=== PATIENT | male | born 1955 | race Caucasian/White ===

== ENCOUNTER → 2017-04-26 11:48 | Outpatient (CLI) | payer OTHER, SELFPAY ==
--- NOTE | 2017-04-26 11:56 | RAD_ITS ---
STUDY: X-RAY - PELVIS AND RIGHT HIP REASON FOR EXAM: Male, 61 years old. Pain, recent injury TECHNIQUE: Three views of the pelvis and hip were obtained. COMPARISON: None. FINDINGS: The bowel gas pattern is unremarkable. There are numerous phleboliths in the pelvis. There are scattered vascular calcifications. There are mild degenerative changes in the lower lumbar spine. There are surgical changes in the lower lumbar spine. The visualized iliac wings, sacroiliac joints and sacrum are unremarkable. No abnormalities are seen in the visualized superior and inferior pubic rami. Normal appearing pubic symphysis. The visualized ischial tuberosities are unremarkable. The proximal femur shows no significant abnormalities. The acetabulum shows no significant abnormalities. There is mild articular joint space narrowing of the hip. RAD/Hip 2-3 Views with Pelvis IMPRESSION: No acute abnormalities are seen in the pelvis or right hip. There are mild degenerative changes in the right hip joint. Electronically Signed: Lillian Ozuna MD at 17:33 EST Tel Direct: [phone], Service support ,
== END ==
PROVIDERS: Family Provider Internal Medicine; PCP Internal Medicine; Visit Provider Internal Medicine
DX: M25.551 Pain in right hip (principal)
CPT/HCPCS: 73502

== ENCOUNTER → 2018-01-31 13:22 | Outpatient (CLI) | payer OTHER, SELFPAY ==
--- NOTE | 2018-01-31 13:26 | RAD_ITS ---
STUDY: X-RAY - RIGHT HAND REASON FOR EXAM: Male, 62 years old. Chronic pain TECHNIQUE: 2 view(s) of the hand. COMPARISON: None. FINDINGS: There are degenerative changes involving the interphalangeal joints of the little finger. There are no acute fractures or dislocations. The soft tissues noted are normal.. . Electronically Signed: Tan Miller MD at 4:42 EST Tel , Service support , RAD/Hand 2 Views
--- NOTE | 2018-01-31 13:26 | RAD_ITS ---
STUDY: X-RAY - LEFT HAND REASON FOR EXAM: Male, 62 years old. Chronic pain TECHNIQUE: 2 view(s) of the hand. COMPARISON: None. FINDINGS: Osteoarthritis is present involving the scaphotrapezial joint, the first carpometacarpal joint, the first interphalangeal joint, and the second distal interphalangeal joint. No fractures or erosive lesions are seen. Soft tissues are intact. RAD/Hand 2 Views IMPRESSION: Multifocal osteoarthritis as described. Electronically Signed: Leon Starks MD at 9:39 EST Tel , Service support ,
== END ==
PROVIDERS: Family Provider Internal Medicine; PCP Internal Medicine; Referring Provider Internal Medicine; Visit Provider Internal Medicine
DX: M79.641 Pain in right hand (principal); M79.642 Pain in left hand
CPT/HCPCS: 73120

== ENCOUNTER 2018-08-07 11:21 | Emergency (ER) | payer OTHER, SELFPAY ==
[2018-08-07 11:23] VITALS: BP 125/83; PULSE 66; RESP 16; TEMP 36.6; O2SAT 99; BMI 29.0
--- NOTE | 2018-08-07 11:49 | ED.VIS.GEN ---
History of Present Illness Chief Complaint: Foreign Body Informant: Patient Onset: Today Context: Sudden Onset Timing: Continuous Quality: Barbed fishhook right thenar eminence Location: Right thenar eminence Current Severity: Mild Maximum Severity: Moderate Worsened by: attempt to remove fishhook Relieved by: Nothing Associated Symptoms: No paresthesia or anesthesia Narrative: Patient is a 62-year-old male who presents with fishhook right thenar eminence. Immunization is not up-to-date. He is on no immunosuppressive agents. No history rheumatic fever, murmur, SBE or IV drug use. Stanberry has never been used. Prior similar symptoms: No Recent Illness/Hospitalization: No - Past Medical History (1) Prostate CA Status: Acute (2) Anxiety disorder Status: Chronic (3) Bicuspid aortic valve Status: Chronic (4) COPD (chronic obstructive pulmonary disease) Status: Chronic Past Medical History - Allergies and Home Meds Allergies/Adverse Reactions: Allergies acetaminophen [From Vicodin] Adverse Reaction (Verified 08/07/18 11:23) Itching hydrocodone bitartrate [From Vicodin] Adverse Reaction (Verified 08/07/18 11:23) Itching Primary Care Physician: Lyudmila Brewer DO [Primary Care Provider] - Prior records reviewed: Yes - History of chronic pain Surgical History: - - 3 back surgeries Prostate surgery 2 knee surgeries 2 shoulder surgeries Lives: Spouse/ Significant Other Smoking Status: Former smoker Drugs: None - Family History Maternal Family History: Reports: No pertinent history Additional Family History: father had lung cancer Review of Systems General: Denies: Chills, Fever, Malaise, Sweats Musculoskeletal: Reports: Extremity Pain. Denies: Myalgias, Arthralgias, Neck pain, Back pain, Swelling Skin: Reports: Wounds. Denies: Rash Neurological: Denies: Weakness, Parasthesia, Numbness Physical Exam Vital Signs/Narrative: Vital Signs Temp Pulse Resp BP Pulse Ox 08/07/18 11:23 97.8 F 66 16 125/83 H 99 Inital Vital Signs reviewed: Yes General: Well nourished, Well developed, No Acute Distress Head: Normocephalic, Atraumatic Eyes: Perrl, EOMI ENT: Moist mucous membranes, No rhinorrhea Cardiovascular: Regular rate, Regular rhythm Respiratory: No distress Extremities: No edema, Tenderness - Secondary to retained foreign body Skin: Normal color, No rash, Trauma. Negative for: Cyanosis, Diaphoresis, Jaundice Neurological: Alert, Oriented x3, Cranial nerves II-XII grossly intact, Normal Strength, Normal Sensation Diagnostic/Tx/Re-eval - Medical Decision Making She has a barbed 3 took more. 1 of the hooks went into the right thenar eminence. There is no evidence of infection. The area was anesthetized. The fishhook was cut with wire cutters. The part of the 3 pronged hook was pushed through and removed without difficulty. Immunization was updated and patient discharged with appropriate home-going instructions. Procedures Procedure(s): Oval fishhook right thenar eminence as described under medical decision making. ED Disposition - Plan for ED Patient: Disposition: Home or Assisted Living Diagnosis: Stanberry injury to finger Instructions: ED Foreign Body Soft Tissue Removed Referrals: Lyudmila Brewer, [Primary Care Provider] - As Needed
[2018-08-07] MEDS: Diphth,Pertuss(Acell),Tet Vac 0.5 ML Vial IM (11:59)
== END 2018-08-07 12:08 | disposition home or self-care (01) ==
LOC: ED 12:04
PROVIDERS: Emergency Provider Emergency Medicine; Family Provider Internal Medicine; PCP Internal Medicine
DX: S69.91XA Unspecified injury of right wrist, hand and finger(s), initial encounter (principal); W45.8XXA Other foreign body or object entering through skin, initial encounter; Z87.891 Personal history of nicotine dependence; Z88.5 Allergy status to narcotic agent; J44.9 Chronic obstructive pulmonary disease, unspecified; Q23.1 Congenital insufficiency of aortic valve; F41.9 Anxiety disorder, unspecified; Z85.46 Personal history of malignant neoplasm of prostate
CPT/HCPCS: 90471; 90715; 99284

== ENCOUNTER → 2018-10-18 07:11 | Outpatient (CLI) | payer OTHER, SELFPAY ==
--- NOTE | 2018-10-18 07:28 | MRI_ITS ---
STUDY: MRI LUMBAR SPINE WITHOUT CONTRAST REASON FOR EXAM: Male, 62 years old. Back pain and radiculopathy TECHNIQUE: Standardized fat and water weighted pulse sequences were obtained in the sagittal and axial planes. COMPARISON: MR lumbar spine 12/19/2005 FINDINGS: There is posterior fusion of L4 and L5 with transpedicular screws and rods. T12-L1: Normal endplates. Mild disc space narrowing and annular disc bulge. Normal bilateral facet joints. Normal central canal and bilateral lateral recesses. Normal bilateral intervertebral neural foramina. Normal lumbar lordosis. There is no substantial scoliosis. Normal conus medullaris that terminates at the T12-L1 level L1-2: Normal endplates. Mild disc space narrowing and annular disc bulge. Normal bilateral facet joints. Normal central canal and bilateral lateral recesses. Normal bilateral intervertebral neural foramina. L2-3: Normal endplates. Mild disc space narrowing and annular disc bulge. Normal bilateral facet joints. Normal central canal and bilateral lateral recesses. Normal bilateral intervertebral neural foramina. L3-4: Normal endplates. There is mild disc space narrowing and mild annular disc bulge. There is a new central, right paracentral disc protrusion with inferior migration this measures approximately 1.3 x 1.6 x 2 cm. Bilateral facet arthropathy. There is ligamentum flavum hypertrophy. There is moderate to marked right-sided central canal narrowing and impingement on the right descending nerve root. There is mild right neural foraminal narrowing. L4-5: Normal endplates. Normal disc height, hydration and morphology. Normal bilateral facet joints. Normal central canal and bilateral lateral recesses. Evaluation of the neural foramina somewhat limited by metallic artifact. L5-S1: Normal endplates. Normal disc height, hydration and morphology. Normal bilateral facet joints. Normal central canal and bilateral lateral recesses. Normal bilateral intervertebral neural foramina. Normal visualized sacral ala. Normal visualized paraspinous soft tissue structures. MRI/Spine Lumbar (Routine) IMPRESSION: There is a new, large central and right paracentral disc protrusion at L3-L4 with inferior migration as described in detail above. Mild to moderate multilevel degenerative disc disease as described above. Electronically Signed: Mercedes Macario, at 10:26 EDT Tel , Service support ,
== END ==
PROVIDERS: Family Provider Internal Medicine; PCP Internal Medicine; Referring Provider Anesthesiology Pain Medicine; Visit Provider Anesthesiology Pain Medicine
DX: M51.26 Other intervertebral disc displacement, lumbar region (principal); S32.009A Unspecified fracture of unspecified lumbar vertebra, initial encounter for closed fracture
CPT/HCPCS: 72148

== ENCOUNTER → 2019-07-07 07:52 | Outpatient (CLI) | payer MEDICARE, OTHER, SELFPAY ==
--- NOTE | 2019-07-07 07:59 | CT_ITS ---
STUDY: CT SCAN LOWER EXTREMITY LEFT REASON FOR EXAM: Male, 63 years old. LEFT KNEE OSTEOARTHRITIS, SWAPNIL PROTOCOL RADIATION DOSAGE (If Supplied By Facility): CTDIvol = ( 30.70 ) mGy, DLP = ( 2142.08 ) mGycm. Individualized dose optimization techniques were used for this CT.? TECHNIQUE: Multiple axial tomographic images of the left hip joint, left knee joint and left ankle joint were obtained. Axial and coronal reconstruction was obtained as well. COMPARISON: None. FINDINGS: Focal calcification is seen overlying the greater trochanter of the proximal left femur suggestive of a calcific bursitis. There is minimal degree of joint space narrowing. There is evidence of a chondrocalcinosis of the medial and lateral menisci. The joint space is well maintained. Mild degree of degenerative changes at the patellofemoral joint with a spur formation at the insertion of the quadriceps tendon. Vascular calcification. There is evidence of a talar beak involving the anterior aspect of the talus. There is evidence of a plantar spur as well as a spur at insertion of the Achilles tendon. There is also evidence of an os trigonum of the ankle. CT/Extremity Lower without Contra IMPRESSION: Chondrocalcinosis of the medial and lateral menisci with the mild patellofemoral osteoarthritis. Findings suggestive of calcific tendinitis of the greater trochanter. Talar beak. Plantar spurs. Electronically Signed: Vasquez Smith, at 10:08 EDT , Service support ,
== END ==
PROVIDERS: PCP Internal Medicine; Referring Provider Orthopaedic Surgery; Visit Provider Orthopaedic Surgery
DX: M17.12 Unilateral primary osteoarthritis, left knee (principal)
CPT/HCPCS: 73700

== ENCOUNTER 2019-07-28 11:47 | Observation (INO) | payer MEDICARE, OTHER, SELFPAY ==
--- NOTE | 2019-07-24 08:48 | EKG12_ITS ---
Test Reason : PRE-OP Blood Pressure : / mmHG Vent. Rate : 052 BPM Atrial Rate : 052 BPM P-R Int : 184 ms QRS Dur : 104 ms QT Int : 426 ms P-R-T Axes : 063 019 086 degrees QTc Int : 396 ms Sinus bradycardia Nonspecific T wave abnormality Abnormal ECG Confirmed by SILVANO MALLORY, MAGALYS ([id number]), fashion editor ANTONIETTA FOSTER ([id number]) on 07/28/2019 11:33:41 AM Referred By: Chance Steve Confirmed By:JEFFRY SCHAEFER MD
[2019-07-24 09:00] LABS: Absolute Lymphocyte Count 1.06 X10^3/uL (0.83-4.51); Absolute Neutrophil Count 2.5 X10^3/uL (2.0-7.7); Basophil# 0.04 X10^3/uL; Basophil% 0.9 % (0-1); Eosinophil# 0.16 X10^3/uL; Eosinophils% 3.7 % (0-5); Hematocrit 41.9 % (40-54); Hemoglobin 14.1 g/dL (13.0-16.5); Lymphocyte # 1.06 X10^3/ul (4.0); Lymphocyte % 24.3 % (19-41); Mean Corp Hgb Conc 33.7 g/dL (32-36); Mean Corpuscular Hgb 30.9 pg (27.0-32.0); Mean Corpuscular Volume 91.7 fL (80-94); Mean Platelet Vol. 8.8 fl (6.2-12.0); Monocyte# 0.56 X10^3/uL; Monocyte% 12.8 % (0-10); NRBC Flagged by Analyzer 0 % (0-5); Neutrophil # 2.53 X10^3/uL (2.7-7.7); Neutrophil % 58.1 % (47-70); Platelet Count 291 K/mm3 (150-450); RBC Distribution Width CV 12.1 % (11.6-14.6); RBC Distribution Width SD 40.5 fl (35.1-43.9); Red Blood Count 4.57 M/mm3 (4.6-6.2); White Blood Count 4.4 K/mm3 (4.4-11.0)
[2019-07-24 09:21] LABS: Anion Gap 6 (5-15); BUN 15 mg/dL (7-18); BUN/Creat Ratio 14.2 RATIO (10-20); Calcium,Total 9.1 mg/dL (8.5-10.1); Chloride 105 mmol/L (98-107); Creatinine, Serum 1.06 mg/dL (0.70-1.30); EST Glomerular Filtration Rate 74 mL/min (>60); Est Glom Filt Rate - Afr Amer 90 mL/min (>60); Glucose 114 mg/dL (74-106); Potassium 4.5 mmol/L (3.5-5.1); Sodium Level 137 mmol/L (136-145)
[2019-07-24 09:21] LABS: AST(SGOT) 44 U/L (15-37); Alanine Aminotransfer ALT/SGPT 64 U/L (16-61); Albumin, Serum 3.6 g/dL (3.2-5.0); Alkaline Phosphatase 87 U/L (45-117); Bilirubin, Direct 0.18 mg/dL (0.00-0.30); Globulin 3.7 g/dL (2.2-4.2); Protein, Total 7.3 g/dL (6.4-8.2)
[2019-07-24 09:44] LABS: International Normalized Ratio 0.9; Prothrombin Time (Protime)PT. 11.7 SECONDS (11.7-14.9)
[2019-07-24 09:45] LABS: Partial Thromboplast Time 29.8 Seconds (24.1-36.2)
[2019-07-25 13:07] LABS: Probe Check PASS; SARS-COV-2 DNA by PCR Negative (Negative); Specimen Processing Control PASS
[2019-07-28] VITALS (13 sets, daily range): BP systolic 100–135; BP diastolic 48–77; PULSE 57–98; RESP 16–18; TEMP 36.3–37.1; O2SAT 94–100; BMI 30.3
[2019-07-28] MEDS: Acetaminophen 500 MG Tablet 1000 MG PO ×3 (08:14→22:05)
[2019-07-28] MEDS: Gabapentin 600 MG Tablet PO (08:15)
[2019-07-28] MEDS: Lactated Ringers 1,000 ML 100 ML IV (08:20)
[2019-07-28 08:56] LABS: Bedside Glucose 105 mg/dL (70-110)
--- NOTE | 2019-07-28 09:30 | KNEE_PTH ---
PATIENT: KIERSTEN ANDREA LOC: MS3 U#:[id number] AGE/SX: 63/M ROOM: PR313 RE07/28/[address]: Dr. Chance Steve DO : 1955 BED: 1 DIS: 07/29/2019 SPEC #: [id number] RECD: 07/28/19 13:18 STATUS: BRUCE REQ #: [id number] RYAN: 07/28/19 09:[address]: Chance Steve DEPT: SURGICAL PATHOLOGY RECD BY: Christopher Layton ENTERED: 07/29/19 09:34 SP TYPE: TOTAL KNEE OTHR DR: Dr. Lyudmila Brewer DO Tissues: Knee, NOS Procedures: Decalcification bone/plaque Surgery Specimen Level IV HEADER OPERATION: ERAS, total knee arthroplasty, robotic assisted PRE-OP DIAGNOSIS: Unilateral primary osteoarthritis left knee TISSUE SUBMITTED: Soft tissue and bone left knee MICROSCOPIC DIAGNOSIS Bone and soft tissue of left knee, total knee resection: Consistent with degenerative joint disease. AM:lawson 08/01/19 MICROSCOPIC DESCRIPTION Slides are reviewed. GROSS DESCRIPTION Received is one container designated bone and soft tissue left knee. The specimen consists of multiple fragments of hawkins-yellow bone measuring in aggregate 15 x 10 x 1.5 cm. Also in the specimen container are multiple fragments of yellow-white soft tissue measuring in aggregate 2 x 1 x 0.5 cm. A number of bony fragments contain articular surfaces consistent with tibial plateau and femoral condyle and displaying prominent osteophyte formation, eburnation, and bone erosion. [employer] Consultant sections are submitted in two cassettes as follows: 1 - soft tissue, 2 - bone after decalcification. / AM:lawson 07/29/19 TC:5 CPT: 41667, 18668
[2019-07-28] MEDS: Cefazolin 2 GM in 0.9% Normal Saline 100 ML IV (09:32)
--- NOTE | 2019-07-28 12:10 | RAD_ITS ---
STUDY: X-RAY - LEFT KNEE REASON FOR EXAM: Male, 63 years old. Post op left knee TECHNIQUE: AP and lateral view(s) of the knee. COMPARISON: None. FINDINGS: Normal visualized distal femur. Normal visualized proximal tibia and fibula. Normal proximal tibiofibular articulation. The patient is status post total knee replacement. There is good alignment. Postoperative soft tissue changes. RAD/Knee 1 or 2 Views IMPRESSION: The patient is status post total knee replacement. There is good alignment. Postoperative soft tissue changes. Electronically Signed: Vasquez Smith, at 13:00 EDT , Service support ,
[2019-07-28 12:50] LABS: Hemoglobin 13.8 g/dL (13.0-16.5); Mean Corp Hgb Conc 32.9 g/dL (32-36); Mean Corpuscular Hgb 30.9 pg (27.0-32.0); Mean Corpuscular Volume 94.2 fL (80-94); Mean Platelet Vol. 8.5 fl (6.2-12.0); Platelet Count 260 K/mm3 (150-450); RBC Distribution Width CV 12.4 % (11.6-14.6); RBC Distribution Width SD 42.5 fl (35.1-43.9); Red Blood Count 4.46 M/mm3 (4.6-6.2); White Blood Count 6.6 K/mm3 (4.4-11.0)
[2019-07-28 12:58] LABS: Anion Gap 8 (5-15); BUN 16 mg/dL (7-18); Calcium,Total 8.3 mg/dL (8.5-10.1); Chloride 106 mmol/L (98-107); Creatinine, Serum 1.23 mg/dL (0.70-1.30); EST Glomerular Filtration Rate 63 mL/min (>60); Est Glom Filt Rate - Afr Amer 76 mL/min (>60); Estimated Creatinine Clearance 67.67 ml/min; Glucose 139 mg/dL (74-106); Potassium 4.2 mmol/L (3.5-5.1); Sodium Level 139 mmol/L (136-145)
[2019-07-28] MEDS: Lactated Ringers 1,000 ML 125 ML IV ×2 (13:21→21:38)
[2019-07-28] MEDS: morphine SR 15 MG Tablet PO ×2 (14:55→22:00)
[2019-07-28] MEDS: Cefazolin 1 GM/50 ML BAG IV (17:45)
[2019-07-28] MEDS: Senna/Docusate Sodium 1 Tablet 2 TABLET PO (22:05)
[2019-07-28] MEDS: Atorvastatin Calcium 10 MG Tablet PO (22:05)
[2019-07-28] MEDS: Aspirin 325 MG Tablet PO (22:05)
[2019-07-29] MEDS: Cefazolin 1 GM/50 ML BAG IV (01:58)
[2019-07-29 02:00] VITALS: BP 110/76; PULSE 74; RESP 16; TEMP 36.9; O2SAT 97
[2019-07-29] MEDS: morphine SR 15 MG Tablet PO ×2 (05:49→13:19)
[2019-07-29] MEDS: Acetaminophen 500 MG Tablet 1000 MG PO ×2 (05:50→13:19)
[2019-07-29 06:06] LABS: Hematocrit 37.1 % (40-54); Mean Corp Hgb Conc 32.3 g/dL (32-36); Mean Corpuscular Hgb 31.3 pg (27.0-32.0); Mean Corpuscular Volume 96.6 fL (80-94); Mean Platelet Vol. 8.7 fl (6.2-12.0); Platelet Count 249 K/mm3 (150-450); RBC Distribution Width CV 12.9 % (11.6-14.6); RBC Distribution Width SD 45.6 fl (35.1-43.9); Red Blood Count 3.84 M/mm3 (4.6-6.2)
[2019-07-29 06:29] LABS: Anion Gap 6 (5-15); BUN 12 mg/dL (7-18); BUN/Creat Ratio 11.9 RATIO (10-20); Calcium,Total 7.8 mg/dL (8.5-10.1); Chloride 109 mmol/L (98-107); Creatinine, Serum 1.01 mg/dL (0.70-1.30); EST Glomerular Filtration Rate 79 mL/min (>60); Est Glom Filt Rate - Afr Amer 95 mL/min (>60); Estimated Creatinine Clearance 82.41 ml/min; Glucose 152 mg/dL (74-106); Potassium 4.4 mmol/L (3.5-5.1); Sodium Level 141 mmol/L (136-145)
--- NOTE | 2019-07-29 07:07 | PCM.PN.ORT ---
Subjective: The patient was sitting in chair upon examination. Patient denies chest pain, shortness of breath, dizziness, lightheadedness, nausea, vomiting or calf pain. Pain is controlled on medications. No adverse events overnight. The patient states he is doing well overall. Denies any questions or concerns. Objective: Vital signs stable. Patient is afebrile. Patient is able to plantar flex and dorsiflex actively. Sensation is intact to light touch to saphenous, sural, superficial and deep peroneal and tibial nerve distributions. Dressing is clean, dry and intact. Negative Homans bilaterally. Negative signs and symptoms of DVT. - Physical Exam Vitals/I&O's: Vital Signs Temp Pulse Resp BP Pulse Ox 98.5 F 74 16 110/76 97 07/29/19 02:00 07/29/19 02:00 07/29/19 02:00 07/29/19 02:00 07/29/19 02:00 Oxygen Flow Rate (L/min) 4 Oxygen Delivery Method Nasal Cannula Weight: 104.2 kg Body Mass Index (BMI) 30.3 Intake and Output for Last 24 Hours 07/27/19 07/28/19 07/29/19 23:59 23:59 23:59 Intake Total 3173.75 / 3773.75 2100. / 2099.00 Output Total 250 / 1500 2099 / 2099 Balance 2923.75 / 2273.75 0 / 0 General: Alert, Oriented x3, Cooperative HEENT: Atraumatic, PERRLA Extremities: Capillary Refill Less than 3 Seconds, No Calf Tenderness, Edema - Postoperative swelling appreciated. Skin: No rashes, No breakdown Neurological: Cranial nerves II-XII grossly intact Psych/Mental Status: Normal Affect, Appropriate Laboratory Results 07/28/19 08:10: POC Glucose 105 07/28/19 12:35: WBC 6.6, RBC 4.46 L, Hgb 13.8, Hct 42.0, MCV 94.2 H, MCH 30.9, MCHC 32.9, RDW Std Deviation 42.5, RDW Coeff of Doug 12.4, Plt Count 260, MPV 8.5 07/28/19 12:35: Sodium 139, Potassium 4.2, Chloride 106, Carbon Dioxide 25.0, Anion Gap 8, BUN 16, Creatinine 1.23, Estim Creat Clear Calc 67.67, Est GFR (MDRD) Af Amer 76, Est GFR (MDRD) Non-Af 63, BUN/Creatinine Ratio 13.0, Glucose 139 H, Calcium 8.3 L 07/29/19 05:42: WBC 7.0, RBC 3.84 L, Hgb 12.0 L, Hct 37.1 L, MCV 96.6 H, MCH 31.3, MCHC 32.3, RDW Std Deviation 45.6 H, RDW Coeff of Doug 12.9, Plt Count 249, MPV 8.7 07/29/19 05:42: Sodium 141, Potassium 4.4, Chloride 109 H, Carbon Dioxide 26.0, Anion Gap 6, BUN 12, Creatinine 1.01, Estim Creat Clear Calc 82.41, Est GFR (MDRD) Af Amer 95, Est GFR (MDRD) Non-Af 79, BUN/Creatinine Ratio 11.9, Glucose 152 H, Calcium 7.8 L Current Medications Acetaminophen (Tylenol) 1,000 mg PO Q8 [facility] Last Admin: 07/29/19 05:50 Dose: 1,000 mg Documented by: [facility]) [facility] Admin: 07/28/19 22:05 Dose: 325 mg Documented by: Atorvastatin Calcium (Lipitor) 10 mg PO QHS [facility] Last Admin: 07/28/19 22:05 Dose: 10 mg Documented by: Cholecalciferol (Vitamin D (25mcg)) [facility] Last Admin: 07/28/19 17:45 Dose: 1,000 unit Documented by: Citalopram Hydrobromide (Celexa) 20 mg PO DAILY [facility] Cyclobenzaprine HCl (Flexeril) 10 mg PO TID PRN PRN PRN Reason: Muscle spasm Diphenhydramine HCl (Benadryl) 25 mg PO TID PRN PRN PRN Reason: ITCHING Docusate Sodium (Colace) 100 mg PO DAILY PRN PRN Reason: Constipation Sodium Chloride () 250 mls @ 15 mls/hr IV .[id number] PRN PRN Reason: Saline Flush Sodium Chloride () 250 mls @ 15 mls/hr IV .[id number] PRN PRN Reason: Additional IVPB Infusion Loratadine (Claritin) 10 mg PO DAILY [facility] Losartan Potassium (Cozaar) 50 mg PO DAILY [facility] Morphine Sulfate (Ms Contin) 15 mg PO TID [facility] Last Admin: 07/29/19 05:49 Dose: 15 mg Documented by: Ondansetron HCl (Zofran) 4 mg IV Q8H PRN PRN PRN Reason: NAUSEA Oxycodone HCl (Oxyir) 5 - 10 mg PO Q4H PRN PRN PRN Reason: Pain Score 4-10/10 Pantoprazole Sodium (Protonix) 40 mg PO DAILY [facility] Promethazine HCl (Phenergan) 12.5 mg IM Q6H PRN PRN; Protocol PRN Reason: NAUSEA/VOMITING Senna/Docusate Sodium (Senokot-S, Ashley-Colace) 2 tablet PO BID [facility] Last Admin: 07/28/19 22:05 Dose: 2 tablet Documented by: Sodium Chloride () 10 - 40 ml IV UD PRN PRN Reason: SALINE FLUSH Medical Necessity - Tobacco Use Smoking Status: Former smoker Assessment/Plan All Active Problems Prostate CA (Acute) 1. Status post left total knee arthroplasty post operative day #1. 2. Continue pain medications: Extra strength Tylenol and MS Contin 3. DVT prophylaxis: Aspirin 325 mg twice daily and thigh-high ALLI hose 4. PT/OT: Weightbearing as tolerated 5. H & H: 12.0/37.1, asymptomatic 6. WBCs: 7.0, afebrile 7. Encouraged incentive spirometry. 8. Continue postoperative medical management per medicine. 9: Postoperative drainage: Dressing is clean dry and intact. The dressing will remain on for 5 days. He may remove the dressing in 5 days. Patient may shower 24 hours postoperatively as long as dressing is clean, dry and intact to the skin. 9. Disposition: Plan will be for discharge home today after physical therapy. Prescriptions will be sent to the retail pharmacy at [facility]. Patient will follow-up per postop instruction sheet. The patient will be participating in outpatient physical therapy at [facility].
--- NOTE | 2019-07-29 07:13 | PCM.DC.TKR ---
Discharge Diet: No Restrictions Discharge Activity: May Not Drive May shower in (days): 1 Ice area for (Minutes): 20 - every hour while awake. Weight Bearing Status: Weight bearing as tolerated Elevate: Operative Extremity Additional Activity Instructions:: Wear elastic stockings for 2 weeks after your surgery. Call your doctor if your incision/area has: Continuous Slow Oozing, Sudden Increased Bleeding, Increased Pain/ Swelling, Increased Redness, Foul Smelling Discharge Call your doctor if you observe: Fever of 101 or Higher, Coldness, Increased Pain, Numbness or Tingling, Change in Color, Calf discomfort, Uncontrolled pain Remove Dressing in (days):: 5 Cleanse incision/area with: Soap & Water Allergies/Adverse Reactions: Allergies hydrocodone bitartrate [From Vicodin] Adverse Reaction (Verified 07/28/19 08:02) Itching Medications to take at Discharge Aspirin [Aspirin, Baby] 81 mg PO QHS 05/27/15 Cholecalciferol (VIT D3) [Vitamin D3] 1,000 unit PO BID 05/27/15 Citalopram [Celexa] 20 mg PO DAILY 05/27/15 Docusate Sodium [Colace] 100 mg PO DAILY PRN 05/27/15 Simvastatin [Zocor] 20 mg PO QHS 05/27/15 Celecoxib [Celebrex] 200 mg PO QHS 07/22/19 Cetirizine HCl [Zyrtec] 10 mg PO DAILY 07/22/19 DiphenhydrAMINE [Benadryl] 25 mg PO DAILY PRN 07/22/19 Losartan Potassium 50 mg PO DAILY 07/22/19 Omeprazole 40 mg PO DAILY 07/22/19 Morphine Sulfate [Morphine Sulfate ER] 15 mg PO TID 07/28/19 Primary Care Physician: Lyudmila Brewer DO [Primary Care Provider] - Test Results: Test results from this visit will be discussed in further detail at your follow-up appointment, if applicable. Please Follow Up With: Angela When: August 07 at 8:15 am for staple removal/tech visit Please Follow Up With: Main Ken PA-C When: August 26, 2019 for follow up appt. Please Follow Up With: Physical Therapy at [facility] When: August 01, 2019 at 08:00 am
[2019-07-29 08:35] VITALS: BP 120/50; PULSE 67; RESP 16; TEMP 37; O2SAT 95
[2019-07-29] MEDS: Aspirin 325 MG Tablet PO (08:50)
[2019-07-29] MEDS: oxyCODONE 5 MG Tablet PO (10:02)
[2019-07-29] MEDS: Citalopram 20 MG Tablet PO (10:03)
[2019-07-29] MEDS: Loratadine 10 MG Tablet PO (10:03)
[2019-07-29] MEDS: Pantoprazole Sodium 40 MG Tablet PO (10:03)
[2019-07-29] MEDS: Losartan Potassium 50 MG Tablet PO (10:03)
[2019-07-29] MEDS: Senna/Docusate Sodium 1 Tablet 2 TABLET PO (10:04)
[2019-07-29 11:00] VITALS: O2SAT 95
--- NOTE | 2019-07-29 11:00 | CASEMGMT ---
RN CM Face to Face with patient for initial transition planning/care coordination assessment. RN CM introduced self and role at [facility]. Patient lying in bed, alert and oriented. Patient willing to participate in assessment and is able to answer all questions appropriately. Care providers, pharmacy, and demographics verified. Patient wishes to discharge home and is setup with [facility] for outpatient therapy. Patient states he has no further needs or concerns at this time. CM to follow for discharge planning needs that may arise. PCP: Daniella Specialists: eileen Steve; jannet Rodas [facility] Benef[facility]: yes Living Will/HPOA: yes Hanh Sahu LNOK: Living Arrangements: patient lives with in single story home with 2 steps and railing to enter the home. Transportation: DME/HHC: Patient states he has shower bench, raised toilet, lift chair, and walker. Patient is scheduled for outpatient therapy at [facility]. Disposition Plan: Patient to discharge home with outpatient therapy, family support, and follow-up plans in place. Roxann CARDONA, RN, CM
[2019-07-29] MEDS: Ketorolac 15 MG/ML Vial IV (13:13)
[2019-07-29] MEDS: 0.9% Saline Lock 10 ML Syringe IV (13:13)
[2019-07-29 14:05] VITALS: BP 120/64; PULSE 74; RESP 16; TEMP 37.2; O2SAT 93
== END 2019-07-29 14:34 | disposition home or self-care (01) ==
LOC: SDC 11:59 → MS3 11:59
PROVIDERS: Anesthesiology; Admitting Provider Orthopaedic Surgery; PCP Internal Medicine; Referring Provider Orthopaedic Surgery; Visit Provider Orthopaedic Surgery
PROC: 0SRD0JZ Replacement of Left Knee Joint with Synthetic Substitute, Open Approach (ICD-10-PCS; CPT 27447; principal; 2019-07-28 09:00)
DX: M17.12 Unilateral primary osteoarthritis, left knee (principal); K21.9 Gastro-esophageal reflux disease without esophagitis; E78.00 Pure hypercholesterolemia, unspecified; F41.9 Anxiety disorder, unspecified; Z79.899 Other long term (current) drug therapy; Z79.82 Long term (current) use of aspirin; Z87.891 Personal history of nicotine dependence; Z85.46 Personal history of malignant neoplasm of prostate; Z86.718 Personal history of other venous thrombosis and embolism; I10 Essential (primary) hypertension; G62.9 Polyneuropathy, unspecified; J44.9 Chronic obstructive pulmonary disease, unspecified; M21.162 Varus deformity, not elsewhere classified, left knee
CPT/HCPCS: 01400; 27447; 64447; S2900; 36415; 73560; 80048; 80076; 82962; 85025; 85027; 85610; 85730; 87081; 87635; 88305; 88311; 93005; 96361; 96365; 96366; 96375; 97110; 97116; 97162; 97166; 97530; 99218; 99251; C1776; G2023; J7120; A4216; G0378; G0379; G0463; J2405; U0004

== ENCOUNTER 2019-08-01 09:10 | Inpatient (IN) | payer MEDICARE, OTHER, SELFPAY ==
[2019-07-28 13:57] VITALS: BMI 30.3
[2019-08-01] VITALS (14 sets, daily range): BP systolic 92–135; BP diastolic 38–91; PULSE 59–80; RESP 12–18; TEMP 36.6–37.2; O2SAT 94–100; BMI 29.5; BMI 30.7
--- NOTE | 2019-08-01 09:27 | EKG12_ITS ---
Test Reason : Blood Pressure : / mmHG Vent. Rate : 058 BPM Atrial Rate : 058 BPM P-R Int : 138 ms QRS Dur : 100 ms QT Int : 450 ms P-R-T Axes : 025 021 080 degrees QTc Int : 441 ms Sinus bradycardia with sinus arrhythmia Otherwise normal ECG Confirmed by MANDIE MALLORY, KODAK ([id number]), television news video editor JARET ELISE ([id number]) on 08/04/2019 1:37:41 PM Referred By: DARIAN Confirmed By:KODAK LOCKWOOD MD
--- NOTE | 2019-08-01 09:27 | CT_ITS ---
STUDY: CTA CHEST REASON FOR EXAM: Male, 63 years old. PT STATED KNEE REPLACEMENT X 5 DAYS AGO WITH INCREASED SOB, HX OF PE, HTN, SOB, COPD, PROSTATE CA RADIATION DOSAGE (If Supplied By Facility): CTDIvol = ( 16.89 ) mGy, DLP = ( 606.75 ) mGycm TECHNIQUE: The examination was performed with the intravenous administration of 100ML ISOVUE 370. Post-processing of the angiographic images was performed, with multiplanar reformation and 3D reconstruction. Individualized dose optimization techniques were used for this CT. COMPARISON: Comparison is made with prior examination dated January 11, 2016. FINDINGS: There is evidence of intraluminal filling defects in the right interlobar artery as well as multiple branches in the right lower lobe pulmonary artery. This is in keeping with pulmonary emboli. There is also evidence of intraluminal filling defects in the left lower lobe pulmonary arterial branches. Normal thoracic aorta and visualized great vessels. There is no demonstrated aortic dissection. Normal heart and pericardium. There are visualized mediastinal lymph nodes, which are within normal size limits, and with normal morphology. Normal hilar regions. Normal visualized trachea and bronchi. The lungs are well expanded. Normal pulmonary parenchyma. Normal pleura. Normal chest wall structures. There are degenerative changes of thoracic spine. There is a 3 cm x 2.1 cm cyst in the medial upper pole of the left kidney. Small hiatal hernia. CT/CTA Chest W/WO Contrast IMPRESSION: Pulmonary emboli in the right interlobar artery extending into the right lower lobe pulmonary arterial branches as well as multiple pulmonary emboli in left lower lobe pulmonary arterial branches. Electronically Signed: Vasquez Smith, at 10:45 EDT , Service support ,
--- NOTE | 2019-08-01 09:29 | VDLE_ITS ---
Reason For Study: Leftleg swelling RIGHT LEFT CFV is compressible, spontaneous, phasic, GSV is normal. competent and demonstrates normal CFV is compressible, spontaneous, phasic, augmentation. competent, and demonstrates normal Procedure augmentation. Exam performed portable in ED. FV is compressible, spontaneous, phasic, A preliminary report was called and/or faxed competent and demonstrates normal to Pelini. augmentation. POP V is compressible, spontaneous, phasic, competent and demonstrates normal augmentation. T/P Trunk is compressible. PTV is compressible. LT PerV is compressible. Interpretation Summary The left great saphenous vein appears patent and compressible segmentally. Left great saphenous vein appears patent and compressible segmentally. Normal flow patterns right common femoral vein Ordering Physician: Eloy Hunter Referring Physician: Lyudmila Brewer M.D. Performed By: Roxann Bolton RVT
--- NOTE | 2019-08-01 09:31 | ED.VIS.DYS ---
History of Present Illness Informant: Patient Onset: Yesterday Activity at onset: Exertion, Light Activity, Rest Timing: Continuous Quality: Dyspnea on exertion Current Severity: Severe Maximum Severity: Severe Worsened by: Exertion, Lying flat Relieved by: Nothing Associated Symptoms: Negative for: Bloody Sputum, Chills, Clear sputum, Cough, Ear pain, Fever, Green sputum, Post-nasal drainage, Rhinorrhea, Sore throat, Sweats, White sputum, Yellow sputum Chest Pain: Pleuritic Narrative: 63-year-old male presents to the emergency department from physical therapy for shortness of breath and left leg pain and swelling. Status post left knee replacement he is developed worsening swelling and pain in his left leg and he is complaining of dyspnea specifically that worsened throughout the course of the night and feeling like he cannot take a deep breath. No chest pain. No cough or fever. Coronavirus test was negative prior to surgery. No vomiting or diarrhea. No myalgias. He denies numbness or tingling but does have leg swelling and bruising. He is not on antibiotics. He does have a history of a pulmonary embolism. He was on anticoagulation for 1 year but has not been on any in some time. Rest of review of systems negative PE Risk Factors: Cancer, Prior DVT or PE, Recent immobilization, Recent surgery. Negative for: OCP + Smoking + > 35, Recent travel Prior similar symptoms: Yes Recent Illness/Hospitalization: No <Eloy Hunter - Last Filed: 08/01/19 11:06> <Antonella Bonds - Last Filed: 08/13/19 00:05> Chief Complaint: Lower Extremity Injury Past Medical History Prior records reviewed: Yes Past Medical History: - - Hypertension chronic pain GERD prostate cancer COPD Surgical History: - - 3 back surgeries Prostate surgery 2 knee surgeries 2 shoulder surgeries Lives: With Family Smoking Status: Former smoker Alcohol: Occasional Drugs: None - Family History Maternal Family History: Reports: No pertinent history Additional Family History: father had lung cancer <Eloy Hunter - Last Filed: 08/01/19 11:06> <Antonella Bonds - Last Filed: 08/13/19 00:05> - Allergies and Home Meds Allergies/Adverse Reactions: Allergies hydrocodone bitartrate [From Vicodin] Adverse Reaction (Verified 08/01/19 09:11) Itching Review of Systems All systems negative except as indicated General: Denies: Chills, Fever, Malaise Eyes: Denies: Visual changes - bilaterally, Diplopia ENT: Denies: Rhinorrhea, Sore throat Cardiovascular: Reports: Chest pain. Denies: Palpitations, Heart racing Respiratory: Reports: Dyspnea, Dyspnea on exertion. Denies: Cough, Sputum, Orthopnea, Paroxysmal nocturnal dyspnea Gastrointestinal: Denies: Abdominal pain, Nausea, Vomiting, Diarrhea, Melena, Hematochezia Genitourinary: Denies: Dysuria, Hematuria, Frequency Musculoskeletal: Denies: Back pain, Extremity Pain Skin: Denies: Rash, Wounds Neurological: Denies: Headache, Weakness, Numbness Psych: Denies: Depression, Anxiety <Eloy Hunter - Last Filed: 08/01/19 11:06> Physical Exam Vital Signs/Narrative: Vital Signs Temp Pulse Resp BP Pulse Ox 08/01/19 09:16 96 08/01/19 09:11 97.9 F 68 18 129/91 H Inital Vital Signs reviewed: Yes General: Well nourished, Well developed, No Acute Distress Head: Normocephalic, Atraumatic Eyes: Perrl, EOMI ENT: Moist mucous membranes, No rhinorrhea Neck: Supple, Nontender Cardiovascular: Regular rate, Regular rhythm, No murmurs Respiratory: No distress, CTA bilaterally, Chest nontender Abdomen: Soft, Nontender, Nondistended, Normal bowel sounds Back: Nontender, Normal Inspection Extremities: - - Patient has left leg swelling asymmetrical to the right leg but his surgical incision has a dressing over it there is some mild bruising but no redness or warmth he has normal DP and PT pulse and sensation throughout his left lower extremity no lymphatic streaking or palpable cords normal inspection of right lower extremity Skin: Normal color, No rash Neurological: Alert, Oriented x3, Cranial nerves II-XII grossly intact, Normal Strength, Normal Sensation Psychological: Normal affect, Normal Mood <Eloy Hunter Filed: 08/01/19 11:06> Diagnostic/Tx/Re-eval Laboratory Tests 08/01/19 08/01/19 Range/Units 09:35 09:35 WBC 7.2 (4.4-11.0) K/mm3 RBC 3.77 L (4.6-6.2) M/mm3 Hgb 11.6 L (13.0-16.5) g/dL Hct 36.1 L (40-54) % MCV 95.8 H (80-94) fL MCH 30.8 (27.0-32.0) pg MCHC 32.1 (32-36) g/dL RDW Std Deviation 44.1 H (35.1-43.9) fl RDW Coeff of Doug 12.6 (11.6-14.6) % Plt Count 318 (150-450) K/mm3 MPV 8.9 (6.2-12.0) fl Immature Gran % (Auto) 0.700 (0.0-0.9) % Neut % (Auto) 74.7 H (47-70) % Lymph % (Auto) 12.4 L (19-41) % Fisher % (Auto) 10.8 H (0-10) % Eos % (Auto) 1.0 (0-5) % Baso % (Auto) 0.4 (0-1) % Absolute Neuts (auto) 5.4 (2.0-7.7) X10^3/uL Absolute Lymphs (auto) 0.90 (0.83-4.51) X10^3/uL Nucleated RBC % 0 (0-5) % Sodium 137 (136-145) mmol/L Potassium 4.4 (3.5-5.1) mmol/L Chloride 105 (98-107) mmol/L Carbon Dioxide 26.0 (21.0-32.0) mmol/L Anion Gap 6 (5-15) BUN 17 (7-18) mg/dL Creatinine 0.98 (0.70-1.30) mg/dL Estim Creat Clear Calc 84.93 ml/min Est GFR (MDRD) Af Amer 99 (>60) mL/min Est GFR (MDRD) Non-Af 82 (>60) mL/min BUN/Creatinine Ratio 17.4 (10-20) RATIO Glucose 104 (74-106) mg/dL Calcium 9.3 (8.5-10.1) mg/dL Troponin I < 0.015 (<0.045) ng/mL - Rhythm Strip Rhythm Strip: Sinus Rhythm Rate: 60 Ectopy: None - EKG Initial EKG Interpretation: Sinus Rhythm, No Acute Injury Pattern Prior: Unchanged Repeat Evaluation: No change With Ambulation: Desaturation - Medical Decision Making Patient presents with shortness of breath status post recent knee replacement. He is not anticoagulated but does have a history of a pulmonary embolism. EKG showed no signs of ischemia. He was essentially asymptomatic with normal vitals at rest. Ultrasound left lower extremity showed no DVT. Laboratory work-up was unremarkable. His CTA chest showed bilateral pulmonary embolism. Initially we had considered trying to discharge the patient home on oral anticoagulant however we ambulated him with a walker and he desaturated to 75% pulse ox. We will admit secondary to this. Vital signs are stable. Hospitalist Dr Pascual states will order Lovenox and the patient was agreeable with plan <Eloy Hunter - Last Filed: 08/01/19 11:06> - Medical Decision Making Patient evaluated independently and in conjunction with physician trade sales assistant. Agree with note above unless documented otherwise. Patient is evaluated for shortness of breath status post knee replacement. Patient has had an uneventful postoperative course so far. He does have a history of DVT/PE. Duplex does not show any DVT however CTA is performed given patient's shortness of breath and history and he is found to have bilateral PEs. His troponin is normal. Patient is ambulated in the emergency room and is hypoxic. He will require admission for his hypoxia. He started on Lovenox. He is hemodynamically stable and does not have findings concerning for heart strain. I do not think TPA or more extreme intervention is indicated at this time. I did discuss the case with his surgeon who is aware of patient's complication and need for anticoagulation despite his postop status. <Antonella Bonds - Last Filed: 08/13/19 00:05> ED Disposition <Eloy Hunter - Last Filed: 08/01/19 11:06> <Antonella Bonds - Last Filed: 08/13/19 00:05> - Plan for ED Patient: Disposition: Acute Care Hospital [facility] Diagnosis: Bilateral pulmonary embolism, Status post left knee replacement, Hypoxia, Prostate CA, Anxiety disorder, COPD (chronic obstructive pulmonary disease), Bicuspid aortic valve
[2019-08-01 09:51] LABS: Absolute Neutrophil Count 5.4 X10^3/uL (2.0-7.7); Basophil# 0.03 X10^3/uL; Basophil% 0.4 % (0-1); Eosinophil# 0.07 X10^3/uL; Hematocrit 36.1 % (40-54); Hemoglobin 11.6 g/dL (13.0-16.5); Lymphocyte % 12.4 % (19-41); Mean Corp Hgb Conc 32.1 g/dL (32-36); Mean Corpuscular Hgb 30.8 pg (27.0-32.0); Mean Corpuscular Volume 95.8 fL (80-94); Mean Platelet Vol. 8.9 fl (6.2-12.0); Monocyte# 0.78 X10^3/uL; Monocyte% 10.8 % (0-10); NRBC Flagged by Analyzer 0 % (0-5); Neutrophil # 5.41 X10^3/uL (2.7-7.7); Neutrophil % 74.7 % (47-70); Platelet Count 318 K/mm3 (150-450); RBC Distribution Width CV 12.6 % (11.6-14.6); RBC Distribution Width SD 44.1 fl (35.1-43.9); Red Blood Count 3.77 M/mm3 (4.6-6.2); White Blood Count 7.2 K/mm3 (4.4-11.0)
--- NOTE | 2019-08-01 09:55 | ED.RN ---
PT REQUESTING SOMETHING TO HELP HIM BEFORE CT SCAN COMPLETE
[2019-08-01] MEDS: LORazepam 2 MG/ML Syringe 1 MG IV (10:03)
[2019-08-01 10:04] LABS: Anion Gap 6 (5-15); BUN 17 mg/dL (7-18); BUN/Creat Ratio 17.4 RATIO (10-20); Calcium,Total 9.3 mg/dL (8.5-10.1); Chloride 105 mmol/L (98-107); Creatinine, Serum 0.98 mg/dL (0.70-1.30); EST Glomerular Filtration Rate 82 mL/min (>60); Est Glom Filt Rate - Afr Amer 99 mL/min (>60); Estimated Creatinine Clearance 84.93 ml/min; Glucose 104 mg/dL (74-106); Potassium 4.4 mmol/L (3.5-5.1); Sodium Level 137 mmol/L (136-145)
--- NOTE | 2019-08-01 11:02 | NURSING ---
DR JYOTI FARMER
--- NOTE | 2019-08-01 11:07 | NURSING ---
MED SURG KITTOE BILATERAL PE, AMBULATORY HYPOXIA
--- NOTE | 2019-08-01 11:09 | HP.PCM_ITS ---
Problem List (1) Bilateral pulmonary embolism Status: Acute (2) Hypoxia Status: Acute (3) Prostate CA Status: Chronic (4) Status post left knee replacement Status: Chronic (5) Anxiety disorder Status: Chronic (6) Bicuspid aortic valve Status: Chronic (7) COPD (chronic obstructive pulmonary disease) Status: Chronic History of Present Illness Date of Admission: 08/01/19 Chief Complaint: Shortness of breath The patient is a 63 year old M with past medical history significant for previous history of unprovoked surgery, left total knee arthroplasty performed on 07/28/2019 discharged on aspirin 325 mg p.o. twice daily who developed sudden shortness of breath on the night prior to his admission. Patient also did notice increasing swelling in his left lower extremity. In view of the persistent nature of his symptoms he presented to the emergency department. On further questioning patient denied any fever denied any chills. Imaging studies obtained in the ED demonstrated Pulmonary emboli in the right interlobar artery extending into the right lower lobe pulmonary arterial branches as well as multiple pulmonary emboli in left lower lobe pulmonary arterial branches. Patient was started on systemic anticoagulation admitted to regular nursing floor for further management Past Medical History Past Medical History (Chronic Problems): Chronic Problems Status post left knee replacement (Chronic) Prostate CA (Chronic) Bicuspid aortic valve (Chronic) Anxiety disorder (Chronic) COPD (chronic obstructive pulmonary disease) (Chronic) Allergies hydrocodone bitartrate [From Vicodin] Adverse Reaction (Verified 08/01/19 09:11) Itching Home Medications: Ambulatory Orders Medication Instructions Recorded Cholecalciferol (VIT D3) [Vitamin 1,000 unit PO BID 05/27/15 D3] Citalopram [Celexa] 20 mg PO DAILY 05/27/15 Docusate Sodium [Colace] 100 mg PO DAILY PRN 05/27/15 Simvastatin [Zocor] 20 mg PO QHS 05/27/15 Celecoxib [Celebrex] 200 mg PO QHS 07/22/19 Cetirizine HCl [Zyrtec] 10 mg PO DAILY 07/22/19 DiphenhydrAMINE [Benadryl] 25 mg PO DAILY PRN 07/22/19 Losartan Potassium 50 mg PO DAILY 07/22/19 Omeprazole 40 mg PO DAILY 07/22/19 Acetaminophen [Tylenol] 1,000 mg PO Q8 30 Days #100 tab 07/29/19 Aspirin 325 mg PO BIDCM 30 Days #60 tab 07/29/19 Oxycodone [Oxyir] 5 - 10 mg PO Q6H PRN PRN 7 Days 07/29/19 #56 tab Senna/Docusate Sodium [Senokot-S] 2 tab PO BID #10 tab 07/29/19 Surgical History: - - 3 back surgeries Prostate surgery 2 knee surgeries 2 shoulder surgeries Lives: With Family Smoking Status: Former smoker Alcohol: Occasional Drugs: None Review of Systems Constitutional: Denies: Anorexia, Chills, Fever, Night Sweats, Weight Change HEENT: Denies: Head Aches, Sinus Congestion, Sinus Drainage Cardiovascular: Denies: Orthopnea, Palpitations, Paroxysmal Noc. Dyspnea Respiratory: Reports: Shortness of Breath Gastrointestinal: Denies: Abdominal Pain, Hematemesis, Hematochezia, Nausea, Melena, Vomiting Genitourinary: Denies: Dysuria, Frequency, Hematuria, Urgency Musculoskeletal: Denies: Joint Pain, Joint Tenderness Skin: Denies: Rash Neurological: Denies: Focal weakness, Numbness, Tingling Psychiatric: Denies: Homicidal Ideations, Suicidal Ideations Hematologic/ Lymphatic: Denies: Easy Bruising, Easy Bleeding VTE Information - Inpt Only VTE Present on Admission: Yes Patient Problems: Active and Suspected Problems Bilateral pulmonary embolism (Acute) Hypoxia (Acute) Objective: GENERAL: cooperative HEENT: Atraumatic; EYES; Anicteric, Normal Conjunctiva NECK; supple, normal thyroid, RESPIRATORY: Diminished to auscultation CARDIOVASCULAR: Regular S1 S2, GI: soft, normoactive bowel sounds, : No Renal angle tenderness; EXTREMITIES: No edema, no clubbing, MUSCULOSKELETAL: Left knee incision clean dry and intact but thigh and cough swollen NEURO: Awake; no lateralizing signs. SKIN: No Rash PSYCH; Flat affect - Physical Exam Vitals/I&O's: Vital Signs Temp Pulse Resp BP Pulse Ox 97.9 F 63 12 132/77 H 99 08/01/19 09:11 08/01/19 10:04 08/01/19 10:04 08/01/19 10:04 08/01/19 10:04 Oxygen Delivery Method Room Air Weight: 101.605 kg Body Mass Index (BMI) 29.5 Intake and Output for Last 24 Hours 07/30/19 07/31/19 08/01/19 23:59 23:59 23:59 Intake Total 500 / 500 Balance 500 / 500 Laboratory Results 08/01/19 09:35: WBC 7.2, RBC 3.77 L, Hgb 11.6 L, Hct 36.1 L, MCV 95.8 H, MCH 30.8, MCHC 32.1, RDW Std Deviation 44.1 H, RDW Coeff of Doug 12.6, Plt Count 318, MPV 8.9, Immature Gran % (Auto) 0.700, Neut % (Auto) 74.7 H, Lymph % (Auto) 12.4 L, Russell % (Auto) 10.8 H, Eos % (Auto) 1.0, Baso % (Auto) 0.4, Absolute Neuts (auto) 5.4, Absolute Lymphs (auto) 0.90, Nucleated RBC % 0 08/01/19 09:35: Sodium 137, Potassium 4.4, Chloride 105, Carbon Dioxide 26.0, Anion Gap 6, BUN 17, Creatinine 0.98, Estim Creat Clear Calc 84.93, Est GFR (MDRD) Af Amer 99, Est GFR (MDRD) Non-Af 82, BUN/Creatinine Ratio 17.4, Glucose 104, Calcium 9.3, Troponin I < 0.015 Assessment/Plan All Active Problems Bilateral pulmonary embolism (Acute) Hypoxia (Acute) Patient is a 63-year-old gentleman presenting 4 days after left total knee replacement with left knee swelling and shortness of breath PE demonstrated 1. Pulmonary embolism ?CTA demonstrated Pulmonary emboli in the right interlobar artery extending into the right lower lobe pulmonary arterial branches as well as multiple pulmonary emboli in left lower lobe pulmonary arterial branches do suspect patient with underlying predisposition to forming blood clot given his history of previous unprovoked blood clots. Admitted to monitored bed. Started on systemic anticoagulation. Patient was also placed on supplemental oxygen as well as aerosol treatment as needed. Ordered a 2D echo to assess for right ventricular and pulmonary pressures 2. Status post left total knee arthroplasty ?On 07/28/[address] mims 3. Hypertension - Blood pressure controlled, home medications continued with dose adjustment as needed 4. Depression ?Patient on SSRI Active Medications Acetaminophen (Tylenol) 1,000 mg PO Q8 DAMIEN Al Hydroxide/Mg Hydroxide (Mylanta Ii) 30 ml PO Q6H PRN PRN PRN Reason: Gastric Burning Albuterol Sulfate (Ventolin Aerosols) 2.5 mg INHALATION Q2H PRN PRN PRN Reason: SOB/Wheezing Celecoxib (Celebrex) 200 mg PO QHS [facility] Cholecalciferol (Vitamin D (25mcg)) 1,000 unit PO BID [facility] Citalopram Hydrobromide (Celexa) 20 mg PO DAILY [facility] Dextrose (D50w Syringe) 0 gm IV X1 PRN; Protocol PRN Reason: Hypoglycemia Diphenhydramine HCl (Benadryl) 25 mg PO DAILY PRN PRN Reason: ITCHING Docusate Sodium (Colace) 100 mg PO DAILY PRN PRN Reason: Constipation Enoxaparin Sodium (Lovenox) 100 mg 1 mg/kg (100 mg) SC Q12 [facility] Last Admin: 08/01/19 11:32 Dose: 100 mg Documented by: Glucagon () 1 mg IM .X1 PRN PRN Reason: Hypoglycemia Guaifenesin (Robitussin) 20 ml PO Q4H PRN PRN PRN Reason: COUGH Losartan Potassium (Cozaar) 50 mg PO DAILY [facility] Melatonin (Melatonin) 3 mg PO QHS PRN PRN PRN Reason: INSOMNIA Non-Formulary Medication (Cetirizine Hcl) 10 mg PO DAILY [facility] Non-Formulary Medication (Simvastatin) 20 mg PO QHS [facility] Non-Formulary Medication (Omeprazole) 40 mg PO DAILY [facility] Ondansetron HCl (Zofran) 4 mg IV Q8H PRN PRN PRN Reason: NAUSEA/VOMITING Oxycodone HCl (Oxyir) 5 - 10 mg PO Q6H PRN PRN PRN Reason: Pain Score 4-10/10 Senna/Docusate Sodium (Senokot-S, Ashley-Colace) tablet PO BID [facility] Clinical Impression(s) from Imaging Studies Chest CTA 08/01/19 09:27 IMPRESSION: Pulmonary emboli in the right interlobar artery extending into the right lower lobe pulmonary arterial branches as well as multiple pulmonary emboli in left lower lobe pulmonary arterial branches. Electronically Signed: Vasquez Smith, at 10:45 EDT , Service support , Inpatient E&M: [id number] Init Hosp L3
--- NOTE | 2019-08-01 11:21 | ECHOD_ITS ---
Reason For Study: Emboli Procedure This was a 2D Doppler, Color Flow transthoracic echocardiogram. Exam performed portable in patient room. Left Ventricle Normal LV size. Left ventricular systolic function is normal. The estimated ejection fraction is 55 %. Stage 1 diastolic dysfunction. No regional wall motion abnormalities noted. Right Ventricle Normal RV size. Normal systolic function. Atria The left atrium is mildly enlarged. Normal right atrium. Mitral Valve Bileaflet diffuse mitral valve thickening. Mild (1+) eccentric mitral valve insufficiency. Tricuspid Valve Normal tricuspid valve. Mild (1+) tricuspid valve insufficiency. Pulmonary artery systolic pressure is 35 mmHg. Aortic Valve Mild focal aortic valve calcification. Functionally bicuspid AV. Mild (1+) aortic valve insufficiency. Pulmonic Valve Normal pulmonic valve. Great Vessels Normal aortic root. The pulmonary artery is normal size. Normal inferior vena cava. Pericardium/Pleural No pericardial effusion. MMode/2D Measurements & Calculations LVIDd: 4.7 cm IVSd: 1.0 cm LA dimension: 4.7 cm LVIDs: 3.0 cm LVPWd: 1.1 cm RVDd: 3.7 cm FS: 35.1 % LAV(MOD-bp): 70.8 ml LA A4 area: 21.7 cm2 RA A4 area: 15.7 cm2 LAV(MOD-bp) Indexed: 31.3 ml/m2 LAV(MOD-sp2): 69.4 ml LAV(MOD-sp4): 63.7 ml Time Measurements MV dec time: 0.27 sec Doppler Measurements & Calculations MV E max skyler: 88.3 cm/sec Lat Peak E' Skyler: 10.6 cm/sec Med Peak E' Skyler: 8.3 cm/sec MV A max skyler: 95.5 cm/sec E/E' lat: 8.3 E/E' med: 10.6 MV E/A: 0.92 MV V2 max: 116.5 cm/sec MV P1/2t max skyler: 116.5 cm/sec Ao V2 max: 139.3 cm/sec MV max P.4 mmHg MV P1/2t: 86.0 msec Ao max P.8 mmHg MV V2 mean: 59.8 cm/sec MV dec slope: 396.7 cm/sec2 MV mean P.7 mmHg MVA(P1/2t): 2.6 cm2 MV V2 VTI: 38.4 cm AI max skyler: 377.5 cm/sec LV V1 max: 89.0 cm/sec MR max skyler: 517.3 cm/sec AI max P.0 mmHg LV V1 max P.2 mmHg MR max P.0 mmHg MR mean skyler: 388.9 cm/sec AI dec slope: 173.1 cm/sec2 MR mean P.7 mmHg AI P1/2t: 638.8 msec MR VTI: 177.0 cm PA V2 max: 92.5 cm/sec TR max skyler: 280.6 cm/sec PI dec slope: 137.7 cm/sec2 TR max P.5 mmHg Interpretation Summary Normal LV size. Left ventricular systolic function is normal. The estimated ejection fraction is 55 %. Stage 1 diastolic dysfunction. Mild (1+) eccentric mitral valve insufficiency. Pulmonary artery systolic pressure is 35 mmHg. Mild (1+) aortic valve insufficiency. Functionally bicuspid AV Ordering Physician: Syd Pascual Referring Physician: Lyudmila Brewer M.D. Performed By: Nguyễn Carter RCS
[2019-08-01] MEDS: Enoxaparin 100 MG/ML Syringe SC ×2 (11:32→21:35)
[2019-08-01] MEDS: oxyCODONE 5 MG Tablet PO ×2 (12:18→18:24)
[2019-08-01] MEDS: Docusate Sodium 100 MG Capsule PO (12:18)
[2019-08-01] MEDS: Acetaminophen 500 MG Tablet 1000 MG PO ×2 (13:49→21:39)
[2019-08-01] MEDS: Polyethylene Glycol 3350 17 GM PACKET PO ×2 (13:50→21:37)
--- NOTE | 2019-08-01 13:50 | CPS ---
Pt declined I.S. since he has one from last week.
--- NOTE | 2019-08-01 18:15 | NURSING ---
This RN called and updated the pt's .
--- NOTE | 2019-08-01 18:37 | NURSING ---
Pt became very agitated this evening due to garfield hose not being put on until later and delay in finding ice pack. Garfield hose were brought in room and offered to pt as soon as this RN obtained order from MD and pt did not want put on that time. Ice pack brought in by MANAGER BANQUET, pt unhappy that it was only one ice pack and that there was a delay in obtaining another ice pack due to them not being on floor. This RN and charge master analyst apologized for delay in Garfield hose. Pain meds offered to pt as soon as available to given per APR. Pt agitated that walker was not brought in room until this time but denies needing to go to the rest room or use it at this time.
[2019-08-01] MEDS: Celecoxib 200 MG Capsule PO (21:35)
[2019-08-01] MEDS: Atorvastatin Calcium 10 MG Tablet PO (21:36)
[2019-08-01] MEDS: Senna/Docusate Sodium 1 Tablet 2 TABLET PO (21:37)
[2019-08-01] MEDS: morphine SR 15 MG Tablet PO (21:38)
[2019-08-02 01:51] VITALS: O2SAT 97
[2019-08-02 02:59] VITALS: PULSE 78
[2019-08-02 04:10] VITALS: BP 142/71; PULSE 61; RESP 18; TEMP 36.7; O2SAT 97
[2019-08-02] MEDS: Acetaminophen 500 MG Tablet 1000 MG PO (05:37)
[2019-08-02] MEDS: morphine SR 15 MG Tablet PO (05:37)
[2019-08-02 06:38] LABS: Absolute Lymphocyte Count 0.99 X10^3/uL (0.83-4.51); Absolute Neutrophil Count 3.6 X10^3/uL (2.0-7.7); Basophil# 0.04 X10^3/uL; Basophil% 0.7 % (0-1); Eosinophil# 0.14 X10^3/uL; Eosinophils% 2.6 % (0-5); Hematocrit 34.4 % (40-54); Hemoglobin 11.4 g/dL (13.0-16.5); Lymphocyte # 0.99 X10^3/ul (4.0); Lymphocyte % 18.2 % (19-41); Mean Corp Hgb Conc 33.1 g/dL (32-36); Mean Corpuscular Hgb 30.9 pg (27.0-32.0); Mean Corpuscular Volume 93.2 fL (80-94); Mean Platelet Vol. 9.3 fl (6.2-12.0); Monocyte# 0.66 X10^3/uL; Monocyte% 12.1 % (0-10); NRBC Flagged by Analyzer 0 % (0-5); Platelet Count 326 K/mm3 (150-450); RBC Distribution Width CV 12.3 % (11.6-14.6); RBC Distribution Width SD 42.3 fl (35.1-43.9); Red Blood Count 3.69 M/mm3 (4.6-6.2); White Blood Count 5.5 K/mm3 (4.4-11.0)
[2019-08-02 06:59] LABS: Anion Gap 8 (5-15); BUN 17 mg/dL (7-18); BUN/Creat Ratio 18.1 RATIO (10-20); Calcium,Total 9.1 mg/dL (8.5-10.1); Chloride 103 mmol/L (98-107); Creatinine, Serum 0.94 mg/dL (0.70-1.30); EST Glomerular Filtration Rate 86 mL/min (>60); Est Glom Filt Rate - Afr Amer 104 mL/min (>60); Estimated Creatinine Clearance 88.54 ml/min; Glucose 98 mg/dL (74-106); Magnesium 2.3 mg/dL (1.6-2.6); Sodium Level 136 mmol/L (136-145)
[2019-08-02 08:15] VITALS: PULSE 70
--- NOTE | 2019-08-02 09:17 | PCM.DC ---
- Discharge Diagnoses Current Active Problems: Current Active and Chronic Problems Bilateral pulmonary embolism (Acute) Status post left knee replacement (Chronic) Hypoxia (Acute) Prostate CA (Chronic) Bicuspid aortic valve (Chronic) Anxiety disorder (Chronic) COPD (chronic obstructive pulmonary disease) (Chronic) You will use the following diet at home:: No restrictions Discharge Activity: Return to Normal Activity Allergies/Adverse Reactions: Allergies hydrocodone bitartrate [From Vicodin] Adverse Reaction (Verified 08/01/19 09:11) Itching Medications to take at Discharge Cholecalciferol (VIT D3) [Vitamin D3] 1,000 unit PO BID 05/27/15 Citalopram [Celexa] 20 mg PO DAILY 05/27/15 Docusate Sodium [Colace] 100 mg PO DAILY PRN 05/27/15 Simvastatin [Zocor] 20 mg PO QHS 05/27/15 Celecoxib [Celebrex] 200 mg PO QHS 07/22/19 Cetirizine HCl [Zyrtec] 10 mg PO DAILY 07/22/19 DiphenhydrAMINE [Benadryl] 25 mg PO DAILY PRN 07/22/19 Losartan Potassium 50 mg PO DAILY 07/22/19 Omeprazole 40 mg PO DAILY 07/22/19 Acetaminophen [Tylenol] 1,000 mg PO Q8 30 Days #100 tab 07/29/19 Oxycodone [Oxyir] 5 - 10 mg PO Q6H PRN PRN 7 Days #56 tab 07/29/19 Senna/Docusate Sodium [Senokot-S] 2 tab PO BID #10 tab 07/29/19 Morphine Sulfate [Morphine Sulfate ER] 15 mg PO Q8H 08/01/19 Apixaban [Eliquis] 5 mg PO BID #120 tab 08/02/19 The following prescriptions were given: Apixaban [Eliquis] 5 mg PO BID #120 tab Transmission Status: Pending to [facility] Primary Care Physician: Lyudmila Brewer DO [Primary Care Provider] - Please follow up with your Primary Care Physician in: 5 to 7 days for subsequent care Test Results: Test results from this visit will be discussed in further detail at your follow-up appointment, if applicable. Please Follow Up With: Chance Steve DO When: As previously scheduled Proposed Discharge Date: 08/02/19
--- NOTE | 2019-08-02 09:21 | PCM.DC.SUM ---
Discharge Date and Diagnosis - Problem List Patient Problems: Active and Suspected Problems Bilateral pulmonary embolism (Acute) Hypoxia (Acute) Date of Admission: 08/01/19 Date of Discharge: 08/02/19 - Primary Discharge Diagnosis Acute Problems: Active Problems Bilateral pulmonary embolism (Acute) Hypoxia (Acute) - Secondary Discharge Diagnosis Chronic Problems: Chronic Problems Status post left knee replacement (Chronic) Prostate CA (Chronic) Bicuspid aortic valve (Chronic) Anxiety disorder (Chronic) COPD (chronic obstructive pulmonary disease) (Chronic) Hospital Course and Treatment Imaging Results: Clinical Impression(s) from Imaging Studies Chest CTA 08/01/19 09:27 IMPRESSION: Pulmonary emboli in the right interlobar artery extending into the right lower lobe pulmonary arterial branches as well as multiple pulmonary emboli in left lower lobe pulmonary arterial branches. Electronically Signed: Vasquez Luis, at 10:45 EDT , Service support , 2D echo Normal LV size. Left ventricular systolic function is normal. The estimated ejection fraction is 55 %. Stage 1 diastolic dysfunction. Mild (1+) eccentric mitral valve insufficiency. Pulmonary artery systolic pressure is 35 mmHg. Mild (1+) aortic valve insufficiency. Functionally bicuspid AV Operations: None Summary of Care Provided: Patient is a 63-year-old gentleman presenting 4 days after left total knee replacement with left knee swelling and shortness of breath PE demonstrated 1. Pulmonary embolism ?CTA demonstrated Pulmonary emboli in the right interlobar artery extending into the right lower lobe pulmonary arterial branches as well as multiple pulmonary emboli in left lower lobe pulmonary arterial branches do suspect patient with underlying predisposition to forming blood clot given his history of previous unprovoked blood clots. Admitted to monitored bed. Started on systemic anticoagulation. Patient was also placed on supplemental oxygen as well as aerosol treatment as needed. Ordered a 2D echo to assess for right ventricular and pulmonary pressures Results as below Normal LV size. Left ventricular systolic function is normal. The estimated ejection fraction is 55 %. Stage 1 diastolic dysfunction. Mild (1+) eccentric mitral valve insufficiency. Pulmonary artery systolic pressure is 35 mmHg. Mild (1+) aortic valve insufficiency. Functionally bicuspid AV Plan was for patient to have stay for at least 2 midnight, however he requested to be discharged home at day after his admission. It was felt patient was stable enough to be discharged home. Prescription was written for Eliquis 10 mg p.o. twice daily for 7 days and 5 mg p.o. twice daily subsequently. Patient was instructed to follow-up with primary care physician for subsequent monitoring of his anticoagulation therapy. He was also instructed to follow-up with his orthopedic surgeon as previously scheduled 2. Status post left total knee arthroplasty ?On 07/28/[address] Steve 3. Hypertension - Blood pressure controlled, home medications continued with dose adjustment as needed 4. Depression ?Patient on SSRI Patient Problems: Active and Suspected Problems Bilateral pulmonary embolism (Acute) Hypoxia (Acute) - Physical Exam Vitals/I&O's: Vital Signs Temp Pulse Resp BP Pulse Ox 98.1 F 70 18 142/71 H 97 08/02/19 04:10 08/02/19 08:15 08/02/19 04:10 08/02/19 04:10 08/02/19 04:10 Oxygen Flow Rate (L/min) 2 Oxygen Delivery Method Room Air Weight: 105.6 kg Body Mass Index (BMI) 30.7 Intake and Output for Last 24 Hours 07/31/19 08/01/19 08/02/19 23:59 23:59 23:59 Intake Total 800 / 1320 920 / 920 Output Total 400 / 850 1200 / 1200 Balance 400 / 470 -280 / -280 General: Alert HEENT: Atraumatic Neck: Supple Lungs: Diminished Cardiovascular: Regular rate, Regular Rhythm Psych/Mental Status: Normal Affect Laboratory Results 08/01/19 09:35: WBC 7.2, RBC 3.77 L, Hgb 11.6 L, Hct 36.1 L, MCV 95.8 H, MCH 30.8, MCHC 32.1, RDW Std Deviation 44.1 H, RDW Coeff of Doug 12.6, Plt Count 318, MPV 8.9, Immature Gran % (Auto) 0.700, Neut % (Auto) 74.7 H, Lymph % (Auto) 12.4 L, Mcminn % (Auto) 10.8 H, Eos % (Auto) 1.0, Baso % (Auto) 0.4, Absolute Neuts (auto) 5.4, Absolute Lymphs (auto) 0.90, Nucleated RBC % 0 08/01/19 09:35: Sodium 137, Potassium 4.4, Chloride 105, Carbon Dioxide 26.0, Anion Gap 6, BUN 17, Creatinine 0.98, Estim Creat Clear Calc 84.93, Est GFR (MDRD) Af Amer 99, Est GFR (MDRD) Non-Af 82, BUN/Creatinine Ratio 17.4, Glucose 104, Calcium 9.3, Troponin I < 0.015 08/02/19 05:45: Sodium 136, Potassium 4.0, Chloride 103, Carbon Dioxide 25.0, Anion Gap 8, BUN 17, Creatinine 0.94, Estim Creat Clear Calc 88.54, Est GFR (MDRD) Af Amer 104, Est GFR (MDRD) Non-Af 86, BUN/Creatinine Ratio 18.1, Glucose 98, Calcium 9.1, Magnesium 2.3 08/02/19 05:45: WBC 5.5, RBC 3.69 L, Hgb 11.4 L, Hct 34.4 L, MCV 93.2, MCH 30.9, MCHC 33.1, RDW Std Deviation 42.3, RDW Coeff of Doug 12.3, Plt Count 326, MPV 9.3, Immature Gran % (Auto) 0.400, Neut % (Auto) 66.0, Lymph % (Auto) 18.2 L, Mcminn % (Auto) 12.1 H, Eos % (Auto) 2.6, Baso % (Auto) 0.7, Absolute Neuts (auto) 3.6, Absolute Lymphs (auto) 0.99, Nucleated RBC % 0 Current Medications Acetaminophen (Tylenol) 1,000 mg PO Q8 [facility] Last Admin: 08/02/19 05:37 Dose: 1,000 mg Documented by: Al Hydroxide/Mg Hydroxide (Mylanta Ii) 30 ml PO Q6H PRN PRN PRN Reason: Gastric Burning Albuterol Sulfate (Ventolin Aerosols) 2.5 mg INHALATION Q2H PRN PRN PRN Reason: SOB/Wheezing Atorvastatin Calcium (Lipitor) 10 mg PO QHS [facility] Last Admin: 08/01/19 21:36 Dose: 10 mg Documented by: Celecoxib (Celebrex) 200 mg PO QHS [facility] Last Admin: 08/01/19 21:35 Dose: 200 mg Documented by: Cholecalciferol (Vitamin D (25mcg)) 1,000 unit PO BID [facility] Last Admin: 08/01/19 21:39 Dose: 1,000 unit Documented by: Citalopram Hydrobromide (Celexa) 20 mg PO DAILY [facility] Dextrose (D50w Syringe) 0 gm IV X1 PRN; Protocol PRN Reason: Hypoglycemia Diphenhydramine HCl (Benadryl) 25 mg PO DAILY PRN PRN Reason: ITCHING Docusate Sodium (Colace) 100 mg PO DAILY PRN PRN Reason: Constipation Last Admin: 08/01/19 12:18 Dose: 100 mg Documented by: Enoxaparin Sodium (Lovenox) 100 mg 1 mg/kg (100 mg) SC Q12 [facility] Last Admin: 08/01/19 21:35 Dose: 100 mg Documented by: Glucagon () 1 mg IM .X1 PRN PRN Reason: Hypoglycemia Guaifenesin (Robitussin) 20 ml PO Q4H PRN PRN PRN Reason: COUGH Sodium Chloride () 500 mls @ 15 mls/hr IV PRN PRN PRN Reason: Blood Transfusion Sodium Chloride () 250 mls @ 15 mls/hr IV .[id number] PRN PRN Reason: Saline Flush Sodium Chloride () 250 mls @ 15 mls/hr IV .[id number] PRN PRN Reason: Additional IVPB Infusion Loratadine (Claritin) 10 mg PO DAILY [facility] Losartan Potassium (Cozaar) 50 mg PO DAILY [facility] Melatonin (Melatonin) 3 mg PO QHS PRN PRN PRN Reason: INSOMNIA Morphine Sulfate (Ms Contin) 15 mg PO Q8 [facility] Last Admin: 08/02/19 05:37 Dose: 15 mg Documented by: Ondansetron HCl (Zofran) 4 mg IV Q8H PRN PRN PRN Reason: NAUSEA/VOMITING Oxycodone HCl (Oxyir) 5 - 10 mg PO Q6H PRN PRN PRN Reason: Pain Score 4-10/10 Last Admin: 08/01/19 18:24 Dose: 10 mg Documented by: Pantoprazole Sodium (Protonix) 40 mg PO DAILY [facility] Polyethylene Glycol (Miralax) 17 gm PO BID [facility] Last Admin: 08/01/19 21:37 Dose: 17 gm Documented by: Senna/Docusate Sodium (Senokot-S, Ashley-Colace) 2 tablet PO BID [facility] Last Admin: 08/01/19 21:37 Dose: 2 tablet Documented by: Sodium Chloride () 10 - 40 ml IV UD PRN PRN Reason: SALINE FLUSH Discharge Diet: No Restrictions Discharge Activity: Return to Normal Activity Home Medications: Medications to take at Discharge Cholecalciferol (VIT D3) [Vitamin D3] 1,000 unit PO BID 05/27/15 Citalopram [Celexa] 20 mg PO DAILY 05/27/15 Docusate Sodium [Colace] 100 mg PO DAILY PRN 05/27/15 Simvastatin [Zocor] 20 mg PO QHS 05/27/15 Celecoxib [Celebrex] 200 mg PO QHS 07/22/19 Cetirizine HCl [Zyrtec] 10 mg PO DAILY 07/22/19 DiphenhydrAMINE [Benadryl] 25 mg PO DAILY PRN 07/22/19 Losartan Potassium 50 mg PO DAILY 07/22/19 Omeprazole 40 mg PO DAILY 07/22/19 Acetaminophen [Tylenol] 1,000 mg PO Q8 30 Days #100 tab 07/29/19 Oxycodone [Oxyir] 5 - 10 mg PO Q6H PRN PRN 7 Days #56 tab 07/29/19 Senna/Docusate Sodium [Senokot-S] 2 tab PO BID #10 tab 07/29/19 Morphine Sulfate [Morphine Sulfate ER] 15 mg PO Q8H 08/01/19 Apixaban [Eliquis] 5 mg PO BID #120 tab 08/02/19 Following Prescrptions Were Given to Patient: Apixaban [Eliquis] 5 mg PO BID #120 tab Transmission Status: Received by [facility] Primary Care Physician: Lyudmila Brewer DO [Primary Care Provider] - Please follow up with your Primary Care Physician in: 5 to 7 days for subsequent care Please Follow Up With: Chance Steve DO When: As previously scheduled Disposition: Home Minutes spent on discharge:: 35 Medical Necessity - Tobacco Use Smoking Status: Former smoker Meaningful Use Info Meaningful Use Diagnoses (Choose all that apply): VTE - VTE Anticoag overlap given w/in hospital stay or rx'd at nd?: No Pt receive overlap for 5 days?: No Reason overlap not ordered, prescribed, or given for 5 days: Treatment Not Indicated Inpatient E&M: [id number] [facility]
[2019-08-02 09:55] VITALS: PULSE 63
--- NOTE | 2019-08-02 10:00 | CASEMGMT ---
CARMEN NAJERA Assessment: To room to meet w/pt. Introduced self and role at [facility]. Patient lying in bed, alert and oriented. Patient willing to participate in assessment but gave very short/abrupt answers. Pt states he just wants to go home. Pt was just discharged home w/OP therapy @ [facility] from [facility] 07/28 after Lt knee arthroplasty. See assessment completed 07/28 by CARMEN Mcclain CM. Pt re-admitted 07/31 w/Bilateral PE's. Discussed the following information with pt at this time. Preferred Pharmacy: [facility]. Prescription Benefit: yes. Pt will be going home on Eliquis for PE. Call placed to [facility] retail pharmacy and 30-day savings card has been applied. 1st 30 days will be free. Per pharmacist, pt's insurance is not contracted w/[facility] and therefore they are not able to determine pt's cost of refills after the 30-days. Pt made aware another pharmacy who is contracted with his insurance may be cheaper for him for refills. Advised to contact his insurance company to inquire about cost of refills. Pt was made aware of this and made aware that refills may have a high [id number] cost. Pt states, I'm not concerned with that. That won't be a problem. Pt denies having any concerns w/going home @ discharge and denies having any needs at this time. Olga CARDONA RN, CM
[2019-08-02 10:08] VITALS: BP 113/74; PULSE 68; RESP 16; TEMP 37; O2SAT 98
[2019-08-02] MEDS: Senna/Docusate Sodium 1 Tablet 2 TABLET PO (10:14)
[2019-08-02] MEDS: Enoxaparin 100 MG/ML Syringe SC (10:14)
[2019-08-02] MEDS: Loratadine 10 MG Tablet PO (10:15)
[2019-08-02] MEDS: Citalopram 20 MG Tablet PO (10:16)
[2019-08-02] MEDS: Pantoprazole Sodium 40 MG Tablet PO (10:16)
[2019-08-02] MEDS: Losartan Potassium 50 MG Tablet PO (10:17)
[2019-08-02] MEDS: oxyCODONE 5 MG Tablet PO (10:21)
== END 2019-08-02 10:35 | disposition home or self-care (01) | DRG 176 ==
LOC: ED 11:09 → PCU 11:16
PROVIDERS: Admitting Provider Internal Medicine; Emergency Provider Physician Assistant Medical; PCP Internal Medicine; Visit Provider Internal Medicine
DX: I26.99 Other pulmonary embolism without acute cor pulmonale (principal); Q23.1 Congenital insufficiency of aortic valve; F41.9 Anxiety disorder, unspecified; J44.9 Chronic obstructive pulmonary disease, unspecified; Z96.652 Presence of left artificial knee joint; I34.0 Nonrheumatic mitral (valve) insufficiency; I10 Essential (primary) hypertension; F32.9 Major depressive disorder, single episode, unspecified; R09.02 Hypoxemia; Z80.1 Family history of malignant neoplasm of trachea, bronchus and lung; Z87.891 Personal history of nicotine dependence; Z85.46 Personal history of malignant neoplasm of prostate; Z79.899 Other long term (current) drug therapy; Z86.711 Personal history of pulmonary embolism; Z86.718 Personal history of other venous thrombosis and embolism; Z96.659 Presence of unspecified artificial knee joint
CPT/HCPCS: 36415; 71275; 73560; 80048; 80076; 82962; 83735; 84484; 85025; 85027; 85610; 85730; 87081; 87635; 88305; 88311; 93005; 93306; 93971; 96361; 96365; 96366; 96375; 97110; 97116; 97162; 97166; 97530; 99218; 99251; 99285; C1776; G2023; J7040; J7120; Q9967; A4216; G0378; G0379; G0463; J2405; U0004

== ENCOUNTER 2019-09-15 05:50 | Day surgery (SDC) | payer MEDICARE, OTHER, SELFPAY ==
[2019-08-01 11:49] VITALS: BMI 30.7
[2019-09-15 06:14] VITALS: BP 148/86; PULSE 62; RESP 16; TEMP 36.9; O2SAT 97; BMI 29.3
[2019-09-15] MEDS: Lactated Ringers 1,000 ML 100 ML IV (06:29)
--- NOTE | 2019-09-15 07:31 | PCM.OPRPT ---
Report of Operation Date of Procedure: 09/15/19 Pre-Operative Diagnosis: Post-op stiffness left knee s/p TKR Post-Operative Diagnosis: same Surgery/Procedure Performed:: PARAMJIT left knee Type of Anesthesia:: General Anesthesiologist: Sushil Rosales - Admit VTE Documentation VTE Present on Admission: No VTE Mechan Device Prophylaxis: SCD's VTE Pharm Prophylaxis ordered?: No Reason prophylaxis not ordered:: Treatment Not Indicated
[2019-09-15 07:49] VITALS: BP 110/43; BP 148/86; PULSE 62; RESP 16; TEMP 36.6; O2SAT 97
[2019-09-15 08:00] VITALS: BP 115/58; BP 148/86; PULSE 61; RESP 16; O2SAT 97
[2019-09-15] MEDS: Ketorolac 15 MG/ML Vial IV (08:02)
[2019-09-15 08:15] VITALS: BP 129/72; BP 148/86; PULSE 58; RESP 16; O2SAT 97
[2019-09-15 08:20] VITALS: BP 146/85; BP 148/86; PULSE 66; RESP 16; TEMP 36.8; O2SAT 98
[2019-09-15 09:04] VITALS: BP 148/86
== END 2019-09-15 08:58 | disposition home or self-care (01) ==
LOC: SDC 05:50 → AC 05:51
PROVIDERS: Anesthesiology; PCP Internal Medicine; Referring Provider Orthopaedic Surgery; Visit Provider Orthopaedic Surgery
PROC: (CPT 27570; principal; 2019-09-15 07:25)
DX: M25.662 Stiffness of left knee, not elsewhere classified (principal); M17.12 Unilateral primary osteoarthritis, left knee; Z96.652 Presence of left artificial knee joint; Z47.1 Aftercare following joint replacement surgery; I10 Essential (primary) hypertension; J44.9 Chronic obstructive pulmonary disease, unspecified; Z87.891 Personal history of nicotine dependence
CPT/HCPCS: 01380; 27570; 87635; G2023; J7120; U0003

== ENCOUNTER → 2019-11-04 15:07 | Outpatient (CLI) | payer MEDICARE, OTHER, SELFPAY ==
--- NOTE | 2019-11-04 15:12 | VDLE_ITS ---
Reason For Study: leg pain RIGHT LEFT GSV is normal. GSV is normal. CFV is compressible, spontaneous, phasic, CFV is compressible, spontaneous, phasic, competent and demonstrates normal competent, and demonstrates normal augmentation. augmentation. FV is compressible, spontaneous, phasic, FV is compressible, spontaneous, phasic, competent and demonstrates normal competent and demonstrates normal augmentation. augmentation. POP V is compressible, spontaneous, phasic, POP V is compressible, spontaneous, phasic, competent and demonstrates normal competent and demonstrates normal augmentation. augmentation. T/P Trunk is compressible. T/P Trunk is compressible. PTV is compressible. PTV is compressible. RT PerV is compressible. LT PerV is compressible. Procedure Exam performed in department. The exam was diagnostic. A preliminary report was called and/or faxed to Dr. Steve. Interpretation Summary Deep veins of the lower extremities are bilaterally patent and compressible segmentally. There is no evidence of deep vein thrombosis on either side. Valvular competence appears intact within the proximal deep venous systems bilaterally. The great saphenous veins appear bilaterally patent and compressible segmentally. Ordering Physician: Chance Steve Performed By: Rajiv Smith RVT and Student
== END ==
PROVIDERS: PCP Internal Medicine; Referring Provider Orthopaedic Surgery; Visit Provider Orthopaedic Surgery
DX: M79.605 Pain in left leg (principal); M79.604 Pain in right leg
CPT/HCPCS: 93970

== ENCOUNTER → 2020-04-01 07:57 | Outpatient (CLI) | payer MEDICARE, OTHER, SELFPAY ==
--- NOTE | 2020-04-01 08:00 | US_ITS ---
STUDY: ABDOMINAL ULTRASOUND - RIGHT UPPER QUADRANT REASON FOR VISIT: Male, 64 years old elevated lfts TECHNIQUE: Ultrasound evaluation of the right upper quadrant was performed with real-time and static morris-scale imaging. TECHNICAL QUALITY: Adequate. COMPARISON: None. FINDINGS: Liver: The liver measures 17.7 cm. There is increased echogenicity consistent with fatty infiltration. The bile ducts are within normal limits. There is hepatic color flow. The direction of portal flow is hepatopetal. There is no demonstrated mass lesion. Gallbladder: Normal distended gallbladder. The gallbladder wall measures 2.0 mm. There is a negative sonographic Alegria''s sign. There is no pericholecystic fluid. There are no gallstones. Common Bile Duct (C.B.D.): The common bile duct measures 7.1 mm. Pancreas: Normal size of the head, body and tail of the pancreas. There is normal echogenicity of the pancreas. There is no demonstrated pancreatic mass or cyst. Right Kidney: Normal size of the right kidney. The right kidney measures 12 cm x 5.7 cm x 5 cm. Normal renal cortex. The right cortex measures 1.6 cm. There is no demonstrated renal mass or cyst. There is no right hydronephrosis. US/Liver IMPRESSION: Fatty infiltration of the liver. Electronically Signed: Vasquez Smith MD at 9:13 EST , Service support ,
== END ==
PROVIDERS: PCP Internal Medicine; Referring Provider Internal Medicine; Visit Provider Internal Medicine
DX: R79.89 Other specified abnormal findings of blood chemistry (principal)
CPT/HCPCS: 76705

== ENCOUNTER → 2022-05-03 | Outpatient (CLI) | payer MEDICARE, OTHER, SELFPAY ==
--- NOTE | 2022-05-03 16:15 | CT_ITS ---
STUDY: CTA CHEST REASON FOR EXAM: Male, 66 years old. R/O PE RADIATION DOSAGE (If Supplied By Facility): CTDIvol = ( 12.27 ) mGy, DLP = ( 567.24 ) mGycm TECHNIQUE: The examination was performed with the intravenous administration of IV 100mL Isovue-370. Post-processing of the angiographic images was performed, with multiplanar reformation and 3D reconstruction. Individualized dose optimization techniques were used for this CT. COMPARISON: None. FINDINGS: Normal enhancement of the main pulmonary artery and right and left pulmonary arteries. Normal enhancement of the bilateral peripheral pulmonary arteries. There is no demonstrated pulmonary embolism. Normal thoracic aorta and visualized great vessels. There is no demonstrated aortic dissection. There are calcifications of the coronary arteries. Normal mediastinum. Normal hilar regions. Normal visualized trachea and bronchi. Hyperinflation. Emphysematous changes worse in the upper lobes. Centrilobular emphysematous changes are seen in the upper lobes more prominent in the posterior aspect of the right upper lobe. There is also evidence of scarring in the right middle lobe and right lower lobe with subpleural blebs. There is a new 2.1 cm x 1.5 cm x 1.7 cm spiculated mass in the peripheral lateral aspect of the right upper lobe as seen on axial image #20 and 8 and coronal image #180. A neoplastic process should BE ruled out. Correlation with a PET scan is recommended. Is also evidence of a 6.3 mm pleural-based nodule in the medial aspect of the superior segment of the right Normal pleura. Normal chest wall structures. There are degenerative changes of thoracic spine. Normal visualized upper abdomen. CT/CTA Chest W/WO Contrast IMPRESSION: No evidence of pulmonary embolism There is a 2.1 cm x 1.5 cm x 1.7 cm spiculated mass in the peripheral lateral aspect of the right upper lobe. Correlation with a PET scan is recommended. Hypoinflation and scarring with emphysematous changes worse in the right lung. Electronically Signed: Vasquez Smith MD at 17:13 EST ,
[2022-05-03 16:31] LABS: CREATININE FINGERSTICK 1.4 mg/dL (0.70-1.30)
== END | disposition home or self-care (01) ==
LOC: CT 15:56
PROVIDERS: PCP Internal Medicine; Referring Provider Internal Medicine; Visit Provider Internal Medicine
DX: R04.2 Hemoptysis (principal)
CPT/HCPCS: 71275; Q9967

== ENCOUNTER → 2022-05-30 | Outpatient (CLI) | payer MEDICARE, OTHER, SELFPAY ==
--- NOTE | 2022-05-30 11:30 | PET_ITS ---
EXAMINATION: FDG PET-CT INDICATIONS: A 66-year-old male with history of pulmonary nodularity.. COMPARISON EXAMINATION: None available INDEX LESION SIZE SUV INTERPRETATION Right upper lung field, right upper lobe 16.4-mm 3.5 Fulfills quantitative criteria for viable neoplasm Additional right upper lung field (n=1) 1.8 (max) Quantitative criteria for viable neoplasm are not fulfilled TECHNIQUE: Following the intravenous administration of 14.29 mCi of F-18 deoxyglucose via the right wrist, multiplanar image acquisitions of the neck, chest, abdomen and pelvis to level of mid thigh, obtained at one hour post radiopharmaceutical administration contemporaneously interpreted with the current CT of the neck, chest, abdomen and pelvis, to level of mid thigh, dated 05/30/22 via coregistration reveals: BLOOD GLUCOSE LEVEL:?? 85 mg/dl?HEIGHT:?74 inches?WEIGHT: 246 lbs. FINDINGS: Head/Neck: There is no evidence of abnormal increased glucose metabolism in the pharyngeal mucosal space, parapharyngeal space, bilateral-lateral and anterior neck, hypopharynx and distribution of the laryngeal structures. The visualized portion of the cerebral cortical-subcortical structures demonstrate symmetric and preserved glucose metabolism. Facilitated FDG concentration is noted in the anterior neck, laryngeal structures associated with the true-false vocal cord, vestibular folds without evidence of soft tissue thickening symmetrically apparent consistent with normal physiologic tracer uptake. CHEST: Facilitated FDG concentration is noted in the right upper posterior lung zone, right upper lobe with a calculated maximal standard uptake value of 3.5. The maximal axial diameter of the metabolic, morphologic abnormality is 16.4-mm. A second nodular focus noted in the right upper lung field, right upper lobe generates a calculated maximal standard uptake value of 1.8. Quantitative criteria for viable neoplasm are not fulfilled. Prominent uptake is defined in the ascending and descending thoracic aorta commensurate with activated leukocytes associated with atherosclerotic plaque formation. (Johnny et al, Clinical Nuclear Medicine 29:93, 2004). Pertinent chest CT findings are as follows. Additional parenchymal changes noted in the right hemithorax pulmonary parenchyma demonstrates no evidence of increased tracer uptake. Coronary arterial calcification is observed. The maximal axial diameter of the ascending thoracic aorta is 42.8-mm. Bilateral axillary and scattered mediastinal soft tissue densities are ametabolic. Abdomen/Pelvis: Normal physiologic distribution of the radiopharmaceutical is apparent in the hepatic (3.5) and splenic parenchyma, both renal units, bladder and visualized intestinal tract. Diffuse radiopharmaceutical concentration is noted in all four quadrants of the abdomen and pelvis. Pertinent abdomen and pelvis CT findings are as follows. There is atherosclerotic calcification defined in the abdominal aorta without evidence of dilatation-aneurysm formation. Pelvic arterial calcification is observed. Calcified phlebolith formation is noted in the left lower hemipelvis. Fat containing left inguinal hernia is noted. Right and left inguinal soft tissue densities are non-glucose avid. The prostate gland appears surgically absent. Skeletal: Degenerative changes are noted in the cervical, thoracic and lumbar spine without evidence of increased radiopharmaceutical concentration. There are no well-defined sclerotic-lytic changes manifest on review of the appendicular-axial skeletal structures. PET/PET/CT Tumor Base -Thigh Init IMPRESSION: 1. Increased radiopharmaceutical concentration defined in the posterior aspect of the right upper lobe fulfills quantitative criteria for viable neoplasm. Histopathologic analysis is recommended. (Maldonado et al, Annals of Internal Medicine, 138:724, 2003). 2. The second focus of increased radiopharmaceutical concentration noted in the right upper lung field, right upper lobe does not fulfill quantitative criteria for viable neoplasm with single point technique. 3. No other quantitatively significant hypermetabolic abnormalities are noted. Electronic Signature Jose Larson D.O. Accurate Quantification of SUVs for this report are calculated using the exclusive [employer] Technology. (U.S. Patent No. [id number] [id number] [phone] patent [phone] [id number] [phone]). Standardization and correction of the FDG SUV metric via [employer] technology allow for vendor non-specific objective quantitative examination comparison and optimization of the sensitivity and specificity of the FDG PET-CT examination. Electronically Signed: Jose Larson, at 23:53 EDT ,
== END | disposition home or self-care (01) ==
LOC: ONC 11:06
PROVIDERS: PCP Internal Medicine; Referring Provider Internal Medicine; Visit Provider Internal Medicine
DX: R91.8 Other nonspecific abnormal finding of lung field (principal)
CPT/HCPCS: 78815; A9552

== ENCOUNTER → 2022-06-15 | Outpatient (CLI) | payer MEDICARE, OTHER, SELFPAY ==
--- NOTE | 2022-08-01 16:58 | PFTCOMP ---
Complete pulmonary function test report Indication: Dyspnea Smoking history: Former [id number] smoker, quit 25 years ago. Referring physician: Dr. Alpesh Parisi Spirometry pre and post bronchodilator showed: 1. Mild obstruction possibly consistent with Gold 1 COPD. 2. No response to bronchodilator 3. Review of the flow volume loop corroborated mild airway obstruction. Rn Private Duty comments included good patient effort, and meeting technical standards of acceptability and reproducibility. Lung volume studies by plethysmography showed: 1. No evidence of restriction. TLC was 115% predicted, vital capacity 133% predicted 2. No evidence of hyperinflation. 3. Nonspecific reduction of residual volume and RV/TLC likely reflect good thoracic/respiratory muscle strength and/or good thoracic compliance Diffusing capacity by single breath carbon monoxide technique was normal. There is no prior study available for comparison.
== END | disposition home or self-care (01) ==
PROVIDERS: PCP Internal Medicine; Referring Provider Internal Medicine Pulmonary Disease; Visit Provider Internal Medicine Pulmonary Disease
DX: R06.02 Shortness of breath (principal); J44.9 Chronic obstructive pulmonary disease, unspecified
CPT/HCPCS: 94060; 94726; 94729

== ENCOUNTER 2022-06-16 08:39 | Outpatient (CLI) | payer MEDICARE, OTHER, SELFPAY ==
[2022-06-16] VITALS (13 sets, daily range): BP systolic 95–165; BP diastolic 52–88; PULSE 52–62; RESP 10–26; TEMP 36.9; O2SAT 91–98; BMI 30.9
--- NOTE | 2022-06-16 08:52 | CT_ITS ---
PROCEDURE: CT GUIDED CORE NEEDLE BIOPSY OF A right upper lobe LUNG LESION INDICATION: Male, 66 years old. Irregular right upper lobe nodule. PHYSICIAN: Dr. Luis Salinas CONSENT: Written informed consent was obtained having explained the risks, benefits and alternatives in detail with the patient who accepted the risks and agreed to proceed. Laboratory review and clinical assessment was performed. CONSCIOUS SEDATION PROTOCOL: The Drugs used were: 2 mg Versed, IV., and 50 mcg Fentanyl, IV. The sedation time was: 22 minutes. Conscious sedation was started at 9:55 AM and terminated at 10:17 AM. The conscious sedation protocol was independently monitored. RADIATION DOSAGE (If Supplied By Facility): CTDIvol = ( 20 ) mGy, DLP = ( 1120 ) mGycm Individualized dose optimization techniques were used for this CT. TECHNIQUE: The patient was placed in the right side up decubitus position. A noncontrast CT was performed to localize the lesion in the peripheral aspect of the right upper lobe . The skin surface was prepped and draped in a sterile fashion. 1% lidocaine was used for local anesthesia. Using CT guidance, a 20-gauge coaxial biopsy device was advanced to the periphery of the lesion. A total of 5 core specimens were obtained. The specimens were placed in a formalin solution. A post procedure CT demonstrated no adverse sequelae or pneumothorax. The patient tolerated the procedure well without adverse event. A negative biopsy does not exclude malignancy. Further imaging or clinical followup based on patient condition and degree of clinical suspicion for malignancy. Suggest rebiopsy, if biopsy results do not match with clinical scenario. CT/Biopsy/Inj or Needle Placement IMPRESSION: 1. CT directed core needle biopsy of the right upper lobe pulmonary nodule using CT image guidance with image documentation as described. Pathology results are pending. 2. Conscious Sedation protocol utilized with independent monitoring. Electronically Signed: Vasquez Smith MD at 10:57 EDT ,
[2022-06-16 09:03] LABS: Prothrombin Time (Protime)PT. 12.5 SECONDS (11.7-14.9)
[2022-06-16 09:04] LABS: Partial Thromboplast Time 32.3 Seconds (24.1-36.2)
[2022-06-16] MEDS: 0.9% Saline Lock 10 ML Syringe IV (09:40)
[2022-06-16] MEDS: Midazolam 2 MG/2 ML Syringe IV (09:53)
[2022-06-16] MEDS: fentaNYL 100 MCG/2 ML Ampul IV (09:54)
[2022-06-16] MEDS: Lidocaine 2% (20 ml mdv) 20 ML Vial INFILT (10:08)
--- NOTE | 2022-06-16 10:15 | ASPIGT_PTH ---
PATIENT: KIERSTEN ANDREA LOC: U#:[id number] AGE/SX: 66/M ROOM: RE06/16/[address]: Dr. Alpesh Parisi MD : 1955 BED: DIS: 06/16/2022 SPEC #: [id number] RECD: 06/16/22 10:44 STATUS: BRUCE REBennett #: [id number] RYAN: 06/16/22 10:[address]: Alpesh Parisi V DEPT: SURGICAL PATHOLOGY RECD BY: Sandie Maddox ENTERED: 06/16/22 10:44 SP TYPE: ASP RAD OTHR DR: Dr. Lyudmila Brewer DO Tissues: Lung, NOS Procedures: FNA Specimen Adequacy Elastin Stain (control) Trichrome (control) Special Stain Group II PAS Stain (control) Surgery Specimen Level IV Retic (control) Iron Stain (control) Imprint (control) HEADER OPERATION: CT-guided right lung biopsy PRE-OP DIAGNOSIS: Right upper lobe nodule TISSUE SUBMITTED: Right upper lung 20-gauge core x5 MICROSCOPIC DIAGNOSIS Right upper lobe of lung mass, CT-guided core biopsy: Mild fibrosis. Anthracotic pigment. No evidence of malignancy. See comment. AM:lawson 06/19/2022 COMMENT The specimen is evaluated at the time of biopsy by Dr. Howard. Immediate Evaluation = Bloody specimen. Rare benign cells noted. Negative for malignant cells. Special stains for PAS, trichrome, iron, reticulin and elastin with matched controls support the above diagnosis. MICROSCOPIC DESCRIPTION Slides are reviewed. GROSS DESCRIPTION Received in fixative is one container labeled with the patient's name and designated right lung. The specimen consists of multiple irregular fragments of light hawkins soft tissue that in aggregate measure 0.8 x 0.1 x <0.1 cm. The specimen is totally submitted in one cassette. Two touch imprints are prepared at the time of core biopsy. / SJ:lawson 06/16/2022 TC:5 CPT: 80242, 48562, 80631 x5
--- NOTE | 2022-06-16 10:30 | RAD_ITS ---
REASON FOR EXAM: Male, 66 years old. Post lung biopsy -- Immediately post lung biopsy TECHNIQUE: AP inspiration and expiration views following right lung biopsy. COMPARISON: None. FINDINGS: REASON FOR EXAM: Male, 66 years old. Post lung biopsy -- Immediately post lung biopsy TECHNIQUE: AP inspiration and expiration views following right lung biopsy. COMPARISON: None. FINDINGS: No evidence of pneumothorax on the immediate post right upper lobe lung biopsy. RAD/Chest Insp/Exp 2 View IMPRESSION: No evidence of pneumothorax on the immediate post right lung biopsy radiographs. Electronically Signed: Vasquez Smith MD at 10:53 EDT ,
--- NOTE | 2022-06-16 12:25 | RAD_ITS ---
STUDY: X-RAY CHEST REASON FOR EXAM: Male, 66 years old. 2 hr post lung biopsy -- 2 hours post lung biopsy TECHNIQUE: AP inspiration and expiration views. COMPARISON: Comparison is made with prior study done earlier in the day. FINDINGS: No evidence of pneumothorax on the 2 hour post right lung biopsy radiographs. RAD/Chest Insp/Exp 2 View IMPRESSION: No evidence of pneumothorax on the 2 hour post right lung biopsy radiographs. Electronically Signed: Vasquez Smith MD at 12:46 EDT ,
[2022-06-16 16:42] LABS: Xtra Tube EP Lab EXTRA TUBE
[2022-06-16 16:44] LABS: Xtra Tube EP Lab EXTRA TUBE
== END 2022-06-16 23:59 | disposition home or self-care (01) ==
PROVIDERS: PCP Internal Medicine; Referring Provider Internal Medicine Pulmonary Disease; Visit Provider Internal Medicine Pulmonary Disease
DX: R91.1 Solitary pulmonary nodule (principal); J84.10 Pulmonary fibrosis, unspecified
CPT/HCPCS: 32408; 36415; 71046; 77012; 85610; 85730; 88172; 88305; 88313; 99156; J7050; A4216

== ENCOUNTER → 2022-06-23 | Outpatient (CLI) | payer MEDICARE, OTHER, SELFPAY ==
[2022-06-27 20:08] LABS: QNTFERON TB Mitogen Value > 10.00 IU/mL (.); QNTFERON TB Nil Value 0.01 IU/mL (.); QNTFERON TB1+ Ag Value 0.01 IU/mL (.); QNTFERON TB2+ Ag Value 0 IU/mL (.); QNTIFERON TB Positive Criteria Negative (Negative)
== END | disposition home or self-care (01) ==
LOC: MTLAB 15:08
PROVIDERS: PCP Internal Medicine; Referring Provider Internal Medicine Pulmonary Disease; Visit Provider Internal Medicine Pulmonary Disease
DX: R06.02 Shortness of breath (principal); R04.2 Hemoptysis
CPT/HCPCS: 36415; 86480

== ENCOUNTER 2022-06-28 12:24 | Day surgery (SDC) | payer MEDICARE, OTHER, SELFPAY ==
[2022-06-28] VITALS (7 sets, daily range): BP systolic 113–129; BP diastolic 58–74; PULSE 50–60; RESP 16–17; TEMP 36.1–36.4; O2SAT 92–99; BMI 29.9
--- NOTE | 2022-06-28 | FLU_PTH ---
PATIENT: KIERSTEN ANDREA LOC: EN U#:[id number] AGE/SX: 66/M ROOM: RE06/28/[address]: Dr. Alpesh Parisi MD : 1955 BED: DIS: 06/28/2022 SPEC #: [id number] RECD: 06/28/22 14:59 STATUS: BRUCE ALY #: [id number] RYAN: 06/28/22 00:[address]: Alpesh Parisi V DEPT: CYTOLOGY RECD BY: Carmen Melgar ENTERED: 06/29/22 07:44 SP TYPE: Fluid OTHR DR: Dr. Lyudmila Brewer DO Tissues: A - Bronchus of right upper lobe B - Bronchus of right upper lobe C - Bronchus of right upper lobe Procedures: Special Stain Group II Special Stain Group I Surgery Specimen Level IV AFB Stain (control) GMS Stain (control) Cytospin Fluid HEADER OPERATION: Bronchoscopy (MAC), biopsies, brushings and washings PRE-OP DIAGNOSIS: Right upper lobe nodule TISSUE SUBMITTED: A - Right upper lobe nodule fluid, B - Right upper lobe nodule brush, C - Right upper lobe nodule x3 slides DIAGNOSIS CYTOLOGY A. Right upper lobe lung bronchioalveolar lavage fluid (cytospin and cell block): Negative for malignant cells. Negative for acid-fast bacilli and fungal organisms. See comment. B. Right upper lobe lung nodule brushings (cytospin and cell block): Negative for malignant cells. C. Right upper lobe lung nodule brushings (smears): Negative for malignant cells. AM:lawson 06/30/2022 COMMENT A. AFB and GMS stains with matched controls were used in the evaluation of this case. Please correlate with surgical specimen [id number]. CYTOLOGY STUDY Slides are reviewed. CYTOLOGY GROSS A - Received is 5 ml of clear, slightly pink fluid labeled with the patient's name and and designated per the requisition as right upper lobe. Submitted for cytology preparation including cell block. B - Received is a metallic endoscopic cytobrush with adherent minute fragments of hawkins-red tissue brush in 2 ml of clear red fluid and labeled with the patient's name and and designated per the requisition as brush. The material is dislodged from the brush and submitted for cytology preparation including cell block. C - Received are three smears labeled with the patient's name and designated per the requisition as right upper lobe nodule. Submitted for staining. / lawson 06/29/2022 TC:5 CPT: 94569 x2, 15834 x2, 31770, 26415 x2
--- NOTE | 2022-06-28 | LUNG_PTH ---
PATIENT: KIERSTEN ANRDEA LOC: EN U#:[id number] AGE/SX: 66/M ROOM: RE06/28/[address]: Dr. Alpesh Parisi MD : 1955 BED: DIS: 06/28/2022 SPEC #: [id number] RECD: 06/28/22 14:53 STATUS: BRUCE ALY #: [id number] RYAN: 06/28/22 00:[address]: Alpesh Parisi V DEPT: SURGICAL PATHOLOGY RECD BY: Carmen Melgar ENTERED: 06/29/22 07:57 SP TYPE: LUNG BX OTHR DR: Dr. Lyudmila Brewer DO Tissues: Right upper lobe of lung, NOS Procedures: Elastin Stain (control) Trichrome (control) Special Stain Group II Surgery Specimen Level IV Retic (control) Iron Stain (control) HEADER OPERATION: Bronchoscopy (MAC), biopsies, brushings and washings PRE-OP DIAGNOSIS: Right upper lobe nodule TISSUE SUBMITTED: Right upper lobe nodule MICROSCOPIC DIAGNOSIS Right upper lobe nodule, biopsy: Minimal fibrosis. No evidence of malignancy. See comment. AM:lawson 06/30/2022 COMMENT Trichrome, reticulin, elastin and iron stains with matched controls support the above diagnosis. Please correlate with cytology specimen [id number]. MICROSCOPIC DESCRIPTION Slides are reviewed. GROSS DESCRIPTION Received in fixative is one container labeled with the patient's name and designated biopsy right upper lobe. The specimen consists of multiple irregular fragments of dark hawkins soft tissue that in aggregate measure 0.8 x 0.2 x 0.1 cm. The specimen is totally submitted in one cassette. / AM:lawson 06/29/2022 TC:5 CPT: 95707, 40026 x4
[2022-06-28] MEDS: Lactated Ringers 1,000 ML 15 ML IV (12:52)
[2022-06-28] MEDS: Lidocaine Jelly 2% 20 ML Syringe (URO-JET) 1 APPLIC (14:08)
[2022-06-28] MEDS: Lidocaine 2% (5ml sdv) 5 ML VIAL.MPF (14:09)
[2022-06-28] MEDS: Phenylephrine 0.25% 15 ML NASAL.SRY 15 SPRAY NASAL (14:11)
--- NOTE | 2022-06-28 14:41 | OP.BRONCH_ITS ---
Patient Name: Junaid Sahu Procedure Date: 06/28/2022 1:22 PM Date of : 1955 Age: 66 Procedure: Bronchoscopy Indications: Hemoptysis with abnormal CXR, Right upper lobe mass Providers: Alpesh Parisi MD Medicines: Lidocaine applied to nares and subglottic space Complications: No immediate complications Procedure: Pre-Anesthesia Assessment: - A History and Physical has been performed. The patient's medications, allergies and sensitivities have been reviewed. - A History and Physical has been performed. The patient's medications, allergies and sensitivities have been reviewed. After I obtained informed consent, the scope was passed under direct vision. Throughout the procedure, the patient's blood pressure, pulse, and oxygen saturations were monitored continuously. The bronchoscope was introduced through the right nostril and advanced to the tracheobronchial tree of both lungs. The patient tolerated the procedure well. The total duration of the procedure was 18 minutes. Moderate Sedation: An independent trained observer was present and continuously monitored the patient. Findings: The nasopharynx/oropharynx appears normal. The larynx appears normal. The vocal cords appear normal. The subglottic space is normal. The trachea is of normal caliber. The jone is sharp. The tracheobronchial tree was examined to at least the first subsegmental level. Bronchial mucosa and anatomy are normal; there are no endobronchial lesions, and no secretions. Transbronchial biopsies of a lesion were performed in the apical segment of the right upper lobe using alligator forceps and sent for cell count, bacterial culture, viral smears & culture, and fungal & AFB analysis and cytology. The procedure was guided by fluoroscopy. Biopsy of lung tissue was obtained. Seven biopsy passes were performed. Bronchoalveolar lavage was performed in the RUL apical segment (B1) of the lung and sent for AFB analysis & culture and fungal analysis. 120 mL of fluid were instilled. 20 mL were returned. The return was blood-tinged. There were no mucoid plugs in the return fluid. Fluoroscopy guided transbronchial brushings of a lesion were obtained in the apical segment of the right upper lobe and sent for cell count, bacterial culture, viral smears & culture, and fungal & AFB analysis and cytology. One sample was obtained. Impression: - Hemoptysis with abnormal CXR - Right upper lobe mass - The airway examination was normal. - Transbronchial lung biopsies were performed. - Bronchoalveolar lavage was performed. - Transbronchial brushings were obtained. Recommendation: - Await test results. Procedure Code(s): --- Professional --- 05999, Bronchoscopy, rigid or flexible, including fluoroscopic guidance, when performed; with transbronchial lung biopsy(s), single lobe 14001, Bronchoscopy, rigid or flexible, including fluoroscopic guidance, when performed; with bronchial alveolar lavage 99737, Bronchoscopy, rigid or flexible, including fluoroscopic guidance, when performed; with brushing or protected brushings Diagnosis Code(s): --- Professional --- R91.8, Other nonspecific abnormal finding of lung field R04.2, Hemoptysis CPT copyright 2017 [employer]. All rights reserved. The codes documented in this report are preliminary and upon skip miner review may be revised to meet current compliance requirements. MD Alpesh Alexander MD 06/28/2022 2:40:56 PM This report has been signed electronically. Number of Addenda: 0 Note Initiated On: 06/28/2022 1:22 PM
--- NOTE | 2022-06-28 14:49 | RAD_ITS ---
STUDY: X-RAY CHEST REASON FOR EXAM: Male, 66 years old. Post op bronchoscopy TECHNIQUE: Single AP portable view of the chest. COMPARISON: Comparison is made with prior study dated June 16, 2022. FINDINGS: There is hyperinflation of the lungs consistent with chronic obstructive lung disease (COPD). Since prior study, there has been progressive infiltrate in the left upper lobe most likely secondary to the post bronchoscopy changes with fluid. Stable increased markings in the peripheral aspect of the right upper lobe. No evidence of pneumothorax. Normal size heart. Normal mediastinum and trevor. Normal visualized pulmonary arteries. There is atherosclerotic calcification of the aortic arch with tortuosity. There are diffuse degenerative changes of the visualized thoracic spine. Normal visualized ribs, clavicles, and shoulders. There is no demonstrated abnormality of the visualized soft tissue structures of the upper abdomen. RAD/Chest 1 View (Portable) IMPRESSION: Progressive increased markings in the left upper lobe. Stable increased markings in the peripheral aspect of the right upper lobe. Electronically Signed: Vasquez Smith MD at 15:15 EDT ,
[2022-06-28 15:00] LABS: Cytology, Body Fluid / CSF SEE PATHOLOGY REPORT
== END 2022-06-28 15:24 | disposition home or self-care (01) ==
LOC: EN 12:25 → AC 12:26
PROVIDERS: PCP Internal Medicine; Referring Provider Internal Medicine Pulmonary Disease; Visit Provider Internal Medicine Pulmonary Disease
PROC: 0BJ08ZZ Inspection of Tracheobronchial Tree, Via Natural or Artificial Opening Endoscopic (ICD-10-PCS; CPT 31622; principal; 2022-06-28 13:15)
DX: R04.2 Hemoptysis (principal); R91.8 Other nonspecific abnormal finding of lung field
CPT/HCPCS: 31628; 31624; 31623; 71045; 76000; 87015; 87101; 87116; 87206; 88108; 88305; 88312; 88313; J7120; J2405

== ENCOUNTER → 2022-07-06 | Outpatient (CLI) | payer MEDICARE, OTHER, SELFPAY ==
[2022-07-06 15:43] LABS: Erythrocyte Sedimentation Rate 29 mm/hr (0-20)
[2022-07-10 13:07] LABS: ANTINUCLEAR ANTIBODIES DIRECT Negative (Negative)
== END | disposition home or self-care (01) ==
LOC: MTLAB 13:09
PROVIDERS: PCP Internal Medicine; Referring Provider Internal Medicine Pulmonary Disease; Visit Provider Internal Medicine Pulmonary Disease
DX: R91.1 Solitary pulmonary nodule (principal)
CPT/HCPCS: 36415; 85652; 86038; 86431

== ENCOUNTER 2022-12-02 13:44 | Emergency (ER) | payer MEDICARE, OTHER, SELFPAY ==
[2022-12-02 13:45] VITALS: BP 157/76; PULSE 72; RESP 18; TEMP 36; O2SAT 97; BMI 31.6
--- NOTE | 2022-12-02 13:59 | RAD_ITS ---
EXAM: XR LEFT RIBS AND AP CHEST, 3 OR MORE VIEWS CLINICAL INDICATION: trauma TECHNIQUE: Frontal and oblique views of the left ribs and frontal view of the chest. COMPARISON: Chest radiograph 06/16/2022 FINDINGS: LUNGS AND PLEURAL SPACES: Post inflammatory changes of both lung apices again noted. Hyperinflation suggesting emphysema. No pleural effusion or pneumothorax. HEART: Normal. Normal heart size. MEDIASTINUM: No mediastinal or hilar mass. BONES/JOINTS: No acute abnormality. RAD/Ribs Uni Min 3V w/PA Chest IMPRESSION: No acute rib fracture. Postinflammatory changes of the lungs. COPD. Electronically Signed: Jace Johnson MD at 14:58 EDT ,
--- NOTE | 2022-12-02 13:59 | ED.VIS.FALL ---
HPI HPI - Fall History of Present Illness Chief Complaint: Fall Narrative Narrative: Patient presents with left-sided rib pain after a fall today. He was getting off his riding mower and tripped. He has no head injury, no neck pain, no extremity weakness, no extremity pain. No neck or back pain. [facility] Medical History (Updated 12/02/22 @ 15:[address] Chapin Santiago MD) Arthritis Back pain Cancer Cluster B personality disorder COPD (chronic obstructive pulmonary disease) DVT (deep venous thrombosis) Excessive bleeding Former smoker Gastric reflux High cholesterol History of echocardiogram History of steroid therapy History of steroid therapy History of stress test Hypertension Injury of back Leg cramps Pulmonary embolism Unspecified mood [affective] disorder Home Medications cholecalciferol (vitamin D3) 25 mcg (1,000 unit) tablet (Vitamin D3) 1,000 unit PO DAILY 05/27/15 [History Last Taken 05/27/15] docusate sodium 100 mg capsule (DOK) 100 mg PO DAILY PRN Constipation 05/27/15 [History Last Taken 05/27/15] simvastatin 20 mg tablet 20 mg PO QHS 05/27/15 [History Last Taken 06/15/22] celecoxib 200 mg capsule 200 mg PO QHS 07/22/19 [History Last Taken 06/15/22] diphenhydramine HCl 25 mg capsule 25 mg PO DAILY PRN Itching 07/22/19 [History Last Taken Unknown] losartan 50 mg tablet 50 mg PO DAILY htn 07/22/19 [History Last Taken 06/16/22] omeprazole 40 mg capsule,delayed release 40 mg PO DAILY gerd 07/22/19 [History Last Taken 06/15/22] morphine 10 mg capsule,extended release pellets 15 mg PO BID pain 08/01/19 [History Last Taken 09/15/19 05:30] apixaban 5 mg tablet 5 mg PO BID #120 tabs 08/02/19 [Rx Last Taken 06/25/22] leuprolide 3.75 mg intramuscular syringe kit 3.75 mg IM .Q3 MONTHS 09/10/19 [History Last Taken Unknown] fluticasone fur. 200 mcg-umeclid 62.5 mcg-vilant 25 mcg inhalat.powder (Trelegy Ellipta) 1 inh inhalation DAILY 06/26/22 [History Last Taken Unknown] citalopram 20 mg tablet 40 mg PO DAILY 11/09/22 [History Last Taken Unknown] Allergy/AdvReac Type Severity Reaction Status Date / Time hydrocodone bitartrate AdvReac Itching Verified 12/02/22 13:47 [From Vicodin] Family History (Updated 11/09/22 @ 15:43 by Makayla Schuster) Other Alcoholism Surgical History History of back surgery History of cardiac catheterization History of coronary artery stent placement Hx of arthroscopy of shoulder Hx of colonoscopy Hx of elbow surgery Hx of left knee surgery Hx of prostatectomy Hx of right knee surgery Hx of surgical procedure Hx of total knee replacement Social History (Updated 11/09/22 @ 15:43 by Makayla Schuster) Smoking Status: Former smoker alcohol intake: former substance use type: does not use ROS ROS ED ROS Narrative Social: Noncontributory Medications: Reviewed Past medical history: Reviewed Review of systems General: Patient has no head injury or loss of consciousness HEENT: No facial injury Neck: No neck pain Cardiovascular: Patient denies any chest pain or palpitations Chest wall: Left sided chest wall pain Respiratory: There is no shortness of breath GI: There is no nausea vomiting diarrhea or abdominal pain, no abdominal wall contusions Skin: No lacerations or abrasions Neurological: Patient has no memory loss, confusion, or any focal weakness Psychiatric: No recent behavioral changes Back: No back pain, no problems with ambulation Musculoskeletal: No extremity injury EXAM Physical Exam Narrative Exam Narrative: Physical exam Vitals reviewed General: Does not appear in significant distress, no obvious injuries HEENT: No facial injury Head: No head injury Eyes: Extraocular movements intact Neck: No C-spine tenderness with full range of motion Heart: Regular rate normal pulses Chest wall: Tenderness in the lower ribs and the anterior axillary line region. I do not see any abrasions or contusions. Lungs clear lungs bilaterally with normal inspiration and expiration without tachypnea GI: Abdomen is soft and nontender there is no mass no guarding no abdominal wall contusion : Stable pelvis Musculoskeletal: Moves all extremities without any signs of trauma Skin: No abrasions or laceration Neurological: Patient is alert and oriented with no focal deficits Const Vital Signs: 12/02/22 13:45 12/02/22 14:30 Temperature 96.8 F L Temperature Source Temporal Pulse Rate 72 Respiratory Rate 18 Respiratory Effort Normal Non-Labored Respiratory Depth Normal Respiratory Pattern Normal Blood Pressure 157/76 H Blood Pressure Mean 103 Pulse Ox 97 Oxygen Delivery Method Room Air Room Air MDM MDM MDM Narrative Medical decision making narrative: Rib x-ray and chest x-ray read by me as normal MDM: Patient had a normal x-ray, there is no evidence of rib fracture or pneumothorax. There is no indication for head CT or any other imaging since the patient did not hit his head or had any other injury. He is on pain management at home and does not require prescription of analgesia from a. I will discharge him in stable condition. Radiography Diagnostic Testing: Clinical Impression(s) from Imaging Studies Ribs w/Chest X-Ray 12/02/22 13:59 IMPRESSION: No acute rib fracture. Postinflammatory changes of the lungs. COPD. Electronically Signed: Jace Johnson MD at 14:58 EDT , Discharge Plan Triage Chief Complaint: Fall ED Provider: Chapin Santiago Dx/Rx/DC Orders Clinical Impression: Contusion of rib, Fall Instructions: ED Bruise, Rib Prescriptions: No Action simvastatin 20 MG tablet 20 mg PO QHS Patient Comments: cholesterol lowering docusate sodium [DOK] 100 MG capsule 100 mg PO DAILY PRN (Reason: Constipation) Patient Comments: constipation cholecalciferol (vitamin D3) [Vitamin D3] 1,000 UNIT tablet 1,000 unit PO DAILY Patient Comments: supplement citalopram 20 mg tablet 40 mg PO DAILY Patient Comments: mental health losartan 50 MG tablet 50 mg PO DAILY celecoxib 200 MG capsule 200 mg PO QHS omeprazole 40 MG capsule,delayed release(DR/EC) 40 mg PO DAILY diphenhydramine HCl 25 MG capsule 25 mg PO DAILY PRN (Reason: Itching) morphine 10 MG capsule,extend.release pellets 15 mg PO BID apixaban 5 MG tablet 5 mg PO BID Qty: 120 0RF leuprolide 3.75 MG syringe kit 3.75 mg IM .Q3 MONTHS Trelegy Ellipta 200-62.5-25 mcg blister with device 1 inh INHALATION DAILY Primary Care Provider: Lyudmila Brewer Referrals: Lyudmila Brewer, [Primary Care Provider] - 3-5 Days Disposition Disposition: Home, Self Care
== END 2022-12-02 15:07 | disposition home or self-care (01) ==
PROVIDERS: Emergency Provider Emergency Medicine; PCP Internal Medicine; Visit Provider Emergency Medicine
DX: S20.212A Contusion of left front wall of thorax, initial encounter (principal); J44.9 Chronic obstructive pulmonary disease, unspecified; Z87.891 Personal history of nicotine dependence; E78.00 Pure hypercholesterolemia, unspecified; I10 Essential (primary) hypertension; W17.89XA Other fall from one level to another, initial encounter; K21.9 Gastro-esophageal reflux disease without esophagitis; Z86.718 Personal history of other venous thrombosis and embolism; Z79.01 Long term (current) use of anticoagulants; Z79.51 Long term (current) use of inhaled steroids; Z79.899 Other long term (current) drug therapy; Z95.5 Presence of coronary angioplasty implant and graft; Z90.79 Acquired absence of other genital organ(s); Z96.659 Presence of unspecified artificial knee joint
CPT/HCPCS: 71101; 99282

== ENCOUNTER → 2023-06-19 | Outpatient (CLI) | payer MEDICARE, OTHER, SELFPAY ==
--- NOTE | 2023-06-19 10:00 | PET_ITS ---
EXAMINATION: Ga 68 PSMA ? INDICATIONS: 67-year-old male with a history of prostate carcinoma. ? COMPARISON EXAMINATION: FDG-PET CT study dated 05/30/2022. ? TECHNIQUE: Following the intravenous administration of 9.73 mCi of Ga 68 PSMA via the right hand, multiplanar image acquisitions of the head, neck, chest, abdomen and pelvis to the level of the midthigh, obtained at 73 minutes post tracer distribution reveal: ? The examination was interpreted using the EANM (Holly et al., Journal of Nuclear Medicine Molecular Imaging 44:1622, 2017) and PROMISE (Eishari et al., Journal of Nuclear Medicine 59:469, 2018) interpretive criteria. ? HEIGHT:?? 74 inches WEIGHT:?? 246 pounds ? PSMA expression score PROMISE criteria: High (3): SUV > parotid-salivary gland, intermediate (2): SUV > liver, low (1): > blood pool, < liver, (0): < blood pool. ? SUV reference values: Parotid glands 31.81. Normal liver parenchyma 8.1. Blood pool 2.9. ? FINDINGS: ? HEAD/NECK:? Symmetric radiopharmaceutical concentration is defined in the bilateral parotid and submandibular glands. Physiologic uptake is noted in the nasal cavity. ? There is no evidence of abnormal increased tracer uptake on inspection of the cranial vault. ? CHEST:? Facilitated uptake is noted in the right upper lung zone, generating a calculated standard uptake value of 2.4. The PROMISE Score is 1. Increased tracer is identified in the bilateral thoracic perihilum generating a calculated standard uptake value of 2.9. The PROMISE Score is 1. ? CT of the chest demonstrates the following anatomic characteristics: Emphysematous changes are defined in the bilateral upper lung zones. Right and left axillary soft tissue densities reveal no evidence of increased tracer uptake. A small hiatal hernia is defined. Atherosclerotic calcification is defined in the thoracic aorta without evidence of dilatation, aneurysm formation. Coronary artery calcification is observed. Visualized mediastinal and bilateral axillary soft tissue densities reveal no evidence of increased tracer uptake. ? ABDOMEN/PELVIS:? Normal physiologic tracer uptake is noted in the hepatic and splenic parenchyma, bilateral renal units, urinary bladder, and visualized intestinal tract. ? CT of the abdomen and pelvis is remarkable for the following: Atherosclerotic calcification is defined in the abdominal aorta without evidence of dilatation, aneurysm formation. Pelvic arterial calcification is observed. Fat containing left inguinal hernia is noted. Right and left inguinal soft tissue densities are ametabolic. ? SKELETAL: ? Degenerative changes defined in the thoracic and lumbar spine demonstrate no evidence of increased glucose metabolism. There are no sclerotic, mixed sclerotic-lytic, or primarily lytic changes defined in the axial skeletal structures with evidence of increased FDG uptake. ? PET/PET/CT Tumor Base -Thigh Init IMPRESSION: ? 1. NEGATIVE EXAMINATION. There is no definitive quantitative scintigraphic evidence of recurrent-metastatic viable neoplasm. Electronic Signature Jose Larson D.O. Accurate Quantification of SUVs and standardized PROMISE scores for this report are calculated using the exclusive [employer], ([place] Patent No. [id number] [id number] [phone] [place] patent [id number] [phone] [phone] ). Standardization and correction of the FDG SUV metric exclusively available with [employer] intellectual property, allow for vendor non-specific objective quantitative sequential FDG PET-CT comparison and otherwise unobtainable optimization of the sensitivity and specificity of the examination. [email or web address] Electronically Signed: Jose Larson DO at 22:45 EDT ,
== END | disposition home or self-care (01) ==
LOC: ONC 09:40
PROVIDERS: PCP Internal Medicine; Referring Provider Internal Medicine; Visit Provider Internal Medicine
DX: C61 Malignant neoplasm of prostate (principal)
CPT/HCPCS: 78815; A9595

== ENCOUNTER → 2023-07-30 | Outpatient (CLI) | payer MEDICARE, OTHER, SELFPAY ==
[2023-07-30 10:26] LABS: Potassium 4.7 mmol/L (3.5-5.1)
== END | disposition home or self-care (01) ==
LOC: LABSPEC 09:58
PROVIDERS: PCP Internal Medicine; Referring Provider Internal Medicine; Visit Provider Internal Medicine
DX: E87.5 Hyperkalemia (principal)
CPT/HCPCS: 84132

== ENCOUNTER → 2023-08-20 | Outpatient (CLI) | payer MEDICARE, OTHER, SELFPAY ==
--- NOTE | 2023-08-20 10:16 | NM_ITS ---
CLINICAL: 67-year-old male with history of clinical hyperparathyroidism. 99m Tc SESTAMIBI DUAL PHASE PARATHYROID SCINTIGRAPHY COMPARISON: None available FINDINGS: Following the intravenous administration of 26.7 mCi of 99m Tc sestamibi, image acquisitions of the anterior neck at 15 minutes and 3.0 hours post radiopharmaceutical provision reveal: 1. Immediate static blood pool acquisitions demonstrate distribution of the radiopharmaceutical in the left-right thyroid colloid, and uniform in presentation. 2. Delayed images depict symmetric incomplete washout of the radiotracer from the previously defined thyroid colloid. There is no focal retention of radiotracer identified. NM/Parathyroid Scan IMPRESSION: 1. NEGATIVE 99m Tc SESTAMIBI PARATHYROID IMAGING DUAL PHASE EXAMINATION. 2. There is no typical scintigraphic evidence of parathyroid adenoma on the present evaluation. Electronically Signed: Jose Larson DO at 9:02 EDT ,
== END | disposition home or self-care (01) ==
LOC: NM 10:14
PROVIDERS: PCP Internal Medicine; Referring Provider Internal Medicine; Visit Provider Internal Medicine
DX: E21.0 Primary hyperparathyroidism (principal)
CPT/HCPCS: 78070; A9500

== ENCOUNTER 2023-10-24 18:50 | Emergency (ER) | payer MEDICARE, OTHER, SELFPAY ==
[2023-10-24 18:51] VITALS: BP 103/76; PULSE 94; RESP 16; TEMP 36.8; O2SAT 96
--- NOTE | 2023-10-24 19:22 | ED.VIS.LOWEX ---
HPI History of Present Illness HPI Narrative: Patient presents with foreign body to his right foot. Patient states that last night he was walking out in his bare feet. Patient thinks that he stepped on a piece of metal. Patient is unsure of the size of the piece of the metal. Patient states his last tetanus was more than 5 years ago. Patient denies any paresthesias or weakness. Patient denies any other injuries. Chief Complaint: Lower Extremity Injury Informant: patient Occured/Mechanism Mechanism/Context: Yes puncture wound Onset/Context/Timing Onset: Yesterday Context: Sudden Onset Timing: Continuous Quality of Pain: Sharp Location: Right foot Worsened by: Weightbearing Relieved by: Nothing Associated Symptoms Associated Symptoms: Negative for Parasthesia, Weakness or Loss of Funtion Narrative Tetanus Immunization: 5-10 years [facility] Medical History Cluster B personality disorder Unspecified mood [affective] disorder Cancer History of steroid therapy Arthritis High cholesterol Pulmonary embolism DVT (deep venous thrombosis) Excessive bleeding Back pain Injury of back Gastric reflux Former smoker COPD (chronic obstructive pulmonary disease) Leg cramps History of echocardiogram History of stress test Hypertension History of steroid therapy Home Medications ?Medication ?Instructions ?Recorded ?Last Taken ?Type cholecalciferol (vitamin D3) 25 1,000 unit PO DAILY 05/27/15 05/27/15 History mcg (1,000 unit) tablet (Vitamin D3) docusate sodium 100 mg capsule 100 mg PO DAILY PRN Constipation 05/27/15 05/27/15 History (DOK) simvastatin 20 mg tablet 20 mg PO QHS 05/27/15 06/15/22 History celecoxib 200 mg capsule 200 mg PO QHS 07/22/19 06/15/22 History diphenhydramine HCl 25 mg capsule 25 mg PO DAILY PRN Itching 07/22/19 Unknown History losartan 50 mg tablet 50 mg PO DAILY htn 07/22/19 06/16/22 History omeprazole 40 mg capsule,delayed 40 mg PO DAILY gerd 07/22/19 06/15/22 History release morphine 10 mg capsule,extended 15 mg PO BID pain 08/01/19 09/15/19 05:30 History release pellets apixaban 5 mg tablet 5 mg PO BID #120 tabs 08/02/19 06/25/22 Rx leuprolide 3.75 mg intramuscular 3.75 mg IM .Q3 MONTHS 09/10/19 Unknown History syringe kit fluticasone fur. 200 mcg-umeclid 1 inh inhalation DAILY 06/26/22 Unknown History 62.5 mcg-vilant 25 mcg inhalat.powder (Trelegy Ellipta) citalopram 20 mg tablet 40 mg PO DAILY 11/09/22 Unknown History cephalexin 500 mg capsule 500 mg PO Q6 #40 CAPSULES 10/24/23 Unknown Rx Allergy/AdvReac Type Severity Reaction Status Date / Time hydrocodone bitartrate (From AdvReac Itching Verified 12/14/22 14:55 Vicodin) Family History Other Alcoholism Surgical History History of cardiac catheterization History of coronary artery stent placement Hx of total knee replacement Hx of colonoscopy Hx of prostatectomy History of back surgery Hx of arthroscopy of shoulder Hx of elbow surgery Hx of left knee surgery Hx of right knee surgery Hx of surgical procedure Social History Smoking Status: Former smoker alcohol intake: former substance use type: does not use ROS ROS ED Constitutional Constitutional ED: Denies chills or fever(s) Eyes Eyes: Denies blurry vision or change in vision ENT ENT ED: Denies rhinorrhea or sore throat Cardiovascular Cardiovascular: Denies chest pain or palpitations Respiratory/Chest Respiratory/Chest: Denies cough or dyspnea Gastrointestinal Gastrointestinal: Denies nausea or vomiting Genitourinary Genitourinary ED: Denies dysuria or hematuria Musculoskeletal Musculoskeletal: Reports back pain and neck pain Integumentary Denies abscess or rash Neurologic Neurologic: Denies headache(s) or weakness Allergic/Immunologic Allergic/Immunologic ED: Denies mouth swelling or urticaria EXAM Physical Exam Const Vital Signs: 10/24/23 18:51 Temperature 98.2 F Temperature Source Oral Pulse Rate 94 Respiratory Rate 16 Blood Pressure 103/76 Blood Pressure Mean 85 Pulse Ox 96 Oxygen Delivery Method Room Air Positive well nourished and well developed General Appearance ED: well developed and NAD HEENT Reports moist mucous membranes Neck full ROM Extremity Extremity Narrative: There is a small puncture wound noted over the lateral aspect of the plantar surface of the right foot near the distal fifth metatarsal. There is no erythema or warmth noted. There is no discharge or drainage noted. There is minimal tenderness around this area. There is no active bleeding noted. Sensation was intact to light touch in all digits. Capillary refills less than 2 seconds in all digits. Strength is 5/5 in flexion extension of all digits. Neuro oriented x3, CN's II-XII intact bilaterally, moves all extremities and no sensory deficits noted Sensorium / Orientation: alert Motor Exam: strength 5/5 throughout Psych mental status grossly normal MDM MDM MDM Narrative Medical decision making narrative: Differential diagnosis includes foreign body, puncture wound, and contusion. X-rays of the right foot will be obtained to assess for radiopaque foreign body. Radiography Diagnostic Testing: Clinical Impression(s) from Imaging Studies Foot X-Ray 10/24/23 19:25 IMPRESSION: Soft tissue swelling. Tiny calcific or metallic foreign body of 1 mm roughly 4 mm deep to the skin, uncertain age. Mild distal joint narrowing and widening as described. No visible fractures. Electronically Signed: Soheila Blackwood MD at 20:50 EDT , X-rays of the right foot were obtained. There are 3 views. On my independent interpretation, there is a very small metallic foreign body noted over the lateral aspect of the right foot lateral to the distal fifth metatarsal. This measures 1 mm and is roughly 4 mm deep to the plantar surface. There is no acute fracture noted. Radiologist also interpreted the x-rays and agrees. Treatment and Re-Evaluation Narrative: Patient was given a tetanus booster. When I went to discuss the results with the patient. He had left prior to receiving his results. Patient was ordered a dose of Keflex here but left prior to this. Patient was given a prescription for Keflex that was sent to his pharmacy. Patient left prior to completing treatment and receiving discharge instructions. Discharge Plan Triage Chief Complaint: Lower Extremity Injury ED Provider: Adria Denton Dx/Rx/DC Orders Clinical Impression: Puncture wound of foot, right, Foreign body in right foot Instructions: ED Foreign Body Soft Tissue, ED Puncture Wound (Foot) Prescriptions: New cephalexin 500 mg capsule 500 mg PO Q6 Qty: 40 0RF No Action simvastatin 20 MG tablet 20 mg PO QHS Patient Comments: cholesterol lowering docusate sodium [DOK] 100 MG capsule 100 mg PO DAILY PRN (Reason: Constipation) Patient Comments: constipation cholecalciferol (vitamin D3) [Vitamin D3] 1,000 UNIT tablet 1,000 unit PO DAILY Patient Comments: supplement citalopram 20 mg tablet 40 mg PO DAILY Patient Comments: mental health losartan 50 MG tablet 50 mg PO DAILY celecoxib 200 MG capsule 200 mg PO QHS omeprazole 40 MG capsule,delayed release(DR/EC) 40 mg PO DAILY diphenhydramine HCl 25 MG capsule 25 mg PO DAILY PRN (Reason: Itching) morphine 10 MG capsule,extend.release pellets 15 mg PO BID apixaban 5 MG tablet 5 mg PO BID Qty: 120 0RF leuprolide 3.75 MG syringe kit 3.75 mg IM .Q3 MONTHS Trelegy Ellipta 200-62.5-25 mcg blister with device 1 inh INHALATION DAILY Primary Care Provider: Lyudmila Brewer Referrals: Lyudmila Brewer DO [Primary Care Provider] - 5-7 Days Print Language: Vietnamese Disposition Disposition: Home, Self Care Discharge Date/Time: 10/24/23 21:17
--- NOTE | 2023-10-24 19:25 | RAD_ITS ---
EXAM: XR RIGHT FOOT COMPLETE, 3 OR MORE VIEWS CLINICAL INDICATION: Injury/Pain TECHNIQUE: Frontal, lateral and oblique views of the right foot. COMPARISON: No relevant prior studies available. FINDINGS: BONES/JOINTS: There is narrowing of the second and third PIP joints and mild widening of the fourth PIP joint. No acute fracture. No subluxation. Normal alignment. No sclerotic or destructive changes observed. SOFT TISSUES: Mild soft tissue swelling over the fifth MTP joint. Question of tiny punctate presumed metallic foreign body deep to the skin over the distal fifth metacarpal, seen on both frontal and oblique views. No radiopaque foreign body. RAD/Foot min 3 Views IMPRESSION: Soft tissue swelling. Tiny calcific or metallic foreign body of 1 mm roughly 4 mm deep to the skin, uncertain age. Mild distal joint narrowing and widening as described. No visible fractures. Electronically Signed: Soheila Blackwood MD at 20:50 EDT ,
== END 2023-10-24 21:17 | disposition home or self-care (01) ==
PROVIDERS: Emergency Provider Emergency Medicine; PCP Internal Medicine; Visit Provider Emergency Medicine
DX: S91.341A Puncture wound with foreign body, right foot, initial encounter (principal); J44.9 Chronic obstructive pulmonary disease, unspecified; Z87.891 Personal history of nicotine dependence; E78.00 Pure hypercholesterolemia, unspecified; I10 Essential (primary) hypertension; Z23 Encounter for immunization; W45.8XXA Other foreign body or object entering through skin, initial encounter; Z79.899 Other long term (current) drug therapy; K21.9 Gastro-esophageal reflux disease without esophagitis; Z86.718 Personal history of other venous thrombosis and embolism; Z79.01 Long term (current) use of anticoagulants; Z79.51 Long term (current) use of inhaled steroids; Z95.5 Presence of coronary angioplasty implant and graft; Z96.659 Presence of unspecified artificial knee joint; Z90.79 Acquired absence of other genital organ(s)
CPT/HCPCS: 73630; 90715; 99282

== ENCOUNTER → 2023-11-07 | Outpatient (CLI) | payer MEDICARE, OTHER, SELFPAY ==
--- NOTE | 2023-11-07 18:00 | RAD_ITS ---
INDICATION: STAT, atrial flutter -- atrial flutter, STAT EXAMINATION/TECHNIQUE: X-RAY - XR Chest 2 Views COMPARISON: Prior study dated: 12/02/2022 FINDINGS: LINES/DEVICES: None. LUNGS: The lungs are well expanded. Patchy opacities scattered in the right lung. No effusion or edema. No pneumothorax. MEDIASTINUM AND CARDIOVASCULAR STRUCTURES: Cardiac silhouette not enlarged. Central airways and mediastinal contour are unremarkable. BONES AND SOFT TISSUES: No acute abnormality. RAD/Chest PA and Lateral IMPRESSION: Patchy right lung opacities could be infectious or inflammatory. Electronically Signed: Chu Yeager MD at 18:27 EDT ,
== END | disposition home or self-care (01) ==
LOC: RAD 17:53
PROVIDERS: PCP Internal Medicine; Visit Provider Nurse Practitioner Family
DX: I48.92 Unspecified atrial flutter (principal)
CPT/HCPCS: 71046

== ENCOUNTER → 2023-11-23 | Outpatient (CLI) | payer MEDICARE, OTHER, SELFPAY ==
--- NOTE | 2023-11-23 09:59 | ECHOD_ITS ---
Reason For Study: AFIB Procedure This was a 2D Doppler, Color Flow transthoracic echocardiogram. Exam performed in department. Left Ventricle Normal LV size. The estimated ejection fraction is 53 %. No regional wall motion abnormalities noted. Right Ventricle Normal RV size. Normal systolic function. Atria The left atrium is mildly enlarged. Normal right atrium. Mitral Valve Normal mitral valve. Mild-Moderate (1-2+) eccentric mitral valve insufficiency. Tricuspid Valve Normal tricuspid valve. Mild (1+) tricuspid valve insufficiency. Pulmonary artery systolic pressure is 25 mmHg. Aortic Valve Trisinus/trileaflet aortic valve. Mild focal aortic valve calcification. Mild (1+) aortic valve insufficiency. Pulmonic Valve Normal pulmonic valve. Great Vessels Normal aortic root. The pulmonary artery is normal size. Normal inferior vena cava. Pericardium/Pleural No pericardial effusion. MMode/2D Measurements & Calculations LVIDd: 5.6 cm IVSd: 0.91 cm LVOT diam: 2.2 cm LVIDs: 3.9 cm LVPWd: 1.2 cm LVOT area: 3.8 cm2 RVDd: 4.0 cm FS: 30.5 % Ao root diam: 4.0 cm LAV(MOD-bp): 91.8 ml LVAd ap4: 37.2 cm2 LAV(MOD-bp) Indexed: 40.3 ml/m2 LVLd ap4: 9.4 cm LAV(MOD-sp2): 98.7 ml EDV(MOD-sp4): 125.2 ml LAV(MOD-sp4): 82.7 ml EDV(sp4-el): 124.9 ml LVAs ap4: 24.0 cm2 LVLs ap4: 8.4 cm ESV(MOD-sp4): 58.6 ml ESV(sp4-el): 58.2 ml EF(MOD-sp4): 53.2 % EF(sp4-el): 53.4 % SV(MOD-sp4): 66.6 ml SV(sp4-el): 66.7 ml LA A4 area: 26.2 cm2 LA dimension(2D): 4.6 cm RA A4 area: 20.8 cm2 Doppler Measurements & Calculations Ao V2 max: 178.8 cm/sec AI max janice: 437.3 cm/sec LV V1 max: 106.8 cm/sec Ao max P.0 mmHg AI max P.5 mmHg LV V1 max P.6 mmHg Ao V2 mean: 124.3 cm/sec LV V1 mean P.7 mmHg Ao mean P.1 mmHg AI dec slope: 173.8 cm/sec2 LV V1 mean: 76.7 cm/sec Ao V2 VTI: 33.2 cm AI P1/2t: 736.9 msec LV V1 VTI: 20.0 cm AV (velocity ratio): 0.60 CARA(I,D): 2.3 cm2 CARA(V,D): 2.3 cm2 SV(LVOT): 76.1 ml PA V2 max: 92.3 cm/sec TR max janice: 232.9 cm/sec PA V2 mean: 62.0 cm/sec TR max P.7 mmHg ECHO/Echo Complete Interpretation Summary Normal LV size. The estimated ejection fraction is 53 %. Mild-Moderate (1-2+) eccentric mitral valve insufficiency. Mild (1+) tricuspid valve insufficiency. Mild (1+) aortic valve insufficiency. Ordering Physician: Lyudmila Brewer Referring Physician: Lyudmila Brewer Performed By: Candy Tao RCS
== END | disposition home or self-care (01) ==
LOC: CVS 09:58
PROVIDERS: PCP Internal Medicine; Referring Provider Internal Medicine; Visit Provider Internal Medicine
DX: I48.92 Unspecified atrial flutter (principal); I48.91 Unspecified atrial fibrillation; I25.10 Atherosclerotic heart disease of native coronary artery without angina pectoris
CPT/HCPCS: 93306

== ENCOUNTER → 2023-12-10 | Outpatient (CLI) | payer MEDICARE, OTHER, SELFPAY | END | disposition home or self-care (01) | LOC: PSN 07:50 | PROVIDERS: PCP Internal Medicine; Referring Provider Internal Medicine; Visit Provider Internal Medicine | DX: I48.92 Unspecified atrial flutter (principal) | CPT/HCPCS: 93225; 93226 ==

== ENCOUNTER → 2024-01-01 | Outpatient (CLI) | payer MEDICARE, OTHER, SELFPAY ==
--- NOTE | 2024-01-01 18:13 | STRESSREP ---
Stress Test Report Pharmacologic myocardial perfusion stress test. 68-year-old male with a history of atrial flutter Resting EKG demonstrates atrial flutter with a rate of 137 bpm. Resting blood pressure is 128/77 mmHg. 0.4 mg of regadenoson was infused per usual protocol followed by rapid intravenous saline flush injection. Continuous EKG monitoring was performed. The maximum heart rate was 139 bpm which was 92% of max impacted heart rate the maximum workload was 1 metabolic equivalent. At rest there were no ST or T wave changes noted to suggest ischemia and at peak infusion nonspecific ST changes were noted which did not meet the criteria for ischemia. No clinical angina is noted. The final blood pressure was 120/90 mmHg. Myocardial perfusion protocol. 9.8 mCi of technetium 99m sestamibi was injected at rest. 0.4 mg of regadenoson was infused per usual protocol. At peak infusion 32.6 mCi of technetium 99m sestamibi was injected stress images were obtained stress and rest images were reconstructed and compared in the short axis vertical long and horizontal long axis. Gated images were also obtained. Perfusion SPECT analysis: Review of the stress images demonstrate normal uptake of tracer noted in all areas of the myocardium. Inferoseptal perfusion defect present. The resting images similar demonstrated normal uptake of tracer noted in all areas of the myocardium. Inferoseptal perfusion defect present. No areas of reversibility are noted to suggest ischemia and no previous infarct is noted. Gated SPECT analysis: The gated ejection fraction is 36%. Conclusion: Normal pharmacologic myocardial perfusion stress test. Reduced ejection fraction.
== END | disposition home or self-care (01) ==
LOC: CVS 07:01
PROVIDERS: PCP Internal Medicine; Referring Provider Internal Medicine Cardiovascular Disease; Visit Provider Internal Medicine Cardiovascular Disease
DX: I48.0 Paroxysmal atrial fibrillation (principal); I25.10 Atherosclerotic heart disease of native coronary artery without angina pectoris
CPT/HCPCS: 78452; 93017; A9500; A4216; J2785

== ENCOUNTER → 2024-01-04 | Outpatient (CLI) | payer MEDICARE, OTHER, SELFPAY ==
[2024-01-04 13:22] LABS: Anion Gap 8 (5-15); BUN 21 mg/dL (7-18); BUN/Creat Ratio 18.8 RATIO (10-20); Calcium,Total 9.3 mg/dL (8.5-10.1); Chloride 104 mmol/L (98-107); Creatinine, Serum 1.12 mg/dL (0.70-1.30); EST Glomerular Filtration Rate 69 mL/min (>60); Est Glom Filt Rate - Afr Amer 83 mL/min (>60); Glucose 100 mg/dL (74-106); Potassium 4.7 mmol/L (3.5-5.1); Sodium Level 136 mmol/L (136-145)
== END | disposition home or self-care (01) ==
LOC: MFPLAB 09:04
PROVIDERS: PCP Internal Medicine; Visit Provider Internal Medicine Cardiovascular Disease
DX: I10 Essential (primary) hypertension (principal); I48.0 Paroxysmal atrial fibrillation
CPT/HCPCS: 36415; 80048

== ENCOUNTER → 2024-01-14 | Day surgery (SDC) | payer MEDICARE, OTHER, SELFPAY ==
[2024-01-11 08:45] VITALS: BMI 31.9
--- NOTE | 2024-01-14 11:35 | PRO.PCM_ITS ---
Problems Associated Problem List Diagnoses (1) Paroxysmal atrial fibrillation: Non-invasive Procedure Procedure Information Procedure Performed:: DC cardioversion Surgeon/Practitioner: Paresh Delgado Date of Procedure: 01/14/24 Procedure Time Out: 11:10 Procedure Start Time: 11:15 Procedure Stop Time: 11:30 Pre-Procedure Diagnosis: Atrial fibrillation flutter Post-Procedure Diagnosis: Same Special Medications: Intravenous propofol 80 mg Fluids Replaced: Normal saline Description of procedure: Patient was brought to the cardiac catheterization lab in the postabsorptive nonsedated state. Informed consent was obtained. Anterior-posterior pads were applied. 80 mg of IV propofol was administered in aliquots initially with 50 mg and then 10 mg aliquots to a total of 80 mg. 200 J of synchronized DC biphasic energy were applied with prompt reversal to sinus rhythm. 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
== END | disposition home or self-care (01) ==
PROVIDERS: PCP Internal Medicine; Referring Provider Internal Medicine Cardiovascular Disease; Visit Provider Internal Medicine Cardiovascular Disease
DX: I48.0 Paroxysmal atrial fibrillation (principal); Z85.46 Personal history of malignant neoplasm of prostate; I25.10 Atherosclerotic heart disease of native coronary artery without angina pectoris; K21.9 Gastro-esophageal reflux disease without esophagitis; Z86.718 Personal history of other venous thrombosis and embolism; Z86.711 Personal history of pulmonary embolism; Z87.891 Personal history of nicotine dependence; R06.02 Shortness of breath; R53.83 Other fatigue; I10 Essential (primary) hypertension; Q23.1 Congenital insufficiency of aortic valve
CPT/HCPCS: 92960; 93005; J7040

== ENCOUNTER 2024-01-16 07:46 | Observation (INO) | payer MEDICARE, OTHER, SELFPAY ==
[2024-01-16] VITALS (17 sets, daily range): BP systolic 104–151; BP diastolic 49–71; PULSE 53–80; RESP 15–22; TEMP 36.1–36.9; O2SAT 88–96; BMI 33.2; BMI 32.8
--- NOTE | 2024-01-16 08:00 | EKG12_ITS ---
Test Reason : SOB Blood Pressure : */* mmHG Vent. Rate : 68 BPM Atrial Rate : 68 BPM P-R Int : 194 ms QRS Dur : 100 ms QT Int : 442 ms P-R-T Axes : 56 26 63 degrees QTcB Int : 469 ms Normal sinus rhythm Normal ECG Confirmed by BHARTI KHOURY ([id number]), deputy editor in chief LIYAH RIOJAS ([id number]) on 01/18/2024 12:04:06 PM Referred By: Confirmed By: BHARTI KHOURY
--- NOTE | 2024-01-16 08:00 | EDS_ITS ---
HPI History of Present Illness Chief Complaint: Shortness of Breath Informant: patient and spouse/S.O. Narrative Narrative: Worsening fatigue dyspnea since yesterday. States was wheezing yesterday. No significant cough. History of COPD no home oxygen. History of paroxysmal A- fib. Atrial fibrillation diagnosed 2 months ago with symptoms of fatigue. He had elective cardioversion 2 days ago followed by Dr. Delgado. He states he felt fine after procedure yesterday started having fatigue and dyspnea symptoms. He is on Eliquis he has been taking his medications. However felt symptoms only took his Toprol this morning however dyspnea continued therefore came to the ED. He did not take this morning's dose of Eliquis. Denies chest pains. Denies vomiting diarrhea. Denies any urinary symptoms. Patient reports that he just thinks he was hyperventilating. [facility] Medical History Atherosclerosis of coronary artery of [place] heart without angina pectoris Dupuytren contracture Fatty liver Paroxysmal atrial fibrillation GERD (gastroesophageal reflux disease) Osteoarthritis Bilateral pulmonary embolism Prostate CA Cluster B personality disorder Unspecified mood [affective] disorder Cancer History of steroid therapy Arthritis High cholesterol Pulmonary embolism DVT (deep venous thrombosis) Excessive bleeding Back pain Injury of back Former smoker COPD (chronic obstructive pulmonary disease) Leg cramps History of echocardiogram History of stress test Hypertension History of steroid therapy Home Medications ?Medication ?Instructions ?Recorded ?Last Taken ?Type omeprazole 40 mg capsule,delayed 40 mg PO DAILY gerd 07/22/19 01/15/24 History release apixaban 5 mg tablet 5 mg PO BID #120 tabs 08/02/19 01/16/24 Rx citalopram 40 mg tablet 40 mg PO QDAY 12/03/23 01/15/24 History cetirizine 10 mg tablet (Zyrtec) 10 mg PO DAILY Allergies 12/26/23 01/15/24 History cholecalciferol (vitamin D3) 125 125 mcg PO DAILY 12/26/23 01/15/24 History mcg (5,000 unit) tablet (Vitamin D3) diphenhydramine HCl 25 mg tablet 25 mg PO DAILY Allergies 12/26/23 01/15/24 History (Benadryl Allergy) aspirin 81 mg capsule 81 mg PO DAILY 01/14/24 01/15/24 History metoprolol succinate 100 mg 50 mg (1/2 x 100 mg) PO QDAY #90 01/14/24 01/16/24 Rx tablet,extended release 24 hr tabs (Toprol XL) morphine 15 mg tablet,extended 15 mg PO Q12.TCU 01/16/24 01/15/24 History release Allergy/AdvReac Type Severity Reaction Status Date / Time hydrocodone bitartrate (From AdvReac Itching Verified 01/16/24 07:47 Vicodin) Family History Other Alcoholism Surgical History Status post left knee replacement History of cardiac catheterization History of coronary artery stent placement (08/20/14) Hx of total knee replacement Hx of colonoscopy Hx of prostatectomy History of back surgery Hx of arthroscopy of shoulder Hx of elbow surgery Hx of left knee surgery Hx of right knee surgery Hx of surgical procedure Social History Smoking Status: Former smoker alcohol intake: former substance use type: does not use ROS ROS ED Constitutional Constitutional ED: Denies chills, fever(s) or sweats Eyes Eyes: Denies change in vision ENT ENT ED: Denies dysphagia or sore throat Cardiovascular Cardiovascular: Reports orthopnea; Denies chest pain, leg edema, palpitations or racing heartbeat Respiratory/Chest Respiratory/Chest: Reports cough, dyspnea and orthopnea; Denies dyspnea on exertion Gastrointestinal Gastrointestinal: Denies abdominal pain, diarrhea, nausea or vomiting Genitourinary Genitourinary ED: Denies dysuria, hematuria or urinary frequency Musculoskeletal Musculoskeletal: Denies back pain, extremity pain or neck pain Integumentary Denies rash or wounds Neurologic Neurologic: Denies headache(s), paresthesias or weakness EXAM Physical Exam Const Vital Signs: 01/16/24 07:47 01/16/24 08:00 01/16/24 08:05 Temperature 96.9 F L Temperature Source Temporal Pulse Rate 55 L Respiratory Rate 22 H Respiratory Effort Respiratory Depth Respiratory Pattern Blood Pressure 117/69 Blood Pressure Mean 85 Pulse Ox 95 88 92 Oxygen Delivery Method Room Air Room Air Nasal Cannula Oxygen Flow Rate (L/min) 3 01/16/24 08:10 01/16/24 08:11 01/16/24 08:46 Temperature Temperature Source Pulse Rate 78 Respiratory Rate 20 H Respiratory Effort Short of Breath Labored Respiratory Depth Normal Respiratory Pattern Normal Blood Pressure 127/68 H Blood Pressure Mean 87 Pulse Ox 91 92 Oxygen Delivery Method Nasal Cannula Nasal Cannula Nasal Cannula Oxygen Flow Rate (L/min) 3 3 3 01/16/24 08:55 01/16/24 09:00 Temperature Temperature Source Pulse Rate 57 L 58 L Respiratory Rate 18 20 H Respiratory Effort Respiratory Depth Respiratory Pattern Normal Blood Pressure 151/58 H Blood Pressure Mean 89 Pulse Ox 94 Oxygen Delivery Method Nasal Cannula Oxygen Flow Rate (L/min) 3 Positive well nourished and well developed General Appearance ED: well developed and NAD HEENT Reports moist mucous membranes normocephalic and atraumatic Eyes EOMs intact bilaterally and conjunctivae normal General Eye ED: Yes normal appearance of both eyes Neck no lymphadenopathy and supple General: Negative for tenderness Chest Wall Chest: Negative for tenderness Resp normal respiratory effort and normal air movement Effort and Inspection: symmetric chest movement; Negative for respiratory distress Cardio regular rate, regular rhythm and no murmurs Peripheral Pulses: pulses 2+ throughout GI normal to inspection, nondistended, normoactive bowel sounds and non-tender Palpation: Negative for guarding or rebound tenderness present Back/Spine no CVA tenderness and no thoracic nor lumbar tenderness Extremity normal to inspection General Extremety ED: Negative for edema or tenderness General Extremity: Negative for edema Neuro oriented x3 and no sensory deficits noted Sensorium / Orientation: awake and alert Skin no rashes or lesions noted and no wounds MDM MDM MDM Narrative Medical decision making narrative: Interventions / MDM: Differential diagnosis: Acute CHF, dyspnea, hypoxia, COPD Diagnosis considered but do not suspect: Pulm embolism however chronic anticoagulation. My EKG interpretation: Sinus rate of 68, no ST changes, T wave inversion V1,V2. Imaging independently reviewed and interpreted by myself: N/A External documents reviewed: Reviewed cardiology note 12/26/2023, seen for atrial flutter chronic Eliquis secondary to recurrent pulmonary embolism. He had metoprolol added. History of coronary disease with stenting. He had recommended nuclear stress test performed 01/01/2024. There was noted inferior septal defect, known EF of 36%. Test considered but not ordered:N/A ED course: Reports increasing dyspnea. EKG currently sinus rhythm. Will check nasal swab chest x-ray labs. Will give his morning Eliquis dose. During evaluation pulse ox was 88% with good waveforms. He was placed on nasal cannula. 0830: Reviewing his cardiology records noted EF 36% from his nuclear stress test. I added BNP. His two-view chest x-ray concerns for vascular congestion. Reevaluate patient has some lower lobe wheezing posteriorly. DuoNeb treatment given. He has been reporting orthopnea symptoms the last couple days. No second cough symptoms or concerns for pneumonia. Will start Lasix. Will discuss with hospitalist service for admission due to hypoxia. 0900: Spoke with Dr. Stover for admission to PCU. Re-evaluation: stable Disposition discussed with patient/family/significant other: Patient and significant other Case discussed with consulting clinician: Hospitalist This note was generated with [employer] dictation software. It may contain incorrect words, spelling, and punctuation that were not noted in checking the note before signing. Lab Data Attestation: I reviewed the patient's lab results. Labs: Laboratory Results - last 24 hr 01/16/24 01/16/24 08:03 08:10 WBC 9.2 RBC 4.36 L Hgb 13.6 Hct 40.8 MCV 93.6 MCH 31.2 MCHC 33.3 RDW Std Deviation 44.0 H RDW Coeff of Doug 12.8 Plt Count TNP MPV 10.6 Immature Gran % (Auto) 0.900 Neut % (Auto) 74.3 H Lymph % (Auto) 13.0 L [place] % (Auto) 9.8 Eos % (Auto) 1.6 Baso % (Auto) 0.4 Absolute Neuts (auto) 6.8 Absolute Lymphs (auto) 1.20 Nucleated RBC % 0 Platelet Estimate SLT DEC Sodium 134 L Potassium 5.2 H Chloride 107 Carbon Dioxide 22.0 Anion Gap 5 BUN 22 H Creatinine 1.16 Estim Creat Clear Calc 78.43 Est GFR (MDRD) Af Amer 80 Est GFR (MDRD) Non-Af 66 BUN/Creatinine Ratio 19.0 Glucose 109 H Calcium 9.8 Magnesium 1.9 B-Natriuretic Peptide 219.8 H Radiography Diagnostic Testing: Clinical Impression(s) from Imaging Studies Chest X-Ray 01/16/24 08:15 IMPRESSION: Increased interstitial markings more prominent at the lung bases. Mild degree of CHF should be ruled out. Electronically Signed: Vasquez Smith MD at 9:14 EST , Discharge Plan Dx/Rx/DC Orders Clinical Impression: Acute CHF, Paroxysmal atrial fibrillation, Hypoxia, COPD exacerbation, Wheezing Disposition Disposition: Acute Care Hospital [facility] Discharge Date/Time: 01/16/24 09:36
[2024-01-16] MEDS: APIXABAN 5 MG TABLET PO ×2 (08:08→22:24)
[2024-01-16] MEDS: predniSONE 20 MG Tablet 60 MG PO (08:08)
[2024-01-16 08:15] LABS: Absolute Neutrophil Count 6.8 X10^3/uL (2.0-7.7); Basophil# 0.04 X10^3/uL; Basophil% 0.4 % (0-1); Eosinophil# 0.15 X10^3/uL; Eosinophils% 1.6 % (0-5); Hematocrit 40.8 % (40-54); Hemoglobin 13.6 g/dL (13.0-16.5); Mean Corp Hgb Conc 33.3 g/dL (32-36); Mean Corpuscular Hgb 31.2 pg (27.0-32.0); Mean Corpuscular Volume 93.6 fL (80-94); Mean Platelet Vol. 10.6 fl (6.2-12.0); Monocyte% 9.8 % (0-10); NRBC Flagged by Analyzer 0 % (0-5); Neutrophil # 6.83 X10^3/uL (2.7-7.7); Neutrophil % 74.3 % (47-70); POSITIVE COUNT YES; RBC Distribution Width CV 12.8 % (11.6-14.6); Red Blood Count 4.36 M/mm3 (4.6-6.2); White Blood Count 9.2 K/mm3 (4.4-11.0)
--- NOTE | 2024-01-16 08:15 | RAD_ITS ---
STUDY: X-RAY CHEST REASON FOR EXAM: Male, 68 years old. Sob TECHNIQUE: PA and lateral views of the chest. COMPARISON: Comparison is made with prior study dated November 07, 2023. FINDINGS: EKG electrodes are seen. Since prior study, there is evidence of increased interstitial markings more prominent at the lung bases. Mild degree of CHF should be ruled out. Follow up recommended. Hyperinflation. There is no demonstrated pleural abnormality. Normal size heart. Normal mediastinum and trevor. Normal visualized pulmonary arteries. There is atherosclerotic calcification of the aortic arch with tortuosity. There are diffuse degenerative changes of the visualized thoracic spine. Normal visualized ribs, clavicles, and shoulders. There is no demonstrated abnormality of the visualized soft tissue structures of the upper abdomen. RAD/Chest PA and Lateral IMPRESSION: Increased interstitial markings more prominent at the lung bases. Mild degree of CHF should be ruled out. Electronically Signed: Vasquez Smith MD at 9:14 EST ,
[2024-01-16 08:31] LABS: Anion Gap 5 (5-15); BUN 22 mg/dL (7-18); Calcium,Total 9.8 mg/dL (8.5-10.1); Chloride 107 mmol/L (98-107); Creatinine, Serum 1.16 mg/dL (0.70-1.30); EST Glomerular Filtration Rate 66 mL/min (>60); Est Glom Filt Rate - Afr Amer 80 mL/min (>60); Estimated Creatinine Clearance 78.43 ml/min; Glucose 109 mg/dL (74-106); Potassium 5.2 mmol/L (3.5-5.1); Sodium Level 134 mmol/L (136-145)
[2024-01-16 08:48] LABS: Differential Indicated SCAN CRITERIA MET
[2024-01-16 08:50] LABS: Platelet Estimate SLT DEC (ADEQ)
[2024-01-16] MEDS: Furosemide 40 MG/4 ML Vial IV ×2 (08:55→17:50)
[2024-01-16] MEDS: Ipratropium/Albuterol Sulfate 3 ML AMPUL.NEB INHALATION ×3 (08:57→23:35)
--- NOTE | 2024-01-16 09:05 | ED.RN ---
unable to complete med rec d/t other user in chart
--- NOTE | 2024-01-16 09:07 | PCM.HP.STD ---
HPI - General General Date of Admission: 01/16/24 Date of Service: 01/16/24 Chief Complaint: Worsening shortness of breath for 2 days. Mild wheezing HPI Narrative KIERSTEN ANDREA, is a 68 M who came to ED as he was having difficulty in breathing/shortness of breath for 2 days. He stated he could not sleep last night. Patient has paroxysmal A-fib and was cardioverted by Dr. Delgado on 01/14/2024. He denies any chest pain pressure or tightness. He further said he had fluids buildup in the lungs about 2 months ago and was probably due to A-fib therefore he was cardioverted. Patient not on home oxygen or NIPPV. He said he saw build master Dr. Alpesh Parisi and he does not have COPD but has mild wheezing for last 2 to 3 days. Denies URI symptoms including sore throat or postnasal drip or fever. In ER the ED was found dyspneic and hypoxic and required 3 L of oxygen. Vitals in the ED shows heart rate 55/min, RR 22/min pulse ox 88% on room air. Patient was given IV Lasix, prednisone and Eliquis and further admitted [facility] Medical History Atherosclerosis of coronary artery of [place] heart without angina pectoris Dupuytren contracture Fatty liver Paroxysmal atrial fibrillation GERD (gastroesophageal reflux disease) Osteoarthritis Bilateral pulmonary embolism Prostate CA Cluster B personality disorder Unspecified mood [affective] disorder Cancer History of steroid therapy Arthritis High cholesterol Pulmonary embolism DVT (deep venous thrombosis) Excessive bleeding Back pain Injury of back Former smoker COPD (chronic obstructive pulmonary disease) Leg cramps History of echocardiogram History of stress test Hypertension History of steroid therapy Home Medications ?Medication ?Instructions ?Recorded ?Last Taken ?Type omeprazole 40 mg capsule,delayed 40 mg PO DAILY gerd 07/22/19 01/15/24 History release apixaban 5 mg tablet 5 mg PO BID #120 tabs 08/02/19 01/16/24 Rx citalopram 40 mg tablet 40 mg PO QDAY 12/03/23 01/15/24 History cetirizine 10 mg tablet (Zyrtec) 10 mg PO DAILY Allergies 12/26/23 01/15/24 History cholecalciferol (vitamin D3) 125 125 mcg PO DAILY 12/26/23 01/15/24 History mcg (5,000 unit) tablet (Vitamin D3) diphenhydramine HCl 25 mg tablet 25 mg PO DAILY Allergies 12/26/23 01/15/24 History (Benadryl Allergy) aspirin 81 mg capsule 81 mg PO DAILY 01/14/24 01/15/24 History metoprolol succinate 100 mg 50 mg (1/2 x 100 mg) PO QDAY #90 01/14/24 01/16/24 Rx tablet,extended release 24 hr tabs (Toprol XL) morphine 15 mg tablet,extended 15 mg PO Q12.TCU 01/16/24 01/15/24 History release Allergy/AdvReac Type Severity Reaction Status Date / Time hydrocodone bitartrate (From AdvReac Itching Verified 01/16/24 07:47 Vicodin) Family History Other Alcoholism Surgical History Status post left knee replacement History of cardiac catheterization History of coronary artery stent placement (08/20/14) Hx of total knee replacement Hx of colonoscopy Hx of prostatectomy History of back surgery Hx of arthroscopy of shoulder Hx of elbow surgery Hx of left knee surgery Hx of right knee surgery Hx of surgical procedure Social History Smoking Status: Former smoker alcohol intake: former substance use type: does not use ROS ROS Narrative Constitutional: Reports fatigue and weakness. No fever. HEENT: Reports systems reviewed and no addt'l complaints, except as documented Respiratory/Chest: As described in HPI CVS: As described in HPI Gastrointestinal: Denies coffee ground emesis, hematemesis or vomiting Genitourinary: Denies burning urination or new urinary tract symptoms Musculoskeletal: Denies acute joint pain or limited range of motion. No acute injury Spine: Lumbar spine surgery in the past. Neurologic: Denies seizure-like symptoms. skin: No ulcer. No rash Endocrinology: Reports systems reviewed and no addt'l complaints, except as documented Hematologic/Lymphatic: Reports systems reviewed and no addt'l complaints, except as documented Rest 14 ROS are negative except as mentioned in HPI Vital Signs Vital Signs Vital Signs: 01/16/24 07:47 01/16/24 08:00 01/16/24 08:05 Temperature 96.9 F L Temperature Source Temporal Pulse Rate 55 L Respiratory Rate 22 H Respiratory Effort Respiratory Depth Respiratory Pattern Blood Pressure 117/69 Blood Pressure Mean 85 Pulse Ox 95 88 92 Oxygen Delivery Method Room Air Room Air Nasal Cannula Oxygen Flow Rate (L/min) 3 01/16/24 08:10 01/16/24 08:11 01/16/24 08:46 Temperature Temperature Source Pulse Rate 78 Respiratory Rate 20 H Respiratory Effort Short of Breath Labored Respiratory Depth Normal Respiratory Pattern Normal Blood Pressure 127/68 H Blood Pressure Mean 87 Pulse Ox 91 92 Oxygen Delivery Method Nasal Cannula Nasal Cannula Nasal Cannula Oxygen Flow Rate (L/min) 3 3 3 01/16/24 08:55 01/16/24 09:00 01/16/24 09:04 Temperature 97.6 F L Temperature Source Pulse Rate 57 L 58 L 58 L Respiratory Rate 18 20 H 20 H Respiratory Effort Respiratory Depth Respiratory Pattern Normal Blood Pressure 151/58 H 151/58 H Blood Pressure Mean 89 89 Pulse Ox 94 94 Oxygen Delivery Method Nasal Cannula Oxygen Flow Rate (L/min) 3 01/16/24 09:05 Temperature 97.6 F L Temperature Source Temporal Pulse Rate 53 L Respiratory Rate 20 H Respiratory Effort Respiratory Depth Respiratory Pattern Blood Pressure 151/58 H Blood Pressure Mean 89 Pulse Ox 92 Oxygen Delivery Method Nasal Cannula Oxygen Flow Rate (L/min) 3 Weight Weight: 251 lb 8.759 oz Body Mass Index (BMI) 33.2 Physical Exam Narrative General: Alert, Oriented x3, Cooperative HEENT: Atraumatic, PERRLA, EOMI, Normocephalic Oral: Oral mucosa dry. No Gingival or Mucosal Lesions/ Ulcerations Neck: Supple, No JVD, Negative Carotid Bruits Chest wall/Lungs: Air entry diminished in bilateral lung bases. No crepitation/rhonchi Cardiovascular: Sinus rhythm, Normal S1, Normal S2, soft systolic murmur LLSB and cardiac apex. Abdomen: Bowel Sounds Present, Soft, Non Tender, Non-Distended : No dysuria. No renal angle tenderness. No suprapubic tenderness. Extremities: No edema, Capillary Refill Less than 3 Seconds Skin: No rashes, No breakdown Musculoskeletal: No Tenderness to Palpation of Joints or Extremities. Lumbar surgical scar. No tenderness in the spine. Neurological: Cranial nerves II-XII grossly intact, DTR 2+/4. No acute focal neurological deficit. Psych/Mental Status: Normal Affect, Appropriate. Results Lab / Micro Data 01/16/24 08:03 01/16/24 08:03 Labs: Laboratory Results - last 24 hr 01/16/24 08:03: WBC 9.2, RBC 4.36 L, Hgb 13.6, Hct 40.8, MCV 93.6, MCH 31.2, MCHC 33.3, RDW Std Deviation 44.0 H, RDW Coeff of Doug 12.8, Plt Count TNP, MPV 10.6, Immature Gran % (Auto) 0.900, Neut % (Auto) 74.3 H, Lymph % (Auto) 13.0 L, [place] % (Auto) 9.8, Eos % (Auto) 1.6, Baso % (Auto) 0.4, Absolute Neuts (auto) 6.8, Absolute Lymphs (auto) 1.20, Nucleated RBC % 0, Platelet Estimate SLT DEC, Sodium 134 L, Potassium 5.2 H, Chloride 107, Carbon Dioxide 22.0, Anion Gap 5, BUN 22 H, Creatinine 1.16, Estim Creat Clear Calc 78.43, Est GFR (MDRD) Af Amer 80, Est GFR (MDRD) Non-Af 66, BUN/Creatinine Ratio 19.0, Glucose 109 H, Calcium 9.8 Micro: Microbiology 01/16/24 08:02 Mucosa - Nose SARS-CoV-2, Influenza & RSV (PCR) - Final Assessment & Plan Assessment/Plan (1) Acute on chronic heart failure with preserved ejection fraction (HFpEF): PLAN: Plan This is 68-year-old gentleman came to ED with primary complaint of shortness of breath for 2 days, not able to sleep. 1. Acute dyspnea and hypoxia due to acute on chronic HFpEF: Patient is being admitted in PCU. Twelve-lead EKG initially reviewed and shows NSR at 68 bpm, QTc 469 ms. Previous EKG of 01/14/2024 shows atrial flutter 2 is to 1 block. Chest x-ray initially reviewed and shows interstitial markings prominent at lung bases suggestive of mild venous congestion. Started on furosemide 40 mg IV twice daily. Heart failure core measures. Recent echo as mentioned below shows 1-2+ eccentric MR and mild TR. Pharmacological nuclear stress test was reported normal on 01/01/2024 2. Paroxysmal A-fib on Eliquis: 3. Hypertension: BP is in normal range. Hold for SBP less than 130 mmHg 4. History of pulmonary embolism in July 2019 of right interlobar artery. Patient completed Eliquis and again on Eliquis for A-fib. 5. Dyspnea, wheezing with history of right upper lobe lung mass: CT-guided core biopsy shows mild fibrosis with no evidence of malignancy. Patient had bronchoscopy and BAL by Dr. Clements which also does not show evidence of malignancy. Unclear whether patient has COPD or other chronic lung disease but he denies it as told by Dr. Alpesh Parisi. He was a former smoker. Patient is wheezing therefore started on bronchodilator, IV Solu-Medrol, azithromycin, incentive spirometry and Pep. Triple PCR for SARS-CoV-2, flu and RSV are negative. Respiratory panel ordered 6. Other chronic comorbidities include anxiety, depression, cluster B personality disorder: Follows Dr. Hilliard. Hold escitalopram as patient is on azithromycin. DVT prophylaxis: On Eliquis Living will/advanced directive/end of life care: Patient does have living will or advanced directive. He has power of commercial attorney for health to his . After discussion of benefits/risks procedures involved with full code, DNR CC arrest and DNR CC, the patient opted for DNR CC arrest with no interval Patient doesn't want artificial life support including intubation, tube feed, ventilator and/chest compression, central venous catheter, vasopressor and DC shock if needed Total time spent in [id number] encounter in discussion of advanced directive 17 minutes. Clinical Impression(s) from Imaging Studies Chest X-Ray 01/16/24 08:15 IMPRESSION: Increased interstitial markings more prominent at the lung bases. Mild degree of CHF should be ruled out. Echo 11/23/2023 Interpretation Summary Normal LV size. The estimated ejection fraction is 53 %. Mild-Moderate (1-2+) eccentric mitral valve insufficiency. Mild (1+) tricuspid valve insufficiency. Mild (1+) aortic valve insufficiency. Charges/Coding Visit Charges Inpatient E&M: 43624 Init Hosp L3 Procedures Hospitalists Procedures: 02971 Advncd Care Plan 30 Min
[2024-01-16 09:27] LABS: Magnesium 1.9 mg/dL (1.6-2.6)
[2024-01-16 10:41] LABS: BNP,B-Type NATRIURETIC PEPTIDE 219.8 pg/mL (0-100)
[2024-01-16] MEDS: Azithromycin 250 MG Tablet 500 MG PO (10:47)
[2024-01-16] MEDS: Senna/Docusate Sodium 1 Tablet 2 TABLET PO (10:47)
[2024-01-16] MEDS: guaiFENesin/D-Methorphan TAB.SR.12H 2 TABLET PO ×2 (10:48→22:25)
[2024-01-16] MEDS: ALPRAZolam 0.5 MG Tablet PO (10:48)
[2024-01-16 10:54] LABS: Troponin-I HS 49 pg/mL (3.0-78.0)
[2024-01-16 12:12] LABS: Troponin-I HS 51 pg/mL (3.0-78.0)
[2024-01-16] MEDS: 0.9% Saline Lock 10 ML Syringe IV ×3 (14:00→22:24)
[2024-01-16 15:48] LABS: Troponin-I HS 31 pg/mL (3.0-78.0)
[2024-01-16] MEDS: busPIRone 5 MG Tablet 10 MG PO (22:24)
[2024-01-17] VITALS (7 sets, daily range): BP systolic 111–140; BP diastolic 67–76; PULSE 70–97; RESP 18–20; TEMP 36.4–36.8; O2SAT 94–97; BMI 33.0
[2024-01-17 06:48] LABS: Absolute Lymphocyte Count 0.92 X10^3/uL (0.83-4.51); Absolute Neutrophil Count 12.2 X10^3/uL (2.0-7.7); Basophil# 0.01 X10^3/uL; Basophil% 0.1 % (0-1); Hematocrit 41.9 % (40-54); Hemoglobin 14.1 g/dL (13.0-16.5); Lymphocyte # 0.92 X10^3/ul (0.83-4.51); Lymphocyte % 6.7 % (19-41); Mean Corp Hgb Conc 33.7 g/dL (32-36); Mean Corpuscular Hgb 31.3 pg (27.0-32.0); Mean Corpuscular Volume 92.9 fL (80-94); Mean Platelet Vol. 9.1 fl (6.2-12.0); Monocyte# 0.38 X10^3/uL; Monocyte% 2.8 % (0-10); NRBC Flagged by Analyzer 0 % (0-5); Neutrophil # 12.23 X10^3/uL (2.7-7.7); Neutrophil % 89.7 % (47-70); Platelet Count 237 K/mm3 (150-450); RBC Distribution Width CV 12.9 % (11.6-14.6); RBC Distribution Width SD 43.8 fl (35.1-43.9); Red Blood Count 4.51 M/mm3 (4.6-6.2); White Blood Count 13.6 K/mm3 (4.4-11.0)
[2024-01-17 07:30] LABS: Anion Gap 10 (5-15); BUN 30 mg/dL (7-18); BUN/Creat Ratio 22.9 RATIO (10-20); Chloride 104 mmol/L (98-107); Cholesterol 202 mg/dL (200); Creatinine, Serum 1.31 mg/dL (0.70-1.30); EST Glomerular Filtration Rate 58 mL/min (>60); Est Glom Filt Rate - Afr Amer 70 mL/min (>60); Glucose 160 mg/dL (74-106); High Density Lipoprotein 78 mg/dL; Potassium 4.1 mmol/L (3.5-5.1); Sodium Level 136 mmol/L (136-145); Thyroid Stim Hormone (TSH) 0.717 uIU/mL (0.358-3.740); Triglycerides 56 mg/dL; Very Low Density Lipoprotein 11 mg/dL (5-40)
[2024-01-17] MEDS: Ipratropium/Albuterol Sulfate 3 ML AMPUL.NEB INHALATION ×2 (07:36→10:52)
[2024-01-17] MEDS: Cholecalciferol (Vit D3) 125 MCG CAPSULE (5,000 UNITS) PO (08:11)
[2024-01-17] MEDS: Aspirin 81 MG TAB.CHEW PO (08:11)
--- NOTE | 2024-01-17 09:34 | DCINST_ITS ---
Discharge Instructions Diet Discharge Diet: No restrictions, Low fat / Low cholesterol, 8 Cup Fluid Restriction and 2000 mg Sodium Diet Activity Discharge Activity: Return to Normal Activity Weight Bearing Status: Weight bearing as tolerated Dressing / Incision Call your doctor if you observe: Fever of 101 or Higher, Coldness, Increased Pain, Numbness or Tingling, Change in Color, Inability to urinate, Inability to have a bowel movement, Shortness of breath, Dizziness, Fainting spells, Swelling in the ankles, Chest pain, Prolonged hiccupping, Increased palpitations (irregular heartbeat) and Calf discomfort Follow Up Care When: IN 2 WEEKS Test Results: Test results from this visit will be discussed in further detail at your follow- up appointment, if applicable. Discharge Plan Admission Admit Date/Time: 01/16/24 09:02 Primary Reason for Your Visit: Acute on chronic Attending Provider: Carter Stover Primary Care Provider: Lyudmila Brewer Discharge Orders/Prescriptions Prescriptions: No Action citalopram 40 mg tablet 40 mg PO QDAY cholecalciferol (vitamin D3) [Vitamin D3] 125 mcg (5,000 unit) tablet 125 mcg PO DAILY cetirizine [Zyrtec] 10 mg tablet 10 mg PO DAILY diphenhydramine HCl [Benadryl Allergy] 25 mg tablet 25 mg PO DAILY omeprazole 40 MG capsule,delayed release(DR/EC) 40 mg PO DAILY apixaban 5 MG tablet 5 mg PO BID Qty: 120 0RF aspirin 81 mg capsule 81 mg PO DAILY morphine 15 mg tablet extended release 15 mg PO Q12.TCU metoprolol succinate [Toprol XL] 100 mg tablet extended release 24 hr 50 mg PO QDAY Qty: 90 4RF Referrals / Follow Up: Lyudmila Brewer DO [Primary Care Provider] - (Office will call you with an appointment, please watch for their phone call. If you do not hear anything from them in 2-3 business days, please contact the office. ) Disposition Disposition (needs filled in before D/C Order can be placed): Home, Self Care
--- NOTE | 2024-01-17 09:35 | DS.PCM_ITS ---
Providers Date of Admission: 01/16/24 Date of Discharge: 01/17/24 Primary Care Physician: Dr. Lyudmila Brewer DO Reason For Visit: HF EXACERBATION Diagnosis Discharge Diagnosis (1) Acute on chronic heart failure with preserved ejection fraction (HFpEF): Status: Acute Code(s): I50.33 - Acute on chronic diastolic (congestive) heart failure Plan This is 68-year-old gentleman came to ED with primary complaint of shortness of breath for 2 days, not able to sleep. 1. Acute dyspnea and hypoxia due to acute on chronic HFpEF: Patient is being admitted in PCU. Twelve-lead EKG initially reviewed and shows NSR at 68 bpm, QTc 469 ms. Previous EKG of 01/14/2024 shows atrial flutter 2 is to 1 block. Chest x-ray initially reviewed and shows interstitial markings prominent at lung bases suggestive of mild venous congestion. Started on furosemide 40 mg IV twice daily. Heart failure core measures including intake and output, fluid restriction less than 1500 mL, daily weight monitoring, kidney and electrolytes monitoring. Recent echo as mentioned below shows 1-2+ eccentric MR and mild TR. Pharmacological nuclear stress test was reported normal on 01/01/2024. 01/16: Patient dyspnea has resolved. He wants to go home. Pulse ox 97% on room air. Blood pressure 140/76. Lungs clear. Patient is discharged on furosemide 40 mg daily. Patient creatinine increased to 1.31 from 1.16 therefore furosemide frequency was decreased to 40 mg once daily. Does not meet the criteria for DANIELA. Educated about the fluid restriction and low-salt diet and medication adherence. Discussed with the patient's in the room. 2. Paroxysmal A-fib on Eliquis: 3. Hypertension: BP is in normal range. Hold for SBP less than 130 mmHg 4. History of pulmonary embolism in July 2019 of right interlobar artery. Patient completed Eliquis and again on Eliquis for A-fib. 5. Dyspnea, wheezing with history of right upper lobe lung mass: CT-guided core biopsy shows mild fibrosis with no evidence of malignancy. Patient had bronchoscopy and BAL by Dr. Clements which also does not show evidence of malignancy. Unclear whether patient has COPD or other chronic lung disease but he denies it as told by Dr. Alpesh Parisi. He was a former smoker. Patient is wheezing therefore started on bronchodilator, IV Solu-Medrol, azithromycin, incentive spirometry and Pep. Triple PCR for SARS-CoV-2, flu and RSV are negative. Respiratory panel ordered 6. Other chronic comorbidities include anxiety, depression, cluster B personality disorder: Follows Dr. Hilliard. Hold escitalopram as patient is on azithromycin. DVT prophylaxis: On Eliquis Discharge medication reconciliation done. Discharge follow-up instructions completed. Discharge process discussed with the patient and all questions were answered to patient's satisfaction. Follow with PCP in 1 to 2 weeks Total time spent, exact 35 minutes on discharge meds reconciliation, examination, coordination of care with nurses and ancillary staff, review of imaging and blood test and discussion with the patient on follow-up instructions. Living will/advanced directive/end of life care: Patient does have living will or advanced directive. He has power of consumer attorney for health to his . After discussion of benefits/risks procedures involved with full code, DNR CC arrest and DNR CC, the patient opted for DNR CC arrest with no interval Patient doesn't want artificial life support including intubation, tube feed, ventilator and/chest compression, central venous catheter, vasopressor and DC shock if needed Total time spent in [id number] encounter in discussion of advanced directive 17 minutes. Clinical Impression(s) from Imaging Studies Chest X-Ray 01/16/24 08:15 IMPRESSION: Increased interstitial markings more prominent at the lung bases. Mild degree of CHF should be ruled out. Echo 11/23/2023 Interpretation Summary Normal LV size. The estimated ejection fraction is 53 %. Mild-Moderate (1-2+) eccentric mitral valve insufficiency. Mild (1+) tricuspid valve insufficiency. Mild (1+) aortic valve insufficiency. Medications at Discharge Home Medications omeprazole 40 mg capsule,delayed release 40 mg PO DAILY gerd 07/22/19 apixaban 5 mg tablet 5 mg PO BID blood thinner #120 tabs 08/02/19 citalopram 40 mg tablet 40 mg PO QDAY mental health 12/03/23 cetirizine 10 mg tablet (Zyrtec) 10 mg PO DAILY Allergies 12/26/23 cholecalciferol (vitamin D3) 125 mcg (5,000 unit) tablet (Vitamin D3) 125 mcg PO DAILY vitamin 12/26/23 diphenhydramine HCl 25 mg tablet (Benadryl Allergy) 25 mg PO DAILY Allergies 12/26/23 aspirin 81 mg capsule 81 mg PO DAILY heart health 01/14/24 metoprolol succinate 100 mg tablet,extended release 24 hr (Toprol XL) 50 mg (1/2 x 100 mg) PO QDAY blood pressure #90 tabs 01/14/24 morphine 15 mg tablet,extended release 15 mg PO Q12.TCU pain 01/16/24 dextromethorphan-guaifenesin ER 60 mg-1,200 mg tab,extend release,12hr 1 tab PO BID 7 days #14 tabs 01/17/24 furosemide 40 mg tablet 40 mg PO DAILY 1 month #30 tabs 01/17/24 Physical Exam Narrative Seen and examined. Patient not short of breath. No chest pain. Wants to go home. Physical exam General: Alert, Oriented x3, Cooperative HEENT: Atraumatic, PERRLA, EOMI, Normocephalic Oral: Oral mucosa moist. No Gingival or Mucosal Lesions/ Ulcerations Neck: Supple, No JVD, Negative Carotid Bruits Chest wall/Lungs: Air entry diminished in bilateral lung bases. No crepitation/rhonchi Cardiovascular: Sinus rhythm, Normal S1, Normal S2, soft systolic murmur LLSB and cardiac apex. Abdomen: Bowel Sounds Present, Soft, Non Tender, Non-Distended : No dysuria. No renal angle tenderness. No suprapubic tenderness. Extremities: No edema, Capillary Refill Less than 3 Seconds Skin: No rashes, No breakdown Musculoskeletal: No Tenderness to Palpation of Joints or Extremities. Lumbar surgical scar. No tenderness in the spine. Neurological: Cranial nerves II-XII grossly intact, DTR 2+/4. No acute focal neurological deficit. Psych/Mental Status: Normal Affect, Appropriate. Weight / BMI Weight Weight: 250 lb 7.122 oz Body Mass Index (BMI) 33.0 ABG / Lab / Microbiology Data 01/17/24 06:15 01/17/24 06:15 Laboratory: Laboratory Results - last 24 hr 01/16/24 08:10: B-Natriuretic Peptide 219.8 H 01/16/24 10:05: Troponin I High Sens 49 01/16/24 11:43: Troponin I High Sens 51 01/16/24 15:15: Troponin I High Sens 31 01/17/24 06:15: WBC 13.6 H, RBC 4.51 L, Hgb 14.1, Hct 41.9, MCV 92.9, MCH 31.3, MCHC 33.7, RDW Std Deviation 43.8, RDW Coeff of Doug 12.9, Plt Count 237, MPV 9.1, Immature Gran % (Auto) 0.700, Neut % (Auto) 89.7 H, Lymph % (Auto) 6.7 L, [place] % (Auto) 2.8, Eos % (Auto) 0.0, Baso % (Auto) 0.1, Absolute Neuts (auto) 12.2 H, Absolute Lymphs (auto) 0.92, Nucleated RBC % 0, Sodium 136, Potassium 4.1, Chloride 104, Carbon Dioxide 23.0, Anion Gap 10, BUN 30 H, Creatinine 1.31 H, Estim Creat Clear Calc 69.30, Est GFR (MDRD) Af Amer 70, Est GFR (MDRD) Non- Af 58 L, BUN/Creatinine Ratio 22.9 H, Glucose 160 H, Calcium 10.0, Triglycerides 56, Cholesterol 202 H, LDL Cholesterol 113, VLDL Cholesterol 11, HDL Cholesterol 78, TSH 0.717 Microbiology: Microbiology 01/16/24 10:30 Mucosa - Nasopharyngeal Respiratory Panel (PCR) - Final 01/16/24 08:02 Mucosa - Nose SARS-CoV-2, Influenza & RSV (PCR) - Final D/C Instructions Discharge Diet: No restrictions Weight Bearing Status: Weight bearing as tolerated Call your doctor if you observe: Fever of 101 or Higher, Coldness, Increased Pain, Numbness or Tingling, Change in Color, Inability to urinate, Inability to have a bowel movement, Shortness of breath, Dizziness, Fainting spells, Swelling in the ankles, Chest pain, Prolonged hiccupping, Increased palpitations (irregular heartbeat) and Calf discomfort DC O2, CPAP, BIPAP Needs Additional Home O2 Discharge instructions: No DC home with Oxygen: No When: IN 2 WEEKS Meaningful Use Info Meaningful Use Meaningful Use Diagnoses (Choose all that apply): None applicable and CHF CHF MICHELLE/ARB ordered at discharge?: No Reason MICHELLE/ARB not ordered?: Not indicated Documented LVEF (%): 53 Ischemic Stroke Statin Dosing Therapy Reference: STATIN DOSE THERAPY REFERENCE: * Patients > 75 years receive moderate or high dose statin therapy. * Patients 75 years or YOUNGER should receive HIGH intensity statin dose unless contraindicated. You will be required to document reason for non-treatment if statin daily dose does not meet guidelines. HIGH DOSE STATIN THERAPY DAILY Atorvastatin > than or = to 40 mg Rosuvastatin > than or = to 20 mg Amlodipine + Atorvastatin > than or = to 2.5/40 mg Ezetimibe + Simvastatin 10/80 mg Simvastatin 80mg Discharge Plan Admission Admit Date/Time: 01/16/24 09:02 Primary Reason for Your Visit: Acute on chronic HFpEF Attending Provider: Carter Stover Primary Care Provider: Lyudmila Brewer Instructions Additional Instructions / Restrictions: Continue incentive spirometry and PEP for 1 week Discharge Orders/Prescriptions Prescriptions: New dextromethorphan-guaifenesin 60-1,200 mg tablet extended release 12 hr 1 tab PO BID 7 Days Qty: 14 0RF furosemide 40 mg tablet 40 mg PO DAILY 30 Days Qty: 30 2RF Rx Instructions: Take extra 40 mg dose at 5 PM for increased leg swelling or weight gain 5 pounds in 1 week. Continued citalopram 40 mg tablet 40 mg PO QDAY cholecalciferol (vitamin D3) [Vitamin D3] 125 mcg (5,000 unit) tablet 125 mcg PO DAILY cetirizine [Zyrtec] 10 mg tablet 10 mg PO DAILY diphenhydramine HCl [Benadryl Allergy] 25 mg tablet 25 mg PO DAILY omeprazole 40 MG capsule,delayed release(DR/EC) 40 mg PO DAILY apixaban 5 MG tablet 5 mg PO BID Qty: 120 0RF aspirin 81 mg capsule 81 mg PO DAILY morphine 15 mg tablet extended release 15 mg PO Q12.TCU metoprolol succinate [Toprol XL] 100 mg tablet extended release 24 hr 50 mg PO QDAY Qty: 90 4RF Referrals / Follow Up: Lyudmila Brewer DO [Primary Care Provider] - In 1 Week (Office will call you with an appointment, please watch for their phone call. If you do not hear anything from them in 2-3 business days, please contact the office. ) Alpesh Parisi MD [Med Staff - Active Staff] - Within 2 Weeks Megha Zeng PA [Med Staff - Adv Practice Prof] - Within 1 Month Disposition Disposition (needs filled in before D/C Order can be placed): Home, Self Care Charges/Coding Visit Charges Inpatient E&M: 04585 Disch Hosp >30min
[2024-01-17] MEDS: Loratadine 10 MG Tablet PO (09:45)
[2024-01-17] MEDS: busPIRone 5 MG Tablet 10 MG PO (09:45)
[2024-01-17] MEDS: APIXABAN 5 MG TABLET PO (09:45)
[2024-01-17] MEDS: guaiFENesin/D-Methorphan TAB.SR.12H 2 TABLET PO (09:46)
[2024-01-17] MEDS: Senna/Docusate Sodium 1 Tablet 2 TABLET PO (09:46)
[2024-01-17] MEDS: Azithromycin 250 MG Tablet 500 MG PO (09:46)
[2024-01-17] MEDS: Metoprolol(XL)Succ 50 MG Tablet PO (09:46)
[2024-01-17] MEDS: Pantoprazole Sodium 40 MG Tablet PO (09:46)
--- NOTE | 2024-01-17 11:18 | CASEMGMT ---
Met with patient to complete MACKEY form. MACKEY form explained to patient who voiced understanding and signed form. Original form placed in pt?s chart and copy provided to patient. Rosemarie Llamas, Discharge Planning Asst
[2024-01-17] MEDS: 0.9% Saline Lock 10 ML Syringe IV (13:14)
[2024-01-17] MEDS: Furosemide 40 MG/4 ML Vial IV (13:14)
--- NOTE | 2024-01-17 14:07 | CASEMGMT ---
Patient has order for discharge. RN CM in to discuss needs at discharge. Patient denies needs or help at discharge. Patient had no further questions or concerns at this time.
--- NOTE | 2024-01-17 15:14 | CHAPLAIN ---
Type of Pastoral Visit _x__ Initial Visit ___ Follow-up Visit ___ On-call Visit ___ General Patient Visit ___ Spiritual Assessment ___ Family Conference ___ Bereavement ___ Rapid Response ___ Code Blue ___ Other (describe below) Pastoral Care Referral From _x__ Patient ___ Family ___ Nurse ___ Physician ___ Surveillance Systems Analyst ___ Bowling Floor Manager ___ Other (describe below) Sacrament/Intervention _x__ Active listening ___ Anointing ___ Mandaeism ___ Bereavement ___ Communion _x__ Dina exploration ___ _x__ Life review ___ Prayer ___ Reconciliation ___ Sacrament of Sick ___ Supportive presence ___ Wedding ___ Other (describe below) Pastoral Comments patient is welcoming and open to talking; pt states that he is not temple but very spiritual and he gives lots of insights into his belief system; pt has life lessons that he shares in the conversation and gives life review of how he was raised and how he made choices to be different than his family of origin; pt is offered support and 'what other interventions that might be helpful' and pt responds 'you have just done that for me'; time and listening ear given
== END 2024-01-17 09:35 | disposition home or self-care (01) ==
LOC: ED 08:58 → PCU 09:18
PROVIDERS: Admitting Provider Internal Medicine; Emergency Provider Emergency Medicine; PCP Internal Medicine; Visit Provider Internal Medicine
DX: I11.0 Hypertensive heart disease with heart failure (principal); I50.33 Acute on chronic diastolic (congestive) heart failure; J44.9 Chronic obstructive pulmonary disease, unspecified; I48.0 Paroxysmal atrial fibrillation; Z95.5 Presence of coronary angioplasty implant and graft; I25.10 Atherosclerotic heart disease of native coronary artery without angina pectoris; Z79.01 Long term (current) use of anticoagulants; Z79.82 Long term (current) use of aspirin; Z87.891 Personal history of nicotine dependence; E78.00 Pure hypercholesterolemia, unspecified; F68.8 Other specified disorders of adult personality and behavior; Z79.899 Other long term (current) drug therapy; K21.9 Gastro-esophageal reflux disease without esophagitis; Z86.711 Personal history of pulmonary embolism; R91.8 Other nonspecific abnormal finding of lung field
CPT/HCPCS: 36415; 71046; 80048; 80061; 83735; 83880; 84443; 84484; 85025; 87070; 87205; 87631; 87633; 93005; 94640; 94668; 96374; 96375; 96376; 97161; 99221; 99285; A4216; G0378; J1940

== ENCOUNTER → 2024-04-14 | Outpatient (CLI) | payer MEDICARE, OTHER, SELFPAY | END | disposition home or self-care (01) | LOC: PSN 07:45 | PROVIDERS: PCP Internal Medicine; Referring Provider Internal Medicine; Visit Provider Internal Medicine | DX: R00.1 Bradycardia, unspecified (principal) | CPT/HCPCS: 93225; 93226 ==

== ENCOUNTER → 2024-06-24 | Outpatient (CLI) | payer MEDICARE, OTHER, SELFPAY ==
[2024-06-24 06:54] LABS: Absolute Lymphocyte Count 1.42 X10^3/uL (0.83-4.51); Absolute Neutrophil Count 3.9 X10^3/uL (2.0-7.7); Basophil# 0.05 X10^3/uL; Basophil% 0.8 % (0-1); Eosinophil# 0.21 X10^3/uL; Eosinophils% 3.4 % (0-5); Hemoglobin 13.3 g/dL (13.0-16.5); Lymphocyte # 1.42 X10^3/ul (0.83-4.51); Lymphocyte % 22.9 % (19-41); Mean Corp Hgb Conc 34.1 g/dL (32-36); Mean Corpuscular Hgb 32.3 pg (27.0-32.0); Mean Corpuscular Volume 94.7 fL (80-94); Mean Platelet Vol. 9.2 fl (6.2-12.0); Monocyte% 9.7 % (0-10); NRBC Flagged by Analyzer 0 % (0-5); Neutrophil # 3.89 X10^3/uL (2.7-7.7); Neutrophil % 62.7 % (47-70); Platelet Count 249 K/mm3 (150-450); RBC Distribution Width CV 13.5 % (11.6-14.6); RBC Distribution Width SD 47.3 fl (35.1-43.9); Red Blood Count 4.12 M/mm3 (4.6-6.2); White Blood Count 6.2 K/mm3 (4.4-11.0)
[2024-06-24 07:14] LABS: Anion Gap 11 (5-15); BUN 22 mg/dL (4-19); BUN/Creat Ratio 21.3 RATIO (10-20); Calcium,Total 10.2 mg/dL (7.6-11.0); Chloride 99 mmol/L (98-108); Creatinine, Serum 1.05 mg/dL (0.70-1.20); EST Glomerular Filtration Rate 76 (>60); Glucose 125 mg/dL (70-99); Potassium 4.7 mmol/L (3.3-5.1); Pro- Brain NATRIURETIC PEPTIDE 80 pg/mL (<=900); Sodium Level 133 mmol/L (133-145)
== END | disposition home or self-care (01) ==
LOC: LAB 06:00
PROVIDERS: PCP Internal Medicine; Referring Provider Nurse Practitioner Family; Visit Provider Nurse Practitioner Family
DX: I25.10 Atherosclerotic heart disease of native coronary artery without angina pectoris (principal); I48.0 Paroxysmal atrial fibrillation; I10 Essential (primary) hypertension; R06.09 Other forms of dyspnea
CPT/HCPCS: 36415; 80048; 83880; 85025

== ENCOUNTER 2024-07-25 10:33 | Emergency (ER) | payer MEDICARE, OTHER, SELFPAY ==
[2024-07-25] VITALS (7 sets, daily range): BP systolic 124–171; BP diastolic 52–82; PULSE 45–64; RESP 14–20; TEMP 36.2; O2SAT 91–99; BMI 33.0
--- NOTE | 2024-07-25 11:16 | EDS_ITS ---
HPI History of Present Illness Chief Complaint: Shortness of Breath Informant: patient and spouse/S.O. Narrative Narrative: 68-year-old male presenting to the emergency room with shortness of breath. Patient notes a history of coronary artery disease and is scheduled for heart catheterization August 07. He states he had a recent stress test and echocardiogram. He he had atrial fibrillation and is currently on Eliquis and was cardioverted to a sinus rhythm. He states that his heart rate and blood pressure have been running lower than normal especially since the addition of isosorbide which they gave him due to the continued shortness of breath. He notes that at the time of his cardioversion he had several bags of IV fluids which caused him to have some volume overload and he was inpatient diuresed but is not currently on diuretic therapy. He has been having headaches recently and so he did not take his isosorbide this morning. He called his tobacco prevention health educator office and they told him to come to emergency. He states that he does have anxiety he has been having difficulty sleeping. His doctor prescribed him some trazodone. He states that he wakes up about every 10 minutes due to shortness of breath. [facility] Medical History Hypomania Atherosclerosis of coronary artery of [place] heart without angina pectoris Dupuytren contracture Fatty liver Paroxysmal atrial fibrillation GERD (gastroesophageal reflux disease) Osteoarthritis Bilateral pulmonary embolism Prostate CA Cluster B personality disorder Unspecified mood [affective] disorder Cancer History of steroid therapy Arthritis High cholesterol Pulmonary embolism DVT (deep venous thrombosis) Excessive bleeding Back pain Injury of back Former smoker COPD (chronic obstructive pulmonary disease) Leg cramps History of echocardiogram History of stress test Hypertension History of steroid therapy Home Medications ?Medication ?Instructions ?Recorded ?Last Taken ?Type omeprazole 40 mg capsule,delayed 40 mg PO DAILY gerd 0 07/22/19 01/15/24 History release apixaban 5 mg tablet 5 mg PO BID blood thinner #1 20 tabs 08/02/19 01/16/24 Rx citalopram 40 mg tablet 40 mg PO QDAY mental health 12/03/23 01/15/24 History cetirizine 10 mg tablet (Zyrtec) 10 mg PO DAILY Allerg ies 12/26/23 01/15/24 History cholecalciferol (vitamin D3) 125 125 mcg PO DAILY chasidy min 12/26/23 01/15/24 History mcg (5,000 unit) tablet (Vitamin D3) diphenhydramine HCl 25 mg tablet 25 mg PO DAILY Allerg ies 12/26/23 01/15/24 History (Benadryl Allergy) aspirin 81 mg capsule 81 mg PO DAILY heart health 01/14/24 01/15/24 History morphine 15 mg tablet,extended 15 mg PO Q12H pain 12/28 09/18 Unknown History release trazodone 50 mg tablet 50 mg PO QHS PRN insomnia #3 0 tabs 01/23/24 Unknown Rx losartan 50 mg tablet 50 mg PO QDAY 02/07/24 Unkno wn History aripiprazole 5 mg tablet 5 mg PO DAILY #30 tabs 06/03 Unknown Rx budesonide 160 mcg-glycopyr 9 2 inh inhalation BID Unknown History mcg-formot 4.8 mcg/actuation HFA inhaler (Breztri Aerosphere) simvastatin 20 mg tablet 20 mg PO QHS #90 tabs Unknown Rx isosorbide mononitrate 30 mg 30 mg PO DAILY #30 tabs 0 07/14/24 Unknown Rx tablet,extended release 24 hr Allergy/AdvReac Type Severity Reaction Status Date / Time hydrocodone bitartrate (From AdvReac Itching Verified 07/25/24 10:38 Vicodin) Family History Other Alcoholism Surgical History History of cardioversion (01/14/24) Status post left knee replacement History of cardiac catheterization History of coronary artery stent placement (08/20/14) Hx of total knee replacement Hx of colonoscopy Hx of prostatectomy History of back surgery Hx of arthroscopy of shoulder Hx of elbow surgery Hx of left knee surgery Hx of right knee surgery Hx of surgical procedure Social History Smoking Status: Former smoker how long ago did patient quit smokin years ago alcohol intake: never substance use type: does not use caffeine: Yes Type: carbonated beverages Number of servings: 2 and coffee Number of servings: 2 ROS ROS ED ROS Narrative Insomnia Constitutional Constitutional ED: Denies chills, fever(s) or weight loss Eyes Eyes: Denies change in vision or diplopia ENT ENT ED: Denies ear pain, rhinorrhea or sore throat Cardiovascular Cardiovascular: Denies chest pain, orthopnea, palpitations or racing heartbeat Respiratory/Chest Respiratory/Chest: Reports dyspnea and dyspnea on exertion; Denies cough or orthopnea Gastrointestinal Gastrointestinal: Denies abdominal pain, diarrhea, nausea or vomiting Genitourinary Genitourinary ED: Denies dysuria, hematuria or urinary frequency Musculoskeletal Musculoskeletal: Denies arthralgias or myalgias Integumentary Denies abscess or rash Neurologic Neurologic: Denies headache(s) or weakness Psychiatric Psychiatric: Reports anxiety; Denies depression, suicidal ideation or suicidal thoughts Endocrine Endocrinology: Denies polydipsia, polyphagia or polyuria Allergic/Immunologic Allergic/Immunologic ED: Denies mouth swelling, tongue swelling or urticaria EXAM Physical Exam Const Vital Signs: 07/25/24 10:34 07/25/24 11:14 Temperature 97.2 F L Temperature Source Temporal Pulse Rate 54 L Respiratory Rate 19 H Respiratory Effort Normal Respiratory Depth Normal Respiratory Pattern Normal Blood Pressure 167/79 H Blood Pressure Mean 108 Pulse Ox 97 Oxygen Delivery Method Room Air Room Air Positive well nourished, well developed and obese General Appearance ED: well developed and NAD Nutritional Appearance: obese HEENT Reports normocephalic, head/scalp atraumatic and moist mucous membranes Eyes PERRL and EOMs intact bilaterally Neck no lymphadenopathy, supple and no JVD Resp clear to auscultation bilaterally Resp Narrative: Patient appears tachypneic in a hyperventilation like pattern. Cardio regular rate, regular rhythm and no murmurs GI normal to inspection, nondistended, normoactive bowel sounds and non-tender Palpation: soft Back/Spine no CVA tenderness and normal ROM Extremity normal to inspection General Extremety ED: Negative for edema General Extremity: Negative for edema Neuro oriented x3 and CN's II-XII intact bilaterally Sensorium / Orientation: alert Motor Exam: strength 5/5 throughout Psych Mood & Affect: anxious; Negative for depressed or tearful Skin no rashes or lesions noted and no wounds Discharge Plan Triage Chief Complaint: Shortness of Breath ED Provider: Abiodun Gardner Dx/Rx/DC Orders Prescriptions: No Action citalopram 40 mg tablet 40 mg PO QDAY cholecalciferol (vitamin D3) [Vitamin D3] 125 mcg (5,000 unit) tablet 125 mcg PO DAILY cetirizine [Zyrtec] 10 mg tablet 10 mg PO DAILY diphenhydramine HCl [Benadryl Allergy] 25 mg tablet 25 mg PO DAILY Breztri Aerosphere 160-9-4.8 mcg/actuation HFA aerosol inhaler 2 inh inhalation BID simvastatin 20 mg tablet 20 mg PO QHS Qty: 90 3RF trazodone 50 mg tablet 50 mg PO QHS PRN (Reason: insomnia) Qty: 30 0RF aripiprazole 5 mg tablet 5 mg PO DAILY Qty: 30 2RF isosorbide mononitrate 30 mg tablet extended release 24 hr 30 mg PO DAILY Qty: 30 11RF omeprazole 40 MG capsule,delayed release(DR/EC) 40 mg PO DAILY apixaban 5 MG tablet 5 mg PO BID Qty: 120 0RF aspirin 81 mg capsule 81 mg PO DAILY morphine 15 mg tablet extended release 15 mg PO Q12H losartan 50 mg tablet 50 mg PO QDAY Primary Care Provider: Lyudmila Brewer Referrals: Lyudmila Brewer DO [Primary Care Provider] - Print Language: Gabonese
--- NOTE | 2024-07-25 11:16 | EKG12_ITS ---
Test Reason : SOB Blood Pressure : */* mmHG Vent. Rate : 53 BPM Atrial Rate : 53 BPM P-R Int : 178 ms QRS Dur : 102 ms QT Int : 418 ms P-R-T Axes : -6 -7 89 degrees QTcB Int : 392 ms Sinus bradycardia Nonspecific T wave abnormality Abnormal ECG Confirmed by Chance Fernandez ([id number]), visual effects editor JARET ELISE ([id number]) on 07/28/2024 10:49:27 AM Referred By: HENRY/SEDA Confirmed By: Chance Fernandez
--- NOTE | 2024-07-25 11:16 | ED.VIS.DYS ---
HPI History of Present Illness Chief Complaint: Shortness of Breath Informant: patient and spouse/S.O. Narrative Narrative: 68-year-old male presenting to the emergency room with shortness of breath. Patient notes a history of coronary artery disease and is scheduled for heart catheterization August 07. He states he had a recent stress test and echocardiogram. He he had atrial fibrillation and is currently on Eliquis and was cardioverted to a sinus rhythm. He states that his heart rate and blood pressure have been running lower than normal especially since the addition of isosorbide which they gave him due to the continued shortness of breath. He notes that at the time of his cardioversion he had several bags of IV fluids which caused him to have some volume overload and he was inpatient diuresed but is not currently on diuretic therapy. He has been having headaches recently and so he did not take his isosorbide this morning. He called his vice president of nursing office and they told him to come to emergency. He states that he does have anxiety he has been having difficulty sleeping. His doctor prescribed him some trazodone. He states that he wakes up about every 10 minutes due to shortness of breath. [facility] Medical History Hypomania Atherosclerosis of coronary artery of [place] heart without angina pectoris Dupuytren contracture Fatty liver Paroxysmal atrial fibrillation GERD (gastroesophageal reflux disease) Osteoarthritis Bilateral pulmonary embolism Prostate CA Cluster B personality disorder Unspecified mood [affective] disorder Cancer History of steroid therapy Arthritis High cholesterol Pulmonary embolism DVT (deep venous thrombosis) Excessive bleeding Back pain Injury of back Former smoker COPD (chronic obstructive pulmonary disease) Leg cramps History of echocardiogram History of stress test Hypertension History of steroid therapy Home Medications ?Medication ?Instructions ?Recorded ?Last Taken ?Type omeprazole 40 mg capsule,delayed 40 mg PO DAILY gerd 07/22/19 07/25/24 History release apixaban 5 mg tablet 5 mg PO BID blood thinner #120 tabs 08/02/19 07/25/24 Rx citalopram 40 mg tablet 40 mg PO DAILY mental health 12/03/23 07/25/24 History cetirizine 10 mg tablet (Zyrtec) 10 mg PO DAILY Allergies 12/26/23 07/25/24 History cholecalciferol (vitamin D3) 125 125 mcg PO DAILY vitamin 12/26/23 07/25/24 History mcg (5,000 unit) tablet (Vitamin D3) diphenhydramine HCl 25 mg tablet 25 mg PO DAILY Allergies 12/26/23 07/25/24 History (Benadryl Allergy) aspirin 81 mg capsule 81 mg PO DAILY heart health 01/14/24 07/25/24 History morphine 15 mg tablet,extended 15 mg PO Q12H pain 01/23/24 07/25/24 History release losartan 50 mg tablet 50 mg PO DAILY 02/07/24 07/25/24 History aripiprazole 5 mg tablet 5 mg PO DAILY #30 tabs 06/03/24 07/25/24 Rx budesonide 160 mcg-glycopyr 9 2 inh inhalation BID 06/23/24 07/25/24 History mcg-formot 4.8 mcg/actuation HFA inhaler (Breztri Aerosphere) simvastatin 20 mg tablet 20 mg PO QHS #90 tabs 06/23/24 07/24/24 Rx isosorbide mononitrate 30 mg 30 mg PO DAILY #30 tabs 07/14/24 07/25/24 Rx tablet,extended release 24 hr trazodone 50 mg tablet 50 - 100 mg PO QHS PRN insomnia 07/25/24 07/25/24 History Allergy/AdvReac Type Severity Reaction Status Date / Time hydrocodone bitartrate (From AdvReac Itching Verified 07/25/24 10:38 Vicodin) Family History Other Alcoholism Surgical History History of cardioversion (01/14/24) Status post left knee replacement History of cardiac catheterization History of coronary artery stent placement (08/20/14) Hx of total knee replacement Hx of colonoscopy Hx of prostatectomy History of back surgery Hx of arthroscopy of shoulder Hx of elbow surgery Hx of left knee surgery Hx of right knee surgery Hx of surgical procedure Social History Smoking Status: Former smoker how long ago did patient quit smokin years ago alcohol intake: never substance use type: does not use caffeine: Yes Type: carbonated beverages Number of servings: 2 and coffee Number of servings: 2 ROS ROS ED ROS Narrative Insomnia Constitutional Constitutional ED: Denies chills, fever(s) or weight loss Eyes Eyes: Denies change in vision or diplopia ENT ENT ED: Denies ear pain, rhinorrhea or sore throat Cardiovascular Cardiovascular: Denies chest pain, orthopnea, palpitations or racing heartbeat Respiratory/Chest Respiratory/Chest: Reports dyspnea and dyspnea on exertion; Denies cough or orthopnea Gastrointestinal Gastrointestinal: Denies abdominal pain, diarrhea, nausea or vomiting Genitourinary Genitourinary ED: Denies dysuria, hematuria or urinary frequency Musculoskeletal Musculoskeletal: Denies arthralgias or myalgias Integumentary Denies abscess or rash Neurologic Neurologic: Denies headache(s) or weakness Psychiatric Psychiatric: Reports anxiety; Denies depression, suicidal ideation or suicidal thoughts Endocrine Endocrinology: Denies polydipsia, polyphagia or polyuria Allergic/Immunologic Allergic/Immunologic ED: Denies mouth swelling, tongue swelling or urticaria EXAM Physical Exam Const Vital Signs: 07/25/24 10:34 07/25/24 11:14 07/25/24 11:33 Temperature 97.2 F L Temperature Source Temporal Pulse Rate 54 L 53 L Respiratory Rate 19 H 14 Respiratory Effort Normal Respiratory Depth Normal Respiratory Pattern Normal Blood Pressure 167/79 H 149/68 H Blood Pressure Mean 108 95 Pulse Ox 97 95 Oxygen Delivery Method Room Air Room Air Room Air 07/25/24 12:00 07/25/24 13:00 07/25/24 14:00 Temperature Temperature Source Pulse Rate 57 L 53 L 64 Respiratory Rate 20 H 15 14 Respiratory Effort Respiratory Depth Respiratory Pattern Blood Pressure 171/68 H 161/82 H 157/81 H Blood Pressure Mean 102 107 106 Pulse Ox 97 99 98 Oxygen Delivery Method Room Air 07/25/24 14:00 07/25/24 14:30 Temperature Temperature Source Pulse Rate 45 L 57 L Respiratory Rate 14 18 Respiratory Effort Respiratory Depth Respiratory Pattern Blood Pressure 124/52 H Blood Pressure Mean 74 Pulse Ox 91 96 Oxygen Delivery Method Positive well nourished, well developed and obese General Appearance ED: well developed and NAD Nutritional Appearance: obese HEENT Reports normocephalic, head/scalp atraumatic and moist mucous membranes Eyes PERRL and EOMs intact bilaterally Neck no lymphadenopathy, supple and no JVD Resp clear to auscultation bilaterally Resp Narrative: Patient appears tachypneic in a hyperventilation like pattern. Cardio regular rate, regular rhythm and no murmurs GI normal to inspection, nondistended, normoactive bowel sounds and non-tender Palpation: soft Back/Spine no CVA tenderness and normal ROM Extremity normal to inspection General Extremety ED: Negative for edema General Extremity: Negative for edema Neuro oriented x3 and CN's II-XII intact bilaterally Sensorium / Orientation: alert Motor Exam: strength 5/5 throughout Psych Mood & Affect: anxious; Negative for depressed or tearful Skin no rashes or lesions noted and no wounds MDM MDM MDM Narrative Medical decision making narrative: Differential diagnosis includes but not limited to acute coronary syndrome angina congestive heart failure anemia pneumonia pleural effusion My independent interpretation the chest x-ray is no acute process. White count 6.5 hemoglobin 14.5. 2 sets of cardiac enzymes are 18 and 16 proBNP is 202 normal lipase liver with an ALT of 49 glucose 105 creatinine 1.13. EKG is unchanged from prior showing a sinus bradycardia at a rate of 53 bpm. Patient received a dose of Ativan and has been actually resting much more comfortable. His work of breathing is substantially less but he still awake conversant. I spoke with on-call vice president of nursing Dr. Gamboa and reviewed the patient's chart and his ED evaluation. The patient wishes to continue his isosorbide despite the headaches and will be using Tylenol for the headaches. We talked about discontinuing it and starting Ranexa which the patient would prefer to continue the medicine. Patient is wishing to be discharged with I think is a reasonable plan but he is urged to keep his appointment with his vice president of nursing for heart catheterization. Monitor for changes return if worsening or concerns History & Record Review Discussion w/independent historian: Patient and Significant other Additional record(s) reviewed:: Prior outpatient record, Prior ED visit and Prior labs Lab Data Attestation: I reviewed the patient's lab results. Labs: Laboratory Results - last 24 hr 07/25/24 07/25/24 11:24 13:23 WBC 6.5 RBC 4.57 L Hgb 14.5 Hct 41.6 MCV 91.0 MCH 31.7 MCHC 34.9 RDW Std Deviation 40.9 RDW Coeff of Doug 12.3 Plt Count 229 MPV 9.0 Immature Gran % (Auto) 0.500 Neut % (Auto) 66.3 Lymph % (Auto) 20.6 Maury % (Auto) 9.1 Eos % (Auto) 2.6 Baso % (Auto) 0.9 Absolute Neuts (auto) 4.3 Absolute Lymphs (auto) 1.33 Nucleated RBC % 0 Sodium 131 L Potassium 4.7 Chloride 96 L Carbon Dioxide 24.5 Anion Gap 11 BUN 18 Creatinine 1.13 Estim Creat Clear Calc 80.27 Est GFR (MDRD) Non-Af 70 BUN/Creatinine Ratio 16.1 Glucose 105 H Calcium 10.6 Total Bilirubin 0.56 AST 38 ALT 49 H Alkaline Phosphatase 72 Troponin T High Sens 18 Troponin T Hi Sens 2 Hr 16 NT pro BNP II 202 Total Protein 7.9 Albumin 4.2 Globulin 3.7 Albumin/Globulin Ratio 1.1 Lipase 31 Radiography Diagnostic Testing: Clinical Impression(s) from Imaging Studies Chest X-Ray 07/25/24 11:35 IMPRESSION: Hyperinflation and COPD. No acute abnormality is present. Reading Location: [place] [id number] EKG Initial EKG: Attestation: I personally reviewed and interpreted this EKG as follows: Comments: Sinus bradycardia ventricular rate of 53 bpm Prior EKG tracings: available for review Prior: Unchanged (14 Jul 2024) Management Discussion w/another healthcare provider: Music Professor (Dr Gamboa) Discharge Plan Triage Chief Complaint: Shortness of Breath ED Provider: Abiodun Gardner Dx/Rx/DC Orders Clinical Impression: Acute dyspnea, CAD (coronary artery disease) Instructions: ED Dyspnea Prescriptions: No Action citalopram 40 mg tablet 40 mg PO DAILY cholecalciferol (vitamin D3) [Vitamin D3] 125 mcg (5,000 unit) tablet 125 mcg PO DAILY cetirizine [Zyrtec] 10 mg tablet 10 mg PO DAILY diphenhydramine HCl [Benadryl Allergy] 25 mg tablet 25 mg PO DAILY Breztri Aerosphere 160-9-4.8 mcg/actuation HFA aerosol inhaler 2 inh inhalation BID simvastatin 20 mg tablet 20 mg PO QHS Qty: 90 3RF aripiprazole 5 mg tablet 5 mg PO DAILY Qty: 30 2RF isosorbide mononitrate 30 mg tablet extended release 24 hr 30 mg PO DAILY Qty: 30 11RF Patient Comments: PT BEEN HAVING BAD HEADACHES SIDE EFFECT. PT DISCUSSING WITH MD POSSIBLY DISCONTINUING MED. omeprazole 40 MG capsule,delayed release(DR/EC) 40 mg PO DAILY apixaban 5 MG tablet 5 mg PO BID Qty: 120 0RF aspirin 81 mg capsule 81 mg PO DAILY morphine 15 mg tablet extended release 15 mg PO Q12H trazodone 50 mg tablet 50 - 100 mg PO QHS PRN (Reason: insomnia) losartan 50 mg tablet 50 mg PO DAILY Primary Care Provider: Lyudmila Brewer Referrals: Lyudmila Brewer DO [Primary Care Provider] - Activity Restrictions/Additional Instructions: Please continue your medications as we discussed. Please stay in contact with cardiology if you have further concerns Print Language: Turkmen Disposition Disposition: Home, Self Care Discharge Date/Time: 07/25/24 14:48
--- NOTE | 2024-07-25 11:35 | RAD_ITS ---
PROCEDURE: CHEST 1 VIEW (PORTABLE) 07/25/2024 REASON FOR EXAM: DYSPNEA TECHNIQUE: Frontal view of the chest. COMPARISON: Prior study dated January 16, 2024. FINDINGS: Hardware: EKG electrodes are seen. Heart: The heart size is normal. Lungs: Hyperinflation. Findings suggestive of emphysematous changes with prominence of the central pulmonary arteries suggestive of possible pulmonary hypertension. Bones: Degenerative changes are identified within the thoracic spine. Other: Atherosclerotic calcification of the aortic arch. RAD/Chest 1 View (Portable) IMPRESSION: Hyperinflation and COPD. No acute abnormality is present. Reading Location: [place] [id number]
[2024-07-25 11:36] LABS: Absolute Lymphocyte Count 1.33 X10^3/uL (0.83-4.51); Absolute Neutrophil Count 4.3 X10^3/uL (2.0-7.7); Basophil# 0.06 X10^3/uL; Basophil% 0.9 % (0-1); Eosinophil# 0.17 X10^3/uL; Eosinophils% 2.6 % (0-5); Hematocrit 41.6 % (40-54); Hemoglobin 14.5 g/dL (13.0-16.5); Lymphocyte # 1.33 X10^3/ul (0.83-4.51); Lymphocyte % 20.6 % (19-41); Mean Corp Hgb Conc 34.9 g/dL (32-36); Mean Corpuscular Hgb 31.7 pg (27.0-32.0); Monocyte# 0.59 X10^3/uL; Monocyte% 9.1 % (0-10); NRBC Flagged by Analyzer 0 % (0-5); Neutrophil # 4.27 X10^3/uL (2.7-7.7); Neutrophil % 66.3 % (47-70); Platelet Count 229 K/mm3 (150-450); RBC Distribution Width CV 12.3 % (11.6-14.6); RBC Distribution Width SD 40.9 fl (35.1-43.9); Red Blood Count 4.57 M/mm3 (4.6-6.2); White Blood Count 6.5 K/mm3 (4.4-11.0)
[2024-07-25 11:57] LABS: ALB/GLOB Ratio 1.1 RATIO (0.9-2.4); AST(SGOT) 38 U/L (<=37); Alanine Aminotransfer ALT/SGPT 49 U/L (<=46); Albumin, Serum 4.2 g/dL (3.4-4.8); Alkaline Phosphatase 72 U/L (40-129); Anion Gap 11 (5-15); BUN 18 mg/dL (4-19); BUN/Creat Ratio 16.1 RATIO (10-20); Calcium,Total 10.6 mg/dL (7.6-11.0); Carbon Dioxide 24.5 mmol/L (21.0-32.0); Chloride 96 mmol/L (98-108); Creatinine, Serum 1.13 mg/dL (0.70-1.20); EST Glomerular Filtration Rate 70 (>60); Estimated Creatinine Clearance 80.27 ml/min (50-250); Globulin 3.7 g/dL (2.2-4.2); Glucose 105 mg/dL (70-99); Lipase 31 U/L (13-75); Potassium 4.7 mmol/L (3.3-5.1); Pro- Brain NATRIURETIC PEPTIDE 202 pg/mL (<=900); Protein, Total 7.9 g/dL (5.9-8.4); Sodium Level 131 mmol/L (133-145); Total Bilirubin 0.56 mg/dL (0.00-1.30); Troponin T High Sensitivity 18 ng/L (<=22)
[2024-07-25] MEDS: Lorazepam 2 MG/ML WCH Syringe 0.5 MG IV (12:25)
[2024-07-25 13:46] LABS: Troponin T High Sens 2 HR 16 ng/L (<=22)
== END 2024-07-25 14:48 | disposition home or self-care (01) ==
PROVIDERS: Emergency Provider Emergency Medicine; PCP Internal Medicine; Visit Provider Emergency Medicine
DX: R06.00 Dyspnea, unspecified (principal); J44.9 Chronic obstructive pulmonary disease, unspecified; I48.91 Unspecified atrial fibrillation; I25.10 Atherosclerotic heart disease of native coronary artery without angina pectoris; Z87.891 Personal history of nicotine dependence; I10 Essential (primary) hypertension; Z79.01 Long term (current) use of anticoagulants; E78.00 Pure hypercholesterolemia, unspecified; E66.9 Obesity, unspecified; F41.9 Anxiety disorder, unspecified; Z86.718 Personal history of other venous thrombosis and embolism; Z86.711 Personal history of pulmonary embolism; Z85.46 Personal history of malignant neoplasm of prostate; Z95.5 Presence of coronary angioplasty implant and graft; Z79.82 Long term (current) use of aspirin
CPT/HCPCS: 71045; 80053; 83690; 83880; 84484; 85025; 93005; 96374; 99284; A4216

== ENCOUNTER 2024-08-13 06:57 | Day surgery (SDC) | payer MEDICARE, OTHER, SELFPAY ==
[2024-08-12 10:25] VITALS: BMI 33.0
--- NOTE | 2024-10-06 09:45 | CL.D_ITS ---
Patient Name: KIERSTEN ANDREA Study Date: 08/13/2024 Performing: Paresh Delgado MD Ht: 73 inches 185.42 cm : 1955 Wt: 250 lbs 113.4 kg Age: 68 Gender: male BSA: 2.37 PROCEDURE(S) PERFORMED [id number])[facility] CLINICAL PROFILE AND INDICATIONS Indications: Suspected CAD Heart Failure: None Stress/Imaging Date: 01/20/24 CAD Presentations: Other: SOB CONCLUSIONS Coronary artery disease involving a previously stented circumflex artery moderate disease involving the circumflex arterial system mild disease involving the left anterior descending artery system and severe disease involving the distal right coronary artery with [id number] collaterals and preserved ejection fraction. RECOMMENDATIONS Medical therapy DESCRIPTION OF PROCEDURE The patient arrived to the procedure lab. The risks and benefits of the procedure as well as a full description of our services here and current unavailability of surgical backup were fully explained to the patient and/or their significant other prior to the catheterization. The Timeout was completed, verifying the correct patient and procedure. The patient's procedural site was prepped and draped in the usual fashion. Local anesthetic was given subcutaneously to right radial region with Lidocaine 2%. Using a modified Seldinger technique, arterial access was obtained via the right radial artery, a 6Fr sheath was inserted. Left Coronary Artery selective angiography was performed in multiple views using a 5 Fr. JL3.5 catheter. Right Coronary Artery selective angiography was then performed in multiple views using a 5 Fr. 4.0 Oxford catheter.The arterial sheath was pulled and a TR Band was applied for hemostasis 10 ml of air CORONARY ANGIOGRAPHY DOMINANCE: Co- Dominant LEFT HEART ASSESSMENT Left Ventricular Ejection Fraction: by Echo 53 % Normal LV wall motion LEFT MAIN: Angiographically normal LEFT ANTERIOR DESCENDING ARTERY: Is a medium size vessel with mild calcification and giving of the first diagonal branch. There is mild atherosclerotic plaquing and no high-grade stenosis noted. The vessel continues courses towards the apex of the ventricle. CIRCUMFLEX ARTERY: Codominant vessel with a first obtuse marginal branch with no significant stenosis. The proximal circumflex artery stented with a stent patent with 30% in-stent stenosis. The vessel then continues and gives of an obtuse marginal branch which bifurcates with both limbs having approximately 70% stenosis. The AV groove branch continues with luminal irregularities of up to 50% and then supplies distal right coronary artery collateralization. RIGHT CORONARY ARTERY: Codominant medium size vessel with proximal mild stenosis moderate mid segment stenosis and distally the posterior descending artery appears to be totally occluded. Small posterolateral vessel is present. COLLATERAL FLOW: Collateral flow from Left to Right COMPLICATIONS No Complications PROCEDURE MEDICATIONS Versed 1 mg IV Fentanyl 50 mcg IV Versed 1 mg IV Oxygen: 2 L/min via nasal cannula Heparin given IA 08/13/2024 08:10:56 Verapamil 2.5mg, Ntg 100mcgs, 3000 units of Heparin given IA 08/13/2024 08:10:56 SUMMARY OF HEMODYNAMIC DATA Time AIR REST ECG 07:54:15 AO 149/71 (95) SA 08:12:59 AO 158/72 (106) 08:23:26 Signed By Paresh Delgado MD On 08/13/2024 08:44:37 Paresh Delgado MD
== END 2024-08-13 10:10 | disposition home or self-care (01) ==
PROVIDERS: PCP Internal Medicine; Referring Provider Internal Medicine Cardiovascular Disease; Visit Provider Internal Medicine Cardiovascular Disease
DX: I25.10 Atherosclerotic heart disease of native coronary artery without angina pectoris (principal); J44.9 Chronic obstructive pulmonary disease, unspecified; I48.0 Paroxysmal atrial fibrillation; Z85.46 Personal history of malignant neoplasm of prostate; Z86.711 Personal history of pulmonary embolism; Z79.01 Long term (current) use of anticoagulants; R06.02 Shortness of breath; K21.9 Gastro-esophageal reflux disease without esophagitis; Z86.718 Personal history of other venous thrombosis and embolism; Z95.5 Presence of coronary angioplasty implant and graft; Z87.891 Personal history of nicotine dependence; R53.83 Other fatigue; I10 Essential (primary) hypertension
CPT/HCPCS: 93454; 99152; 99153; Q9967; C1769; C1894

== ENCOUNTER 2024-08-27 18:05 | Emergency (ER) | payer MEDICARE, OTHER, SELFPAY ==
[2024-08-27 18:06] VITALS: BP 125/82; PULSE 61; RESP 20; TEMP 36.9; O2SAT 93; BMI 33.5
--- NOTE | 2024-08-27 18:08 | EKG12_ITS ---
Test Reason : SWELLING Blood Pressure : */* mmHG Vent. Rate : 56 BPM Atrial Rate : 56 BPM P-R Int : 184 ms QRS Dur : 106 ms QT Int : 476 ms P-R-T Axes : 24 0 81 degrees QTcB Int : 459 ms Sinus bradycardia with marked sinus arrhythmia Otherwise normal ECG Confirmed by MANDIE MALLORY, KODAK ([id number]), photo editor JARET ELISE ([id number]) on 08/28/2024 10:08:02 AM Referred By: Vincent Ko Confirmed By: KODAK LOCKWOOD MD
--- NOTE | 2024-08-27 18:08 | EKG12_ITS ---
Test Reason : SWELLING Blood Pressure : */* mmHG Vent. Rate : 56 BPM Atrial Rate : 56 BPM P-R Int : 184 ms QRS Dur : 106 ms QT Int : 476 ms P-R-T Axes : 24 0 81 degrees QTcB Int : 459 ms Sinus bradycardia with marked sinus arrhythmia Otherwise normal ECG Confirmed by MANDIE AMLLORY, KODAK ([id number]), editor dictionary JARET ELISE ([id number]) on 08/28/2024 10:08:02 AM Referred By: Vincent Ko Confirmed By: KODAK LOCKWOOD MD
[2024-08-27 18:33] LABS: Hematocrit 35.4 % (40-54); Hemoglobin 12.4 g/dL (13.0-16.5); Immature Granulocytes Count 0.020 X10^3/uL (0.0-0.0); Mean Corp Hgb Conc 35.0 g/dL (32-36); Mean Corpuscular Volume 90.8 fL (80-94); Mean Platelet Vol. 8.6 fl (6.2-12.0); NRBC Flagged by Analyzer 0 % (0-5); Platelet Count 229 K/mm3 (150-450); RBC Distribution Width CV 13.1 % (11.6-14.6); RBC Distribution Width SD 42.6 fl (35.1-43.9); Red Blood Count 3.90 M/mm3 (4.6-6.2); White Blood Count 5.9 K/mm3 (4.4-11.0)
--- NOTE | 2024-08-27 19:00 | RAD_ITS ---
PROCEDURE: CHEST PA AND LATERAL 08/27/2024 REASON FOR EXAM: CHEST PAIN TECHNIQUE: CHEST PA AND LATERAL COMPARISON: 07/25/2024 FINDINGS: No focal consolidation. No pleural effusion or pneumothorax. Cardiac silhouette is within normal limits. Calcified aortic arch. No acute fractures. RAD/Chest PA and Lateral IMPRESSION: No focal consolidations. Reading Location: [id number]
--- NOTE | 2024-08-27 19:00 | RAD_ITS ---
PROCEDURE: CHEST PA AND LATERAL 08/27/2024 REASON FOR EXAM: CHEST PAIN TECHNIQUE: CHEST PA AND LATERAL COMPARISON: 07/25/2024 FINDINGS: No focal consolidation. No pleural effusion or pneumothorax. Cardiac silhouette is within normal limits. Calcified aortic arch. No acute fractures. RAD/Chest PA and Lateral IMPRESSION: No focal consolidations. Reading Location: [id number]
[2024-08-27 19:05] VITALS: BP 137/99; PULSE 58; RESP 18; O2SAT 94
[2024-08-27 19:24] VITALS: O2SAT 94
[2024-08-27 19:30] LABS: Troponin T High Sensitivity 20 ng/L (<=22)
[2024-08-27 19:33] LABS: Anion Gap 12 (5-15); BUN 15 mg/dL (4-19); BUN/Creat Ratio 13.1 RATIO (10-20); Calcium,Total 9.8 mg/dL (7.6-11.0); Carbon Dioxide 20.5 mmol/L (21.0-32.0); Chloride 101 mmol/L (98-108); Estimated Creatinine Clearance 80.87 ml/min (50-250); Glucose 87 mg/dL (70-99); Potassium 4.3 mmol/L (3.3-5.1)
[2024-08-27 20:00] VITALS: BP 125/59; PULSE 57; RESP 18; O2SAT 95
[2024-08-27 21:00] VITALS: BP 139/72; PULSE 55; RESP 18; O2SAT 97
--- NOTE | 2024-08-27 21:11 | EKG12_ITS ---
Test Reason : BRADYCARDIA Blood Pressure : */* mmHG Vent. Rate : 59 BPM Atrial Rate : 59 BPM P-R Int : 212 ms QRS Dur : 110 ms QT Int : 496 ms P-R-T Axes : 38 -2 85 degrees QTcB Int : 491 ms Sinus bradycardia with 1st degree A-V block Nonspecific T wave abnormality QTcB >= 480 msec Abnormal ECG Confirmed by MANDIE MALLORY, KODAK ([id number]), development editor JARET ELISE ([id number]) on 08/28/2024 10:08:13 AM Referred By: Vincent Ko Confirmed By: KODAK LOCKWOOD MD
--- NOTE | 2024-08-27 21:11 | EKG12_ITS ---
Test Reason : BRADYCARDIA Blood Pressure : */* mmHG Vent. Rate : 59 BPM Atrial Rate : 59 BPM P-R Int : 212 ms QRS Dur : 110 ms QT Int : 496 ms P-R-T Axes : 38 -2 85 degrees QTcB Int : 491 ms Sinus bradycardia with 1st degree A-V block Nonspecific T wave abnormality QTcB >= 480 msec Abnormal ECG Confirmed by MANDIE MALLORY, KODAK ([id number]), telegraph editor JARET ELISE ([id number]) on 08/28/2024 10:08:13 AM Referred By: Vincent Ko Confirmed By: KODAK LOCKWOOD MD
[2024-08-27 21:24] LABS: Troponin T High Sens 2 HR 19 ng/L (<=22)
--- NOTE | 2024-08-27 22:12 | EDS_ITS ---
HPI History of Present Illness Chief Complaint: Edema Detail of Chief Complaint: Edema, I need Lasix on go home Informant: patient Onset/Context/Timing Onset: Days Context: Sudden Onset Timing: Continuous Quality: Increased swelling of his legs Location: Lower extremities Current Severity: Moderate Maximum Severity: Moderate Worsened by: Nothing per patient Relieved by: Nothing Associated Symptoms Associated Symptoms: Denies orthopnea, PND, chest pain with exertion, shortness of breath with e Narrative Narrative: Patient is a 68-year-old male. He has history of atrial fibrillation status post cardioversion, COPD, cluster B personality disorder, hypomania, congestive heart failure, atherosclerotic coronary disease and hypertension. Patient denies fever, chills night sweats. Patient denies history of liver disease. Patient denies history of kidney disease. Patient denies orthopnea or PND. Patient denies chest discomfort of any type. Office visit authored by Juliocesar espino dated August 19, 2024 was reviewed. An assessment was atherosclerosis of coronary arteries of sun'aq heart vessels without angina, paroxysmal atrial fibrillation on anticoagulant, apixaban, hypertension (controlled with medication), history of prostate cancer status post robotic prostatectomy in 2006. And salvage radiation 2012. Patient presents from urgent care because the urgent care would not give him Lasix for swollen legs. He denies dyspnea. Denies dyspnea on exertion. Nuys orthopnea or PND. He denies sitting a lot. After his . She informed that he has been standing a lot. He denies abdominal pain, nausea, vomit or diarrhea. Nuys black or maroon- colored stool. Patient had an echocardiogram November 23, 2023. Estimated ejection fraction of 53%. He had mild to moderate eccentric mitral valve insufficiency and mild tricuspid valve insufficiency and aortic valve insufficiency. He had recent coronary angiograph done. EF was estimated 53%. The left main was angiographically normal. Left anterior descending artery there was a mid size vessel with mild calcification giving off to first diagonal branch. There is mild atherosclerotic plaquing and no high-grade stenosis noted. Circumflex artery codominant vessel with first obtuse marginal branch with no significant stenosis. The proximal circumflex artery stented with a 30% in stent stenosis. The vessel then continues and gives off obtuse marginal branch which bifurcates with both limbs having approximately 70% stenosis. The AV groove branch has luminal irregularity up to 50%. Then supplies distal right coronary artery collateralization. Right coronary artery is codominant. There is mild stenosis. Patient was placed on metoprolol after cardiac catheterization. contacted Dr. Delgado because this caused him to have significant bradycardia. Dose was decreased by 50%. Prior similar symptoms: Yes Recent Illness/Hospitalization: Yes [facility] Medical History Hypomania Atherosclerosis of coronary artery of sun'aq heart without angina pectoris Dupuytren contracture Fatty liver Paroxysmal atrial fibrillation GERD (gastroesophageal reflux disease) Osteoarthritis Bilateral pulmonary embolism Prostate CA Cluster B personality disorder Unspecified mood [affective] disorder Cancer History of steroid therapy Arthritis High cholesterol Pulmonary embolism DVT (deep venous thrombosis) Excessive bleeding Back pain Injury of back Former smoker COPD (chronic obstructive pulmonary disease) Leg cramps History of echocardiogram History of stress test Hypertension History of steroid therapy Home Medications ?Medication ?Instructions ?Recorded ?Last Taken ?Type omeprazole 40 mg capsule,delayed 40 mg PO DAILY gerd 0 07/22/19 07/25/24 History release apixaban 5 mg tablet 5 mg PO BID blood thinner #1 20 tabs 08/02/19 08/10/24 Rx citalopram 40 mg tablet 40 mg PO DAILY mental health 12/03/23 07/25/24 History cetirizine 10 mg tablet (Zyrtec) 10 mg PO DAILY Allerg ies 12/26/23 07/25/24 History cholecalciferol (vitamin D3) 125 125 mcg PO DAILY chasidy min 12/26/23 07/25/24 History mcg (5,000 unit) tablet (Vitamin D3) diphenhydramine HCl 25 mg tablet 25 mg PO DAILY Allerg ies 12/26/23 07/25/24 History (Benadryl Allergy) aspirin 81 mg capsule 81 mg PO DAILY heart health 01/14/24 08/13/24 History morphine 15 mg tablet,extended 15 mg PO Q12H pain 12/2807/25/24 History release losartan 50 mg tablet 50 mg PO DAILY 02/07/2407/27 History aripiprazole 5 mg tablet 5 mg PO DAILY #30 tabs 06/0307/25/24 Rx budesonide 160 mcg-glycopyr 9 2 inh inhalation BID 07/25/24 History mcg-formot 4.8 mcg/actuation HFA inhaler (Breztri Aerosphere) simvastatin 20 mg tablet 20 mg PO QHS #90 tabs 07/24/24 Rx trazodone 50 mg tablet 50 - 100 mg PO QHS PRN insom emerson 07/25/24 07/25/24 History metoprolol succinate 50 mg 25 mg (1/2 x 50 mg) PO QDAY #90 08/14/24 Unknown Rx tablet,extended release 24 hr tabs (Toprol XL) semaglutide 0.25 mg or 0.5 mg (2 0.25 mg (0.368 mL) tripp bcut QWEEK 4 08/19/24 Unknown Rx mg/3 mL) subcutaneous pen injector weeks #3 mL (Ozempic) isosorbide mononitrate 30 mg 30 mg PO DAILY 08/27/24 U nknown History tablet,extended release 24 hr metoprolol succinate 25 mg 12.5 mg (1/2 x 25 mg) PO DA SHIVA #30 08/27/24 Unknown Rx tablet,extended release 24 hr tabs Allergy/AdvReac Type Severity Reaction Status Date / Time hydrocodone bitartrate (From AdvReac Itching Verified 08/27/24 18:08 Vicodin) Family History Other Alcoholism Surgical History History of cardioversion (01/14/24) Status post left knee replacement History of cardiac catheterization (08/13/24) History of coronary artery stent placement (08/20/14) Hx of total knee replacement Hx of colonoscopy Hx of prostatectomy History of back surgery Hx of arthroscopy of shoulder Hx of elbow surgery Hx of left knee surgery Hx of right knee surgery Hx of surgical procedure Social History Smoking Status: Former smoker how long ago did patient quit smokin years ago alcohol intake: never substance use type: does not use caffeine: Yes Type: carbonated beverages Number of servings: 2 and coffee Number of servings: 2 ROS ROS ED Constitutional Constitutional ED: Denies chills, fever(s) or subjective Eyes Eyes: Denies blurry vision, change in vision or diplopia Cardiovascular Cardiovascular: Denies chest pain, orthopnea, palpitations, paroxysmal nocturnal dyspnea or racing heartbeat Respiratory/Chest Respiratory/Chest: Denies cough, dyspnea, dyspnea on exertion, orthopnea or paroxysmal nocturnal dyspnea Gastrointestinal Gastrointestinal: Denies abdominal pain, constipation, diarrhea, melena, nausea or vomiting Genitourinary Genitourinary ED: Denies dysuria, hematuria or urinary frequency Musculoskeletal Musculoskeletal: Reports other Details: Patient has swelling of both his legs and feet. ; Denies arthralgias, back pain or myalgias Integumentary Denies rash Neurologic Neurologic: Denies headache(s), paresthesias or weakness Endocrine Endocrinology: Denies cold intolerance or heat intolerance Hematologic/Lymphatic Hematologic/Lymphatic: Reports systems reviewed and no addt'l complaints, except as documented Allergic/Immunologic Allergic/Immunologic ED: Denies mouth swelling, tongue swelling or urticaria EXAM Physical Exam Const Vital Signs: 08/27/24 18:06 08/27/24 19:05 08/27/24 19:24 Temperature 98.4 F Temperature Source Oral Pulse Rate 61 58 L Respiratory Rate 20 H 18 Respiratory Effort Respiratory Pattern Blood Pressure 125/82 H 137/99 H Blood Pressure Mean 96 111 Pulse Ox 93 94 94 Oxygen Delivery Method Room Air Room Air Room Air 08/27/24 19:25 08/27/24 20:00 08/27/24 21:00 Temperature Temperature Source Pulse Rate 57 L 55 L Respiratory Rate 18 18 Respiratory Effort Normal Non-Labored Respiratory Pattern Normal Blood Pressure 125/59 H 139/72 H Blood Pressure Mean 81 94 Pulse Ox 95 97 Oxygen Delivery Method Room Air Room Air Positive well nourished and well developed General Appearance ED: well developed and NAD; Negative for cyanotic, diaphoretic or pallor HEENT Reports moist mucous membranes HEENT Narrative: Head is atraumatic normocephalic. Ears normal. Nares patent. Posterior pharynx is normal. Eyes PERRL and EOMs intact bilaterally General Eye ED: Negative for pale conjunctiva or scleral icterus Neck no lymphadenopathy, supple and no JVD Chest Wall inspection of chest normal and palpation of chest normal Resp normal respiratory effort and clear to auscultation bilaterally Cardio regular rhythm, S1 normal heart sound, S2 normal heart sound and no murmurs Rate: bradycardia GI normal to inspection, nondistended, normoactive bowel sounds, non-tender, non- distended and no masses Back/Spine no CVA tenderness Extremity normal to inspection Extremity Narrative: There is no asymmetry, discoloration, leg vein distention, palpable cords sounds on the distribution deep venous system. PT pulses palpable bilaterally. General Extremety ED: Yes edema; Negative for tenderness General Extremity: edema Neuro oriented x3 and CN's II-XII intact bilaterally Sensorium / Orientation: alert Motor Exam: strength 5/5 throughout Psych mental status grossly normal Skin no rashes or lesions noted, no wounds and skin turgor normal General Skin Exam: elasticity normal; Negative for jaundice or pallor MDM MDM MDM Narrative Medical decision making narrative: This could represent dependent lymphedema, right heart failure, renal disease, liver disease. Workup included CBC, BMP, troponin EKG to assess rhythm and determine if there is any EKG changes from prior. History & Record Review Additional record(s) reviewed:: Prior inpatient record, Prior outpatient record, Prior ED visit, Prior labs and Other (Outpatient records and ED records were reviewed in the HPI narrative.) Lab Data Attestation: I reviewed the patient's lab results. Lab results narrative: CBC reveals mild anemia with normal indices. Basic metabolic panel is unremarkable. 1st and 2nd troponin are normal with a delta of -1. Labs: Laboratory Results - last 24 hr 08/27/24 08/27/24 18:20 20:45 WBC 5.9 RBC 3.90 L Hgb 12.4 L Hct 35.4 L MCV 90.8 MCH 31.8 MCHC 35.0 RDW Std Deviation 42.6 RDW Coeff of Doug 13.1 Plt Count 229 MPV 8.6 Immature Gran % (Auto) 0.300 Neut % (Auto) 59.5 Lymph % (Auto) 26.5 [place] % (Auto) 10.8 H Eos % (Auto) 2.4 Baso % (Auto) 0.5 Absolute Neuts (auto) 3.5 Absolute Lymphs (auto) 1.55 Nucleated RBC % 0 Sodium 134 Potassium 4.3 Chloride 101 Carbon Dioxide 20.5 L Anion Gap 12 BUN 15 Creatinine 1.13 Estim Creat Clear Calc 80.87 Est GFR (MDRD) Non-Af 70 BUN/Creatinine Ratio 13.1 Glucose 87 Calcium 9.8 Troponin T High Sens 20 D Troponin T Hi Sens 2 Hr 19 Radiography Diagnostic Testing: Clinical Impression(s) from Imaging Studies Chest X-Ray 08/27/24 19:00 IMPRESSION: No focal consolidations. Reading Location: [facility] EKG Initial EKG: Attestation: I personally reviewed and interpreted this EKG as follows: Interpretation: Sinus Bradycardia (Rate is 56. GA interval is 184 ms. QS duration 106 ms. QT duration 476 ms. [place] is normal. Other than the bradycardia the EKG is unremarkable.) Follow-up EKG: Attestation: I personally reviewed and interpreted this EKG as follows: Interpretation: Sinus Bradycardia (Rate is 59. Patient now has a first- degree AV block with a GA interval of 212 ms. QRS duration 110 ms. QT duration 496 ms. There is nonspecific T wave changes and unchanged from EKG that was obtained earlier at 1814.) Treatment and Re-Evaluation :: Patient had episode of bradycardia at 3035. Repeat EKG was ordered per nurse. This revealed a first-degree block that was not present on the first EKG. informing that he was restarted on metoprolol which caused him to have bradycardia. He is presently on 25 mg. Will prescribe 12.5 to be given daily. He was asked to hold his next dose. He is to contact Dr. Garcia. Discharge Plan Triage Chief Complaint: Edema ED Provider: Vincent Ko Dx/Rx/DC Orders Clinical Impression: Dependent lymphedema, Hypertension, Atherosclerosis of coronary artery of sun'aq heart without angina pectoris, COPD exacerbation, BMI 33.0-33.9,adult, Sinus bradycardia, First degree heart block, Elevated blood pressure reading Instructions: ED Peripheral Edema, Bilateral Prescriptions: New metoprolol succinate 25 mg tablet extended release 24 hr 12.5 mg PO DAILY Qty: 30 0RF No Action citalopram 40 mg tablet 40 mg PO DAILY cholecalciferol (vitamin D3) [Vitamin D3] 125 mcg (5,000 unit) tablet 125 mcg PO DAILY cetirizine [Zyrtec] 10 mg tablet 10 mg PO DAILY diphenhydramine HCl [Benadryl Allergy] 25 mg tablet 25 mg PO DAILY Breztri Aerosphere 160-9-4.8 mcg/actuation HFA aerosol inhaler 2 inh inhalation BID simvastatin 20 mg tablet 20 mg PO QHS Qty: 90 3RF aripiprazole 5 mg tablet 5 mg PO DAILY Qty: 30 2RF Ozempic 0.25 mg or 0.5 mg (2 mg/3 mL) pen injector 0.25 mg subcut QWEEK 28 Days Qty: 3 0RF Rx Instructions: for 4 weeks omeprazole 40 MG capsule,delayed release(DR/EC) 40 mg PO DAILY apixaban 5 MG tablet 5 mg PO BID Qty: 120 0RF aspirin 81 mg capsule 81 mg PO DAILY morphine 15 mg tablet extended release 15 mg PO Q12H trazodone 50 mg tablet 50 - 100 mg PO QHS PRN (Reason: insomnia) isosorbide mononitrate 30 mg tablet extended release 24 hr 30 mg PO DAILY losartan 50 mg tablet 50 mg PO DAILY metoprolol succinate [Toprol XL] 50 mg tablet extended release 24 hr 25 mg PO QDAY Qty: 90 3RF Primary Care Provider: Lyudmila Brewer Referrals: Lyudmila Brewer DO [Primary Care Provider] - Activity Restrictions/Additional Instructions: 1. Discontinue taking the 50 mg metoprolol tablets. 2. A prescription for metoprolol 25 mg tablets were ordered. You are to take a half a tablet daily starting on Sunday, August 29. Do not take any metoprolol August 28. 3. You need to elevate your feet more and recommend compressive hose to help with the dependent edema. Print Language: Tamazight Disposition Disposition: Home, Self Care
[2024-08-27 22:34] VITALS: BP 131/62; PULSE 57; RESP 18; TEMP 36.7; O2SAT 95
== END 2024-08-27 22:35 | disposition home or self-care (01) ==
PROVIDERS: Emergency Provider Emergency Medicine; PCP Internal Medicine; Referring Provider Emergency Medicine; Visit Provider Emergency Medicine
DX: I89.0 Lymphedema, not elsewhere classified (principal); I11.0 Hypertensive heart disease with heart failure; I50.9 Heart failure, unspecified; J44.1 Chronic obstructive pulmonary disease with (acute) exacerbation; I48.0 Paroxysmal atrial fibrillation; Z86.711 Personal history of pulmonary embolism; I44.0 Atrioventricular block, first degree; Z86.718 Personal history of other venous thrombosis and embolism; I08.3 Combined rheumatic disorders of mitral, aortic and tricuspid valves; E78.00 Pure hypercholesterolemia, unspecified; T82.855A Stenosis of coronary artery stent, initial encounter; Z87.891 Personal history of nicotine dependence; I25.10 Atherosclerotic heart disease of native coronary artery without angina pectoris; Z95.5 Presence of coronary angioplasty implant and graft; K21.9 Gastro-esophageal reflux disease without esophagitis; R60.0 Localized edema; M79.89 Other specified soft tissue disorders; Y71.8 Miscellaneous cardiovascular devices associated with adverse incidents, not elsewhere classified
CPT/HCPCS: 71046; 80048; 84484; 85025; 93005; 99284; A4216

== ENCOUNTER → 2024-09-08 | Outpatient (CLI) | payer MEDICARE, OTHER, SELFPAY ==
[2024-09-08 18:50] LABS: Hematocrit 34.7 % (40-54); Hemoglobin 11.9 g/dL (13.0-16.5); Immature Granulocytes Count 0.030 X10^3/uL (0.0-0.0); Mean Corp Hgb Conc 34.3 g/dL (32-36); Mean Corpuscular Volume 92.3 fL (80-94); Mean Platelet Vol. 9.3 fl (6.2-12.0); NRBC Flagged by Analyzer 0 % (0-5); Platelet Count 224 K/mm3 (150-450); RBC Distribution Width CV 13.2 % (11.6-14.6); RBC Distribution Width SD 44.5 fl (35.1-43.9); Red Blood Count 3.76 M/mm3 (4.6-6.2); White Blood Count 5.0 K/mm3 (4.4-11.0)
[2024-09-08 19:12] LABS: Anion Gap 13 (5-15); BUN 19 mg/dL (4-19); BUN/Creat Ratio 15.7 RATIO (10-20); Calcium,Total 9.8 mg/dL (7.6-11.0); Carbon Dioxide 21.7 mmol/L (21.0-32.0); Chloride 100 mmol/L (98-108); Glucose 86 mg/dL (70-99); Potassium 4.2 mmol/L (3.3-5.1)
== END | disposition home or self-care (01) ==
LOC: MTLAB 16:12
PROVIDERS: Nurse Practitioner Family; PCP Internal Medicine; Referring Provider Internal Medicine; Visit Provider Internal Medicine
DX: Z51.81 Encounter for therapeutic drug level monitoring (principal)
CPT/HCPCS: 36415; 80048; 85025

== ENCOUNTER → 2024-09-09 | Outpatient (CLI) | payer MEDICARE, OTHER, SELFPAY | END | disposition home or self-care (01) | LOC: PSN 11:41 | PROVIDERS: PCP Internal Medicine; Referring Provider Physician Assistant Medical; Visit Provider Physician Assistant Medical | DX: R00.1 Bradycardia, unspecified (principal); I48.0 Paroxysmal atrial fibrillation; I44.0 Atrioventricular block, first degree; I25.10 Atherosclerotic heart disease of native coronary artery without angina pectoris | CPT/HCPCS: 93225; 93226 ==

== ENCOUNTER → 2024-11-11 | Outpatient (CLI) | payer MEDICARE, OTHER, SELFPAY | END | disposition home or self-care (01) | LOC: PSN 08:30 | PROVIDERS: PCP Internal Medicine; Referring Provider Internal Medicine; Visit Provider Internal Medicine | DX: J44.9 Chronic obstructive pulmonary disease, unspecified (principal) | CPT/HCPCS: 94060; 94726; 94729 ==

== ENCOUNTER → 2024-11-13 | Outpatient (CLI) | payer MEDICARE, OTHER, SELFPAY ==
[2024-11-13 11:13] VITALS: PULSE 100; PULSE 103; PULSE 107; PULSE 110; PULSE 112; PULSE 84; PULSE 90; O2SAT 92; O2SAT 93; O2SAT 94; O2SAT 95; O2SAT 96; O2SAT 97; O2SAT 98
--- NOTE | 2024-11-14 10:34 | WT_ITS ---
PSN 6 Minute Walk Test 6 Minute Walk Test 6 Minute Walk Test: 6 Minute Walk Test PSN:6-Minute Walk Test Start: 11/13/24 11:13 Freq: Status: Active Protocol: [id number].[id number] Document 11/13/24 11:13 [facility] (Rec: 11/13/24 11:23 [facility] [id number]) 6 Minute Walk Test Date Performed 11/13/24 Time Performed 11:00 Height 6 ft 3 in Weight: 240 lb Weight in Pounds 240.[address]: Lyudmila Brewer Assistive device None used: Pre-test Oxygen Delivery Room Air Method Pulse Ox (%) 98 Pulse Rate (60-100 84 beats/min) Dyspnea Xuan Scale ( 3 0-10) Reported Symptoms Increased Work of Breathing 1st minute Oxygen Delivery Room Air Method Pulse Ox (%) 97 Pulse Rate (60-100 90 beats/min) Dyspnea Xuan Scale ( 3 0-10) Number of Rests 0 Taken Reported Symptoms Increased Work of Breathing 2nd minute Oxygen Delivery Room Air Method Pulse Ox (%) 96 Pulse Rate (60-100 100 beats/min) Dyspnea Xuan Scale ( 3 0-10) Number of Rests 0 Taken Reported Symptoms Increased Work of Breathing 3rd minute Oxygen Delivery Room Air Method Pulse Ox (%) 92 Pulse Rate (60-100 103 H beats/min) Dyspnea Xuan Scale ( 3 0-10) Number of Rests 0 Taken Reported Symptoms Increased Work of Breathing 4th minute Oxygen Delivery Room Air Method Pulse Ox (%) 93 Pulse Rate (60-100 107 H beats/min) Dyspnea Xuan Scale ( 4 0-10) Number of Rests 0 Taken Reported Symptoms Increased Work of Breathing 5th minute Oxygen Delivery Room Air Method Pulse Ox (%) 94 Pulse Rate (60-100 112 H beats/min) Dyspnea Xuan Scale ( 4 0-10) Number of Rests 0 Taken Reported Symptoms Increased Work of Breathing 6th minute Oxygen Delivery Room Air Method Pulse Ox (%) 95 Pulse Rate (60-100 110 H beats/min) Dyspnea Xuan Scale ( 4 0-10) Number of Rests 0 Taken Reported Symptoms Increased Work of Breathing Post-test Oxygen Delivery Room Air Method Pulse Ox (%) 97 Pulse Rate (60-100 90 beats/min) Dyspnea Xuan Scale ( 3 0-10) Reported Symptoms Increased Work of Breathing Full Laps Walked 12 Partial Lap, Number 13 of Tiles Walked Total Distance 721 Walked (ft) Interpretation Interpretation: The patient ambulated 721 feet over the course of 6 minutes beginning on room air without assistive devices. Pretesting oxygen saturation was noted to be 98% on room air. With ambulation, the spencer oxygen saturation was 92%. This represents a significant exertional oxygen desaturation, consistent with a pulmonary limitation to exercise tolerance. Recommendations Recommendations: There is no indication for the use of supplemental oxygen at this time.
== END | disposition home or self-care (01) ==
LOC: PSN 10:52
PROVIDERS: PCP Internal Medicine; Referring Provider Internal Medicine; Visit Provider Internal Medicine
DX: J44.9 Chronic obstructive pulmonary disease, unspecified (principal)
CPT/HCPCS: 94618

== ENCOUNTER → 2024-11-25 | Outpatient (CLI) | payer MEDICARE, OTHER, SELFPAY ==
--- OUTSIDE RECORDS SUMMARY | 2024-11-14 15:11 | XMS RPT_ITS ---
Author Name Auto Generated Organization OHIP Care Team Providers Care Commercial Loan Coordinator Name Role Phone LAUREL, CHAPIN Ayala Referring Unavailable DEVANG, ALEJANDRA GARZON Primary Care Unavailab le MASCI, CHAPIN Ayala Attending Unavailable MASCI, CHAPIN Ayala Referring Unavailable DEVANG, ALEJANDRA GARZON Primary Care Unavailab le DEVANG, ALEJANDRA GARZON Primary Care Unavailab le MASCI, CHAPIN Ayala Referring Unavailable DEVANG, ALEJANDRA GARZON Primary Care Unavailab le MASCI, CHAPIN Ayala Referring Unavailable MASCI, CHAPIN Ayala Referring Unavailable DEVANG, ALEJANDRA GARZON Primary Care Unavailab le MASCI, CHAPIN Ayala Referring Unavailable DEVANG, ALEJANDRA GARZON Primary Care Unavailab le MASCI, CHAPIN Ayala Referring Unavailable DEVANG, ALEJANDRA GARZON Primary Care Unavailab le DEVANG, ALEJANDRA GARZON Primary Care Unavailab le MASCI, CHAPIN Ayala Attending Unavailable MASCI, CHAPIN Ayala Referring Unavailable DEVANG, ALEJANDRA GARZON Primary Care Unavailab le ABRAMOVICHYUMIKO Referring Unavailable DEVANG, ALEJANDRA GARZON Primary Care Unavailab le MASCI, CHAPIN Ayala Referring Unavailable HERNÁNDEZISRAEL Attending Unavailable DEVANG, ALEJANDRA GARZON Primary Care Unavailab le PROBLEMS DATE TYPE CONDITION / CODE ATTENDING STATUS [facility] 05/11/2006 Active Malignant neopla sm of prostate (HCC) / C61(ICD-10) NA Active [facility] 11/14/2024 Active Hypercalcemia / E83.52(ICD-10) NA Active [facility] 11/11/2024 Active Lung nodule / R91.1(ICD-10) NA A ctive [facility] 05/30/2024 Active Lung nodules / R91.8(ICD-10) NA Active [facility] 09/07/2020 Active Other chronic pu lmonary embolism without acute cor pulmonale (HCC) / I27.82(ICD-10) NA Active [facility] PROCEDURES No Procedure Records Found RESULTS CNPN Observed: 11/21/2024 12:00 AM Status: COMPLETED Source: [facility] Telephone (HEMAWS) EMREJUNAID Jessica ([id number]) 1955 M Date Time Provider Department 11/21/24 CHAPIN BARRAGAN During your visit today, we recorded the following information about you: Linh Pollard 11/21/2024 11:40 AM Addendum Patient called requesting something to calm him down prior to Pet Scan on Sunday. [facility]. Please advise. Informed if something is given he would need a public transit trolley driver. Pt. Voiced undestanding. Chapin Barragan DO 11/21/2024 5:51 PM Signed The following approved medication requests have been transmitted electronically. Requested Prescriptions Signed Prescriptions Disp Refills LORazepam (ATIVAN) 0.5 mg 1 tablet 0 Sig: Take 1 tablet by mouth one time only for 1 dose. about 1 hour prior to PET scan. Authorizing Provider: CHAPIN BARRAGAN DO Blake, Pamela S, LPN 11/24/2024 9:02 AM Signed Pt. notified voiced understanding. FLIP Van Melissa 11/24/2024 10:38 AM Signed Patient called stating he went to [facility] and they do not have prescription request. Please resubmit. Betty Quiñones LPN 11/24/2024 11:22 AM Signed Rx was sent to [facility], spoke with , they will pick it up at [facility]). Betty Quiñones LPN Allergies As of Date: 11/21/2024 Noted Allergy Reaction VICODIN (HYDROCODONE-ACETAMINOPHE*04/12/2006 9 - Itching Date Reviewed: 11/14/2024 Reviewed by: Chapin Barragan DO - Fully Assessed Reason for Visit: Patient Question [3027] Primary Visit Diagnosis:Malignant neoplasm of prostate (HCC) [C61] Other Visit Diagnosis:Other chronic pulmonary embolism without acute cor pulmonale (HCC) [I27.82] Order(s):[] LORazepam (ATIVAN) 0.5 mgTake 1 tablet by mouth one time only for 1 dose. about 1 hour prior to PET scan.Disp: 1 tabletRfl: 0 Prescriptions as of 11/24/2024 - DULoxetine DR (CYMBALTA) 60 mg capsule Take 1 capsule by mouth once daily. - BREZTRI AEROSPHERE 160-9-4.8 mcg/actuation HFA aerosol inhaler Inhale 2 puffs as instructed two times a day. - simvastatin (ZOCOR) 20 mg tablet Take 20 mg by mouth daily at bedtime. - ARIPiprazole (ABILIFY) 5 mg tablet Take 1 tablet by mouth once daily. - aspirin 81 mg cap Take 1 tablet by mouth once daily. - traZODone (DESYREL) 50 mg tablet Take 50 mg by mouth daily at bedtime. - omeprazole (PRILOSEC) 40 mg capsule Take 40 mg by mouth once daily. - cetirizine (ZYRTEC) 10 mg tablet Take 10 mg by mouth once daily. - morphine SR (MS CONTIN) 15 mg 12 hr tablet Take 5 mg by mouth two times a day. - diphenhydrAMINE (BENADRYL) 25 mg tablet Take 50 mg by mouth at bedtime as needed. - apixaban (ELIQUIS) 5 mg tab(s) Take 5 mg by mouth twice daily. - losartan (COZAAR) 50 mg tablet Take 50 mg by mouth once daily. - citalopram (CELEXA) 20 mg tablet Take 40 mg by mouth once daily. - Cholecalciferol, Vitamin D3, 25 mcg (1,000 unit) cap Take 1,000 Units by mouth once daily. Problem List As Of Date 11/21/2024 Noted Resolved MALIGN NEOPL PROSTATE [C61] 05/11/2006 LOC PRIM OSTEOART-UNSPEC [M19.91] 08/19/2007 JOINT PAIN-UP/ARM [M25.529] 09/16/2007 SURGERY FOLLOWUP NEC [Z09] 10/10/2007 Pulmonary embolus (HCC) [I26.99] 09/07/2020 Prescriptions ordered this encounter Disp Refills Start End LORAZEPAM 0.5 MG TABLET 1 ta* 0 11/21/2024 11/21/2024 Route: PO Sig: Take 1 tablet by mouth one time only for 1 dose. about 1 hour prior to PET scan. Encounter Status:Closed by BETTY QUIÑONES on 11/24/24 PROGRESS Observed: 11/14/2024 3:41 PM Status: COMPLETED Source: [facility] HNO ID: [id number] Author: CHAPIN BARRAGAN, DO Service: ? Author Type: Physician Type: Progress Notes Filed: 11/16/2024 13:02 Note Text: Diagnosis: 1) Castrate sensitive prostate cancer. 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 Was found to have an elevated PSA in early 2006 as part of routine testing. Was referred to Dr. Song who repeated PSA (4.38 ng/mL) and performed biopsy 04/2006. 1. LEFT PROSTATE, NEEDLE BIOPSIES (A) - BENIGN PROSTATIC TISSUE. - BENIGN PORTION OF SEMINAL VESICLE/EJACULATORY. 2. RIGHT PROSTATE, NEEDLE BIOPSIES (B) - ADENOCARCINOMA OF THE PROSTATE, NANY SCORE 4+3=7 INVOLVING 6 OF 8 CORES (90%, 90%, 90%, 40%, 10%, AND 5% OF THE LENGTH OF EACH CORE). - HIGH-GRADE PROSTATIC INTRAEPITHELIAL NEOPLASIA. - PERINEURAL INVASION IS IDENTIFIED. - BENIGN FRAGMENT OF SEMINAL VESICLE/EJACULATORY DUCT. Patient sought opinion at [facility] where he underwent robotic prostatectomy summer 2006. Pathology showed extracapsular extension but negative margins. Pelvic lymph nodes were negative. He had been found to have a rising PSA following an undetectable PSA for approximately 2 years following surgery. In November 2008, the PSA was 0.1 ng per mL. Increase to 0.3 ng per mL in September of 2009. He was found to be 0.4 ng per mL in October 2010 with a subsequent increase to 1.44 ng/mL in April of 2012. Underwent salvage radiation 08/15/12 to 10/08/12. The patient has chronic low back pain. 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 MRI lumbar spine 10/18/2018: There is a new, large central and right paracentral disc protrusion at L3-L4 with inferior migration as described in detail above. Mild to moderate multilevel degenerative disc disease as described above. Underwent left knee replacement on 07/28/2019. Pathology demonstrated degenerative joint disease. He was on aspirin following surgery. He presented to the ED on 07/31 with complaints of increasing shortness of breath. CT chest 08/01/2019: There is evidence of intraluminal filling defects in the right interlobar artery as well as multiple branches in the right lower lobe pulmonary artery. This is in keeping with pulmonary emboli. There is also evidence of intraluminal filling defects in the left lower lobe pulmonary arterial branches. Normal thoracic aorta and visualized great vessels. There is no demonstrated aortic dissection. Normal heart and pericardium. There are visualized mediastinal lymph nodes, which are within normal size limits, and with normal morphology. Normal hilar regions. Normal visualized trachea and bronchi. The lungs are well expanded. Normal pulmonary parenchyma. Normal pleura. Normal chest wall structures. There are degenerative changes of thoracic spine. There is a 3 cm x 2.1 cm cyst in the medial upper pole of the left kidney. Small hiatal hernia. IMPRESSION: Pulmonary emboli in the right interlobar artery extending into the right lower lobe pulmonary arterial branches as well as multiple pulmonary emboli in left lower lobe pulmonary arterial branches. Only the proximal veins were examined on the right. On the left the proximal and below knee veins were assessed. Anticoagulated on Eliquis. His PCP advised him to seek my opinion regarding duration of anticoagulation and whether or not hypercoagulability testing indicated. Current therapy: 1) Leuprolide. Was having much more labile mood despite use of Celexa. He was also having more hot flashes and frustrated over lack of libido. Had a URI with cough. Blood tinged sputum. CTA chest [facility] 05/03. No PE. 2.1 x1.5 x1.7 cm spiculated mass peripheral lateral RUL. Referred to Dr. Parisi. PET 05/30/2022--RUL lesion 16.4 mm SUV 3.5 fulfilled criteria for neoplasm. Additional RUL nodule SUV 1.8. Not malignant. CT guided core needle (5 cores) of nodule 06/16/2022. Pathology: Mild fibrosis, anthracotic pigment, no cancer. Presents for ongoing oncologic management. Interim history: Chronic LBP did worsen. Had recent injection. Rx duloxetine. Helping. Worsening dyspnea. 6 minute walking test--was told he did good. Had PFTs recently at [facility]. Was told okay. endorses he's been consistent with apixaban. No hot flashes in a long time. Nocturia--Three times a night. PMH, medications and allergies personally reviewed by me today. Any changes documented in appropriate section. ROS: Constitutional: Denies episodes of fever and night sweats. Not significantly fatigued. Neuro: Denies NIETO, vertigo and imbalance. No symptoms of neuropathy. HEENT: No recent change in voice, vision or hearing. Resp: Denies cough, wheeze and hemoptysis. No shortness of breath at rest. No GRIFFIN. CVS: Denies exertional chest pain, PND, orthopnea and LE edema. GI: Denies reflux, n/v, change in bowel habits and abdominal pain. No symptoms of stomatitis. Derm: No rash. Heme: No unusual bleeding or bruising. Psych: Depressed mood over current medical circumstances.. PHYSICAL EXAM: VITALS: Blood pressure 134/76, pulse 81, temperature 36.7 ?C (98 ?F), temperature source Temporal, weight 108.4 kg (239 lb), SpO2 99%. Well-appearing and in no acute distress. EYES: Sclerae are anicteric bilaterally. LYMPHATIC: There is no palpable cervical or supraclavicular adenopathy. RESPIRATORY: Inspiratory breath sounds are of normal intensity in all vargas. No rales, wheezes or rhonchi. Expiratory phase is normal. CARDIOVASCULAR: Rhythm is regular, ABD: Non-distended. Extremities: No swelling or edema. ASSESSMENT/PLAN: (C61) Malignant neoplasm of prostate (HCC) (primary encounter diagnosis) Assessment: -Biochemical progression of prostate cancer following robotic prostatectomy summer 2006. -Underwent salvage radiation 07/2012. -Castration sensitive M0 disease. -Reviewed other labs as well. -History of mild hypercalcemia with high normal PTH. -Discussion of goals of care. Prolongation of survival with ADT, but his mental issues are quite significant--unclear if exacerbated by testosterone suppression. -Difficult management situation. Reviewed PSA--trending higher. Will obtain PET--May be a candidate for RT if oligomets or localized disease. Plan: -PSMA PET. (I27.82) Chronic pulmonary embolism without acute cor pulmonale, unspecified pulmonary embolism type (HCC) Assessment: -Postoperative pulmonary embolism. -Episode of pulmonary embolus him in 2016. Ultrasound legs at that time negative. No provoking factors. -He is tolerating anticoagulation without any unusual bleeding or unexplained bruising. -Reviewed CBC. Platelet count remains normal. Plan: -Indefinite anticoagulation (active malignancy and previous unprovoked PE). Lung nodule. Assessment: -Biopsy negative. -Following with pulmonology at [facility]. Plan: -Follow up with Dr. Elvis Yin at [facility]. Hypercalcemia. Assessment: -Had in the past. -Reviewed lab results thus far. -Likely primary hyperparathyroidism, but awaiting PTH related hormone. Plan: -Further recs once resulted. Portions of this documentation were copied and pasted from my previous office visit note dated 05/20/2024 in order to provide a cohesive continuity of the history. The note has been reviewed and edited and updated as necessary. Chapin Barragan DO CNOVSP Observed: 11/14/2024 3:30 PM Status: COMPLETED Source: [facility] Visit (SP) Office (PAULINE) JUNAID SAHU ([id number]) 1955 M Date Time Provider Department 11/14/24 3:30 PM CHAPIN BARRAGAN During your visit today, we recorded the following information about you: Temperature Pulse Blood pressure Weight 98 degrees 81/minute 134/76 108.4 kg Chapin Barragan DO 11/16/2024 1:02 PM Signed Diagnosis: 1) Castrate sensitive prostate cancer. 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 Was found to have an elevated PSA in early 2006 as part of routine testing. Was referred to Dr. Song who repeated PSA (4.38 ng/mL) and performed biopsy 04/2006. 1. LEFT PROSTATE, NEEDLE BIOPSIES (A) - BENIGN PROSTATIC TISSUE. - BENIGN PORTION OF SEMINAL VESICLE/EJACULATORY. 2. RIGHT PROSTATE, NEEDLE BIOPSIES (B) - ADENOCARCINOMA OF THE PROSTATE, NANY SCORE 4+3=7 INVOLVING 6 OF 8 CORES (90%, 90%, 90%, 40%, 10%, AND 5% OF THE LENGTH OF EACH CORE). - HIGH-GRADE PROSTATIC INTRAEPITHELIAL NEOPLASIA. - PERINEURAL INVASION IS IDENTIFIED. - BENIGN FRAGMENT OF SEMINAL VESICLE/EJACULATORY DUCT. Patient sought opinion at [facility] where he underwent robotic prostatectomy summer 2006. Pathology showed extracapsular extension but negative margins. Pelvic lymph nodes were negative. He had been found to have a rising PSA following an undetectable PSA for approximately 2 years following surgery. In November 2008, the PSA was 0.1 ng per mL. Increase to 0.3 ng per mL in September of 2009. He was found to be 0.4 ng per mL in October 2010 with a subsequent increase to 1.44 ng/mL in April of 2012. Underwent salvage radiation 08/15/12 to 10/08/12. The patient has chronic low back pain. 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 MRI lumbar spine 10/18/2018: There is a new, large central and right paracentral disc protrusion at L3-L4 with inferior migration as described in detail above. Mild to moderate multilevel degenerative disc disease as described above. Underwent left knee replacement on 07/28/2019. Pathology demonstrated degenerative joint disease. He was on aspirin following surgery. He presented to the ED on 07/31 with complaints of increasing shortness of breath. CT chest 08/01/2019: There is evidence of intraluminal filling defects in the right interlobar artery as well as multiple branches in the right lower lobe pulmonary artery. This is in keeping with pulmonary emboli. There is also evidence of intraluminal filling defects in the left lower lobe pulmonary arterial branches. Normal thoracic aorta and visualized great vessels. There is no demonstrated aortic dissection. Normal heart and pericardium. There are visualized mediastinal lymph nodes, which are within normal size limits, and with normal morphology. Normal hilar regions. Normal visualized trachea and bronchi. The lungs are well expanded. Normal pulmonary parenchyma. Normal pleura. Normal chest wall structures. There are degenerative changes of thoracic spine. There is a 3 cm x 2.1 cm cyst in the medial upper pole of the left kidney. Small hiatal hernia. IMPRESSION: Pulmonary emboli in the right interlobar artery extending into the right lower lobe pulmonary arterial branches as well as multiple pulmonary emboli in left lower lobe pulmonary arterial branches. Only the proximal veins were examined on the right. On the left the proximal and below knee veins were assessed. Anticoagulated on Eliquis. His PCP advised him to seek my opinion regarding duration of anticoagulation and whether or not hypercoagulability testing indicated. Current therapy: 1) Leuprolide. Was having much more labile mood despite use of Celexa. He was also having more hot flashes and frustrated over lack of libido. Had a URI with cough. Blood tinged sputum. CTA chest [facility] 05/03. No PE. 2.1 x1.5 x1.7 cm spiculated mass peripheral lateral RUL. Referred to Dr. Parisi. PET 05/30/2022--RUL lesion 16.4 mm SUV 3.5 fulfilled criteria for neoplasm. Additional RUL nodule SUV 1.8. Not malignant. CT guided core needle (5 cores) of nodule 06/16/2022. Pathology: Mild fibrosis, anthracotic pigment, no cancer. Presents for ongoing oncologic management. Interim history: Chronic LBP did worsen. Had recent injection. Rx duloxetine. Helping. Worsening dyspnea. 6 minute walking test--was told he did good. Had PFTs recently at [facility]. Was told okay. endorses he's been consistent with apixaban. No hot flashes in a long time. Nocturia--Three times a night. PMH, medications and allergies personally reviewed by me today. Any changes documented in appropriate section. ROS: Constitutional: Denies episodes of fever and night sweats. Not significantly fatigued. Neuro: Denies NIETO, vertigo and imbalance. No symptoms of neuropathy. HEENT: No recent change in voice, vision or hearing. Resp: Denies cough, wheeze and hemoptysis. No shortness of breath at rest. No GRIFFIN. CVS: Denies exertional chest pain, PND, orthopnea and LE edema. GI: Denies reflux, n/v, change in bowel habits and abdominal pain. No symptoms of stomatitis. Derm: No rash. Heme: No unusual bleeding or bruising. Psych: Depressed mood over current medical circumstances.. PHYSICAL EXAM: VITALS: Blood pressure 134/76, pulse 81, temperature 36.7 ?C (98 ?F), temperature source Temporal, weight 108.4 kg (239 lb), SpO2 99%. Well-appearing and in no acute distress. EYES: Sclerae are anicteric bilaterally. LYMPHATIC: There is no palpable cervical or supraclavicular adenopathy. RESPIRATORY: Inspiratory breath sounds are of normal intensity in all vargas. No rales, wheezes or rhonchi. Expiratory phase is normal. CARDIOVASCULAR: Rhythm is regular, ABD: Non-distended. Extremities: No swelling or edema. ASSESSMENT/PLAN: (C61) Malignant neoplasm of prostate (HCC) (primary encounter diagnosis) Assessment: -Biochemical progression of prostate cancer following robotic prostatectomy summer 2006. -Underwent salvage radiation 07/2012. -Castration sensitive M0 disease. -Reviewed other labs as well. -History of mild hypercalcemia with high normal PTH. -Discussion of goals of care. Prolongation of survival with ADT, but his mental issues are quite significant--unclear if exacerbated by testosterone suppression. -Difficult management situation. Reviewed PSA--trending higher. Will obtain PET--May be a candidate for RT if oligomets or localized disease. Plan: -PSMA PET. (I27.82) Chronic pulmonary embolism without acute cor pulmonale, unspecified pulmonary embolism type (HCC) Assessment: -Postoperative pulmonary embolism. -Episode of pulmonary embolus him in 2015. Ultrasound legs at that time negative. No provoking factors. -He is tolerating anticoagulation without any unusual bleeding or unexplained bruising. -Reviewed CBC. Platelet count remains normal. Plan: -Indefinite anticoagulation (active malignancy and previous unprovoked PE). Lung nodule. Assessment: -Biopsy negative. -Following with pulmonology at [facility]. Plan: -Follow up with Dr. Elvis Yin at [facility]. Hypercalcemia. Assessment: -Had in the past. -Reviewed lab results thus far. -Likely primary hyperparathyroidism, but awaiting PTH related hormone. Plan: -Further recs once resulted. Portions of this documentation were copied and pasted from my previous office visit note dated 05/20/2024 in order to provide a cohesive continuity of the history. The note has been reviewed and edited and updated as necessary. Chapin Barragan DO Referring Provider: CHAPIN BARRAGAN [[id number]] Allergies As of Date: 11/14/2024 Noted Allergy Reaction VICODIN (HYDROCODONE-ACETAMINOPHE*04/12/2006 9 - Itching Date Reviewed: 11/14/2024 Reviewed by: Chapin Barragan DO - Fully Assessed Reason for Visit: Established Patient [175] Primary Visit Diagnosis:Malignant neoplasm of prostate (HCC) [C61] Other Visit Diagnoses:Other chronic pulmonary embolism without acute cor pulmonale (HCC) [I27.82] Lung nodules [R91.8] Hypercalcemia [E83.52] Order(s):NM PET/CT PROSTATE WHOLE BODY IMAGING [3109021] Order #: [id number] FUTURE Level of Service: OFFICE/OUTPATIENT ESTABLISHED LOW MDM 20 MIN [99659] Additional E/M codes: VISIT CPLX INHERENT EANDM ASSOC WITH MED * Follow-up and Disposition History for Encounter Date Provider Department Center 11/14/2024 [id number] Prescriptions as of 11/16/2024 - DULoxetine DR (CYMBALTA) 60 mg capsule Take 1 capsule by mouth once daily. - BREZTRI AEROSPHERE 160-9-4.8 mcg/actuation HFA aerosol inhaler Inhale 2 puffs as instructed two times a day. - simvastatin (ZOCOR) 20 mg tablet Take 20 mg by mouth daily at bedtime. - ARIPiprazole (ABILIFY) 5 mg tablet Take 1 tablet by mouth once daily. - aspirin 81 mg cap Take 1 tablet by mouth once daily. - traZODone (DESYREL) 50 mg tablet Take 50 mg by mouth daily at bedtime. - omeprazole (PRILOSEC) 40 mg capsule Take 40 mg by mouth once daily. - cetirizine (ZYRTEC) 10 mg tablet Take 10 mg by mouth once daily. - morphine SR (MS CONTIN) 15 mg 12 hr tablet Take 5 mg by mouth two times a day. - diphenhydrAMINE (BENADRYL) 25 mg tablet Take 50 mg by mouth at bedtime as needed. - apixaban (ELIQUIS) 5 mg tab(s) Take 5 mg by mouth twice daily. - losartan (COZAAR) 50 mg tablet Take 50 mg by mouth once daily. - citalopram (CELEXA) 20 mg tablet Take 40 mg by mouth once daily. - Cholecalciferol, Vitamin D3, 25 mcg (1,000 unit) cap Take 1,000 Units by mouth once daily. Medication notes this encounter TRAZODONE 50 MG TABLET >> Casey Carlin MA 11/14/2024 3:22 PM >> CASEY CARLIN SunNov 14, 2024 3:22 PM 3 tablets at bedtime OMEPRAZOLE 40 MG CAPSULE,DELAYED RELEASE >> Casey Carlin MA 11/14/2024 3:21 PM >> CASEY CARLIN SunNov 14, 2024 3:21 PM Problem List As Of Date 11/14/2024 Noted Resolved MALIGN NEOPL PROSTATE [C61] 05/11/2006 LOC PRIM OSTEOART-UNSPEC [M19.91] 08/19/2007 JOINT PAIN-UP/ARM [M25.529] 09/16/2007 SURGERY FOLLOWUP NEC [Z09] 10/10/2007 Pulmonary embolus (HCC) [I26.99] 09/07/2020 Encounter Status:Closed by CHAPIN BARRAGAN on 11/16/24 CA-I SERPL-SCNC Collected: 3:15 PM Status: F Source: [facility] Order Comment: Specimen Type : BLOOD SPECIMEN Ordering Facility: [facility] Address: [address] [place] [address] TYPE CODE TESTS RESULT OUT OF RANGE REFERENCE UNITS LAB 56875-5([facility]) Ca-I adj pH7.4 Bld-sCnc 1.32 High 1.08-1.30 mmol/L LAB 93496-8([facility]) Ca-I Bld-mCnc 1.40 High 1.08-1.30 mmol/L Performed By: #### 1995-0 ## ## [facility] CLIA [id number] [address] [place] [address] [place] Observed: 11/14/2024 12:00 AM Status: COMPLETED Source: [facility] Telephone (HEMAWS) JUNAID SAHU ([id number]) 1955 M Date Time Provider Department 11/14/24 CHAPIN BARRAGAN During your visit today, we recorded the following information about you: Kell Tovar 11/14/2024 4:12 PM Signed PSMA PET scan at [facility] THEN OV 1 week later.faxed over to [facility] Shawna Montero 11/18/2024 12:21 PM Signed Called patient to see if Pet Scan has been scheduled. He said no. Re faxing to [facility]. Patient will call back by Sunday if they haven't called him. Linh Ramirez 11/20/2024 9:10 AM Signed Pet 11/25 ov scheduled with spouse Allergies As of Date: 11/14/2024 Noted Allergy Reaction VICODIN (HYDROCODONE-ACETAMINOPHE*04/12/2006 9 - Itching Date Reviewed: 11/14/2024 Reviewed by: Chapin Barragan DO - Fully Assessed Prescriptions as of 11/20/2024 - DULoxetine (CYMBALTA) 60 mg capsule Take 1 capsule by mouth once daily. - BREZTRI AEROSPHERE 160-9-4.8 mcg/actuation HFA aerosol inhaler Inhale 2 puffs as instructed two times a day. - simvastatin (ZOCOR) 20 mg tablet Take 20 mg by mouth daily at bedtime. - ARIPiprazole (ABILIFY) 5 mg tablet Take 1 tablet by mouth once daily. - aspirin 81 mg cap Take 1 tablet by mouth once daily. - traZODone (DESYREL) 50 mg tablet Take 50 mg by mouth daily at bedtime. - omeprazole (PRILOSEC) 40 mg capsule Take 40 mg by mouth once daily. - cetirizine (ZYRTEC) 10 mg tablet Take 10 mg by mouth once daily. - morphine SR (MS CONTIN) 15 mg 12 hr tablet Take 5 mg by mouth two times a day. - diphenhydrAMINE (BENADRYL) 25 mg tablet Take 50 mg by mouth at bedtime as needed. - apixaban (ELIQUIS) 5 mg tab(s) Take 5 mg by mouth twice daily. - losartan (COZAAR) 50 mg tablet Take 50 mg by mouth once daily. - citalopram (CELEXA) 20 mg tablet Take 40 mg by mouth once daily. - Cholecalciferol, Vitamin D3, 25 mcg (1,000 unit) cap Take 1,000 Units by mouth once daily. Problem List As Of Date 11/14/2024 Noted Resolved MALIGN NEOPL PROSTATE [C61] 05/11/2006 LOC PRIM OSTEOART-UNSPEC [M19.91] 08/19/2007 JOINT PAIN-UP/ARM [M25.529] 09/16/2007 SURGERY FOLLOWUP NEC [Z09] 10/10/2007 Pulmonary embolus (HCC) [I26.99] 09/07/2020 Encounter Status:Closed by LINH POLLARD on 11/20/24 PTH RELATED PEPTIDE Collected: 11/13/19 8:03 AM Status: F Source: [facility] Order Comment: Specimen Type : BLOOD SPECIMEN Ordering Facility: [facility] Address: [address] [place] [address] TYPE CODE TESTS RESULT OUT OF RANGE REFERENCE UNITS LAB PTHP PTH RELATED PEPTIDE 2.5 High 0.0-2.3 pmol/L Result Comment: INTERPRETIVE INFORMATION: Parathyroid Hormone-Related Peptide This test was developed and its performance characteristics determined by [facility]. It has not been cleared or approved by the US Food and Drug Administration. This test was performed in a CLIA certified laboratory and is intended for clinical purposes. Performed By: [facility] [address] [place] [address] Shank Breaker: Enio Schmidt MD, PhD CLIA Number: [id number] Performed By: #### PTHPEP ## ## [facility] CLIA [id number] [address] [place] [address] PTH-INTACT SERPL-MCNC Collected: 11/12/2024 8:03 AM Status: F Source: [facility] Order Comment: Specimen Type : BLOOD SPECIMEN Ordering Facility: [facility] Address: [address] [place] [address] TYPE CODE TESTS RESULT OUT OF RANGE REFERENCE UNITS LAB 2731-8([facility]) PTH-Intact SerPl-mCnc 44 15-65 pg/mL Performed By: #### 2731-8 ## ## [facility] CLIA [id number] [address] [place] [address] OF [facility] CBC W AUTO DIFF BLD Collected: 11/11/2024 7:[address] atus: F Source: [facility] Comment: Specimen Type : BLOOD SPECIMEN Ordering Facility: [facility] Address: [address] [place] [address] TYPE CODE TESTS RESULT OUT OF RANGE REFERENCE UNITS LAB 6690-2([facility]) WBC # Bld Auto 5.81 3.70-11.00 k/uL LAB 789-8([facility]) RBC # Bld Auto 4.87 4.20-6.00 m/ uL LAB 718-7([facility]) Hgb Bld-mCnc 15.6 13.0-17.0 g/dL LAB 4544-3([facility]) Hct VFr Bld Auto 43.9 39.0-51.0 % LAB 787-2([facility]) MCV RBC Auto 90.1 80.0-100.0 fL LAB 785-6([facility]) MCH RBC Qn Auto 32.0 26.0-34.0 p g [facility] 786[facility] MCHC RBC Auto-mCnc 35.5 30.5-36.0 g/dL LAB 78752-6([facility]) RDW RBC-Rto 12.4 11.5-15.0 % LAB 777-3([facility]) Platelet # Bld Auto 239 150-400 k/uL LAB 34683-5([facility]) PMV Bld Auto 8.8 Low 9.0-12.7 fL LAB 770-8([facility]) Neutrophils/leuk NFr Bld Auto 52.4 % LAB 751-8([facility]) Neutrophils # Bld Auto 3.04 1.45-7.50 k/uL LAB 736-9([facility]) Lymphocytes/leuk NFr Bld Auto 35.8 % LAB 731-0([facility]) Lymphocytes # Bld Auto 2.08 1.00-4.00 k/uL LAB 5905-5([facility]) Monocytes/leuk NFr Bld Auto 8.4 % LAB 742-7([facility]) Monocytes # Bld Auto 0.49 <0.87 k/uL LAB 713-8([facility]) Eosinophil/leuk NFr Bld Auto 2.2 % LAB 711-2([facility]) Eosinophil # Bld Auto 0.13 <0.46 k/uL LAB 706-2([facility]) Basophils/leuk NFr Bld Auto 0.9 % LAB 704-7([facility]) Basophils # Bld Auto 0.05 <0.11 k/uL LAB 55424-0([facility]) Imm Granulocytes/mary beth k NFr Bld Auto 0.3 % LAB 77954-7([facility]) Imm Granulocytes # Bld Auto <0.03 <0.10 k/uL LAB 23070-4([facility]) nRBC/100 WBC Bld-Rto 0.0 /100 WBC LAB 771-6([facility]) nRBC # Bld Auto <0.01 <0.01 k/u L LAB 77706-0([facility]) Differential method Bld Auto Performed By: #### 10906-4 # ### [facility] CLIA [id number] [address] [place] [address] [place] PSA SERPL-MCNC Collected: 5 7:04 AM Status: F Source: [facility] Order Comment: Specimen Type : BLOOD SPECIMEN Ordering Facility: [facility] Address: [address] [place] [address] TYPE CODE TESTS RESULT OUT OF RANGE REFERENCE UNITS LAB 2857-1([facility]) PSA SerPl-mCnc 0.72 <2.60 ng/mL Result Comment: Total PSA te st methodology used is the Electrochemiluminescence Immunoassay by [employer]. Total PSA values by differing methodologies cannot be interchanged. Performed By: #### 2857-1 ## ## [facility] CLIA [id number] [address] [place] [address] [place] [address] [place] COMP METAB 2000 PNL SERPL Collected: 7:04 AM Status: F Source: [facility] Order Comment: Specimen Type : BLOOD SPECIMEN Ordering Facility: [facility] Address: [address] [place] [address] TYPE CODE TESTS RESULT OUT OF RANGE REFERENCE UNITS LAB 2885-2(LOINC) Prot SerPl-mCnc 8.0 6.3-8.0 g/dL LAB 1751-7(LOINC) Albumin SerPl-mCnc 4.5 3.9-4.9 g/dL LAB 59886-9(LOINC) Calcium SerPl-mCnc 11.1 High 8.5-10.2 mg/dL LAB 1975-2(LOINC) Bilirub SerPl-mCnc 0.7 0.2-1.3 mg/dL LAB 6768-6(LOINC) ALP SerPl-cCnc 115 High 38-113 U/L LAB 1920-8(LOINC) AST SerPl-cCnc 25 14-40 U/L LAB 1742-6(LOINC) ALT SerPl-cCnc 33 10-54 U/L LAB 2345-7(LOINC) Glucose SerPl-mCnc 109 High 74-99 mg/dL Result Comment: The [place] [employer] (ADA) provides guidance for cutoff values for fasting glucose and random glucose. The ADA defines fasting as no caloric intake for at least 8 hours. Fasting plasma glucose results between 100 to 125 mg/dL indicate increased risk for diabetes (prediabetes). Fasting plasma glucose results greater than or equal to 126 mg/dL meet the criteria for diagnosis of diabetes. In the absence of unequivocal hyperglycemia, results should be confirmed by repeat testing. In a patient with classic symptoms of hyperglycemia or hyperglycemic crisis, random plasma glucose results greater than or equal to 200 mg/dL meet the criteria for diagnosis of diabetes. Reference: Standards of Medical Care in Diabetes 2016, [place] [employer] Association. Diabetes Care. 2016.39(Suppl 1). LAB 3094-0(LOINC) BUN SerPl-mCnc 19 9-24 mg/dL LAB 2160-0(LOINC) Creat SerPl-mCnc 1.10 0.73-1.22 mg/dL LAB 2951-2(LOINC) Sodium SerPl-sCnc 137 136-144 mmol/L LAB 2823-3(LOINC) Potassium SerPl-sCnc 4.1 3.7-5.1 mmol/L LAB 2075-0(LOINC) Chloride SerPl-sCnc 99 98-107 mmol/L LAB 2028-9(LOINC) CO2 SerPl-sCnc 24 22-30 mmol/L LAB 12232-6(LOINC) Anion Gap SerPl-sCnc 14 8-15 mmol/L LAB 72268-8(LOINC) eGFRcr SerPlBld CKD-EPI 2020 72 >=60 mL/min/1. 73m??? Result Comment: Estimated Gl omerular Filtration Rate (eGFR) is calculated using the 2020 CKD-EPI creatinine equation. This equation utilizes serum creatinine, sex, and age as parameters. The creatinine assay has traceable calibration to isotope dilution-mass spectrometry. Refer to KDIGO guidelines for clinical interpretation. In patients with unstable renal function, e.g. those with acute kidney injury, the eGFR may not accurately reflect actual GFR. Performed By: #### 80726-6 # ### [facility] [id number] [address] OF [place] CNPN Observed: 09/10/2024 12:00 AM Status: COMPLETED Source: [facility] Telephone (PAULINE) JUNAID SAHU ([id number]) 1955 M Date Time Provider Department 09/10/24 CHAPIN BARRAGAN During your visit today, we recorded the following information about you: LaurelChapin JamieDO 09/10/2024 1:30 PM Signed Can let him know that his CT chest showed improvement with resolution of one of the nodules. Other nodules are stable. When I saw him for office visit most recently, he told me he no longer wanted to follow with Dr. Tyson. Recommend he contact his PCP for referral to a different chemistry professor for ongoing follow-up. Chapin Ayala DO Haider Barragan Brandy 09/10/2024 2:10 PM Signed I called and spoke to Junaid and he stated he received this information already and stated he will be here on 09/12/24 for the visit with . Bernabe Maloney [facility] Antonette Butcher LPN 09/11/2024 4:07 PM Signed Per jeb with Dr. Barragan- patient does not need an OV 09/12/2024, ok to cancel. PSS- please contact patient to cancel OV 09/12/2024 and reschedule lab appointment to a few days prior to OV in mid October. FLIP Elizabeth Melissa 09/11/2024 4:16 PM Signed Rescheduled with spouse. Allergies As of Date: 09/10/2024 Noted Allergy Reaction VICODIN (HYDROCODONE-ACETAMINOPHE*04/12/2006 9 - Itching Date Reviewed: 05/29/2024 Reviewed by: Marimar Merino, RT(R) - Fully Assessed Reason for Visit: Results [95] Prescriptions as of 09/11/2024 - aspirin 81 mg cap Take 1 tablet by mouth once daily. - traZODone (DESYREL) 50 mg tablet Take 50 mg by mouth daily at bedtime. - acetaminophen (TYLENOL EXTRA STRENGTH) 500 mg tablet Take 500 mg by mouth every 8 hours as needed. - sildenafil (VIAGRA) 100 mg tablet Take 1 tablet by mouth once daily as needed. - omeprazole (PRILOSEC) 40 mg capsule Take 40 mg by mouth once daily. - cetirizine (ZYRTEC) 10 mg tablet Take 10 mg by mouth once daily. - morphine SR (MS CONTIN) 15 mg 12 hr tablet Take 5 mg by mouth two times a day. - diphenhydrAMINE (BENADRYL) 25 mg tablet Take 50 mg by mouth at bedtime as needed. - apixaban (ELIQUIS) 5 mg tab(s) Take 5 mg by mouth twice daily. - losartan (COZAAR) 50 mg tablet Take 50 mg by mouth once daily. - citalopram (CELEXA) 20 mg tablet Take 40 mg by mouth once daily. - Cholecalciferol, Vitamin D3, 25 mcg (1,000 unit) cap Take 1,000 Units by mouth once daily. Problem List As Of Date 09/10/2024 Noted Resolved MALIGN NEOPL PROSTATE [C61] 05/11/2006 LOC PRIM OSTEOART-UNSPEC [M19.91] 08/19/2007 JOINT PAIN-UP/ARM [M25.529] 09/16/2007 SURGERY FOLLOWUP NEC [Z09] 10/10/2007 Pulmonary embolus (HCC) [I26.99] 09/07/2020 Encounter Status:Closed by BERNABE MORALES on 09/10/24 CT CHEST WO IVCON Observed: 09/02/2024 9:39 AM Status: F Source: [facility] * * *Final Report* * * DATE OF EXAM: Sep 02 2024 9:39AM [facility] 0541 - CT CHEST WO IVCON / PROCEDURE REASON: multiple diagnoses * * * * Physician Interpretation * * * * EXAMINATION: CHEST CT WITHOUT CONTRAST CLINICAL HISTORY: Prostate carcinoma. Lung nodule. Technique: Spiral CT acquisition of the chest from the thoracic inlet to the upper abdomen without contrast. MQ: CTCWO_6 CT Radiation dose: Integrated Dose-length product (DLP) for this visit = 423 mGy*cm CT Dose Reduction Employed: Automated exposure control(AEC) and iterative recon Comparison: 05/30/2024 RESULT: Limitations: None. Lines, tubes, and devices: None. Lung parenchyma and airways: There is marked emphysema, with mild, diffuse bronchiectasis. Biapical fibrosis, right greater than left. Interval resolution of subpleural nodular opacity seen medially in right lower lobe, when compared to prior examination, likely infectious or inflammatory in etiology. Other pulmonary nodules are also stable. For example, there is a stable, approximately 6 mm nodule seen within the superior segment right lower lobe, near the right major fissure (series 5 image #125). There is a stable, approximately 5 mm subpleural nodule within the left apex (series 5, image #16). Other subcentimeter pulmonary nodules are also stable. There is no pneumothorax or endobronchial lesion. Pleural space: No pleural effusion. Lower neck, lymph nodes, and mediastinum: There are no pathologically enlarged axillary, mediastinal, or hilar lymph nodes. Heart, pericardium, and thoracic vessels: Atherosclerotic calcifications are present within the thoracic and coronary arteries. The heart is normal in size. There is no significant pericardial effusion. 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 Bones and soft tissues: There is multilevel degenerative change seen within the thoracic spine. Associated scoliosis of the thoracic spine. No destructive bone lesion. Upper abdomen: Nonspecific wall thickening of the stomach likely relates to underdistention. The gallbladder is relatively collapsed but is otherwise unremarkable. The liver has a nodular contour. There is a partially visualized exophytic left renal cyst. There is an approximately 1 cm right adrenal adenoma (series 5, image #218). IMPRESSION: Interval resolution of subpleural nodular opacity in the right lower lobe seen on prior examination. Findings were likely infectious or inflammatory etiology. There are stable subcentimeter pulmonary nodules seen elsewhere within the lungs. No jose l lymphadenopathy seen within the chest. Incidentally noted is ectasia of the ascending thoracic aorta, measuring approximately 4.2 cm. Tunnel Elastic Operator Zigzag: PSCB Transcribe Date/Time: Sep 08 2024 8:31A Dictated by : HARSH ARGUELLES MD This examination was interpreted and the report reviewed and electronically signed by: HARSH ARGUELLES MD on Sep 08 2024 5:01PM EST [id number] CNPN Observed: 06/03/2024 12:00 AM Status: COMPLETED Source: [facility] Telephone (HEMAWS) JUNAID SAHU ([id number]) 1955 M Date Time Provider Department 06/03/24 CHAPIN BARRAGAN During your visit today, we recorded the following information about you: Rogerselisha LovettLinh 06/03/2024 12:50 PM Signed Patient called requesting 05/30 CT report and disk. Will greens picker tomorrow around noon. Lisa Tan PSS 06/03/2024 4:39 PM Signed CD READY FOR CLOSER ON AT [facility] Allergies As of Date: 06/03/2024 Noted Allergy Reaction VICODIN (HYDROCODONE-ACETAMINOPHE*04/12/2006 9 - Itching Date Reviewed: 05/29/2024 Reviewed by: Marimar Merino, RT(R) - Fully Assessed Reason for Visit: disc [Other] Prescriptions as of 06/14/2024 - aspirin 81 mg cap Take 1 tablet by mouth once daily. - traZODone (DESYREL) 50 mg tablet Take 50 mg by mouth daily at bedtime. - acetaminophen (TYLENOL EXTRA STRENGTH) 500 mg tablet Take 500 mg by mouth every 8 hours as needed. - sildenafil (VIAGRA) 100 mg tablet Take 1 tablet by mouth once daily as needed. - omeprazole (PRILOSEC) 40 mg capsule Take 40 mg by mouth once daily. - cetirizine (ZYRTEC) 10 mg tablet Take 10 mg by mouth once daily. - morphine SR (MS CONTIN) 15 mg 12 hr tablet Take 5 mg by mouth two times a day. - diphenhydrAMINE (BENADRYL) 25 mg tablet Take 50 mg by mouth at bedtime as needed. - apixaban (ELIQUIS) 5 mg tab(s) Take 5 mg by mouth twice daily. - losartan (COZAAR) 50 mg tablet Take 50 mg by mouth once daily. - citalopram (CELEXA) 20 mg tablet Take 40 mg by mouth once daily. - Cholecalciferol, Vitamin D3, 25 mcg (1,000 unit) cap Take 1,000 Units by mouth once daily. Problem List As Of Date 06/03/2024 Noted Resolved MALIGN NEOPL PROSTATE [C61] 05/11/2006 LOC PRIM OSTEOART-UNSPEC [M19.91] 08/19/2007 JOINT PAIN-UP/ARM [M25.529] 09/16/2007 SURGERY FOLLOWUP NEC [Z09] 10/10/2007 Pulmonary embolus (HCC) [I26.99] 09/07/2020 Encounter Status:Closed by SAMANTHA LOVETT LINH on 06/14/24 CT CHEST W IVCON Observed: 05/30/2024 9:14 AM Status: F Source: [facility] * * *Final Report* * * DATE OF EXAM: May 30 2024 9:14AM [facility] 0539 - CT CHEST W IVCON / PROCEDURE REASON: multiple diagnoses * * * * Physician Interpretation * * * * EXAMINATION: CHEST CT WITH CONTRAST CLINICAL HISTORY: Lung nodules. Malignant neoplasm of the prostate. Technique: Spiral CT acquisition of the chest from the thoracic inlet to the upper abdomen following IV contrast. MQ: CTCW_6 Contrast: 50 mL Omnipaque [address] Radiation dose: Integrated Dose-length product (DLP) for this visit = 493 mGy*cm CT Dose Reduction Employed: Automated exposure control(AEC) and iterative recon Comparison: This study is correlated with patient's CT abdomen pelvis on 08/28/2019 RESULT: Limitations: None. Lines, tubes, and devices: None. Lung parenchyma and airways: The central airways are patent, with diffuse bronchial wall thickening. The bilateral lungs are remarkable for moderate centrilobular and paraseptal emphysema with upper lung predominance. There is interval development of a 1.2 cm nodular density in the right lower lobe abutting the pleural surfaces, series 11 image 41. An 8 mm nodule along the right major fissure, series 11 image 4. Also seen is a 6 mm nodule along the right major fissure, series 7 image 118. There are a few tiny nodules in the right middle lobe, series 11 image 22. Biapical scarring noted, with subpleural opacities, likely post inflammatory. No mass lesion identified. No consolidations. Pleural space: No pleural effusion. No pleural thickening. Lower neck, lymph nodes, and mediastinum: The imaged thyroid gland is normal. No lymphadenopathy in the supraclavicular, axillary, mediastinal, or hilar regions. Heart, pericardium, and thoracic vessels: The thoracic aorta and main pulmonary artery are normal in caliber. There are aortic valve calcifications. The cardiac chambers are normal in size. Punctate coronary artery atherosclerotic calcifications are noted, although the study is not optimized for coronary assessment. No pericardial effusion or thickening. Bones and soft tissues: Osteophyte formation seen in the spine. No destructive bone lesion. Chest wall is unremarkable. Upper abdomen: Limited study through the upper abdomen demonstrates a stable 1.3 cm right adrenal nodule. A 3 cm cyst is again noted in the left kidney. Localizer images: No additional findings. IMPRESSION: Interval new 1.2 cm nodular density in the right lower lobe, with multiple smaller right lung nodules. A 3 month follow-up is suggested. Moderate emphysema. No thoracic lymphadenopathy. Abdominal findings as described above. Tunnel Elastic Operator Zigzag: PSCB Transcribe Date/Time: May 30 2024 10:20A Dictated by : DEBRA DORSEY MD This examination was interpreted and the report reviewed and electronically signed by: DEBRA DORSEY MD on May 30 2024 3:12PM EST [id number] PROGRESS Observed: 05/30/2024 8:40 AM Status: COMPLETED Source: [facility] HNO ID: [id number] Author: MARIMAR MERINO RT(R) Service: ? Author Type: Outside Contractor Sales Type: Progress Notes Filed: 05/30/2024 12:46 Note Text: Radiology Service Progress Note DATE OF SERVICE: May 30, 2024 TIME: 12:46 PM PATIENT IDENTITY VERIFICATION COMPLETED USING TWO (2) STANDARD IDENTIFIERS: Name and Date of confirmed by patient verbally. FALL SCREENING: Has the patient had 2 falls in the last year or 1 fall with injury or currently using an Ambulatory Assistive Device (Walker, Cane, Wheelchair, Crutches, etc.)? No PATIENT GENDER DATA: Assigned male at PATIENT RELEVANT IMPLANT DATA REVIEWED: Yes PATIENT PRESENTS WITH AN IMPLANTABLE OR ATTACHED ASBESTOS BRAKE LINING FINISHER: No ALLERGIES: Reviewed and unchanged CONTRAST ALLERGY: NO. EXAM: CT -CONTRAST INDUCED NEPHROPATHY RISK FACTORS: Patient age > 60 years CREATININE: Creatinine Date Value Ref Range Status 05/12/2024 1.04 0.73 - 1.22 mg/dL Final 02/11/2024 1.13 0.73 - 1.22 mg/dL Final 2023 0.96 0.73 - 1.22 mg/dL Final Estimated Glomerular Filtration Rate Date Value Ref Range Status 05/12/2024 77 >=60 mL/min/1.73m? Final Comment: Estimated Glomerular Filtration Rate (eGFR) is calculated using the 2020 CKD-EPI creatinine equation. This equation utilizes serum creatinine, sex, and age as parameters. The creatinine assay has traceable calibration to isotope dilution-mass spectrometry. Refer to KDIGO guidelines for clinical interpretation. In patients with unstable renal function, e.g. those with acute kidney injury, the eGFR may not accurately reflect actual GFR. eGFR- Date Value Ref Range Status 02/10/2021 >60 Final P.O.C.T. RESULTS: POC done: Yes, See Lab Tab May 30, 2024 TREATMENT: N/A PERIPHERAL IV DATA: Ambulatory: A peripheral IV was started in the Left antecubital site with a Angio cath: 22 gauge. RADIOLOGY DEPARTMENT: CT; Exam(s) Completed: Chest SIGNATURE: RT David(R) PATIENT NAME: Junaid Sahu DATE: May 30, 2024 TIME: 12:46 PM CNPN Observed: 05/30/2024 12:00 AM Status: COMPLETED Source: [facility] Telephone (HEMAWS) JUNAID SAHU ([id number]) 1955 M Date Time Provider Department 05/30/24 CHAPIN BARRAGAN During your visit today, we recorded the following information about you: Chapin Barragan DO 05/30/2024 5:24 PM Signed Can let him know the CT scan showed a small nodule in the right lower lung. This is different from the nodule that was observed previously on PET scan in 2022 at [facility]. At this time, I do not recommend biopsy but repeat CT scan chest without contrast in about 3 months for close follow-up. Please pend order. DO Ishmael Sims Pamela S, LPN 06/02/2024 9:46 AM Addendum Spoke with pts. , informed for pt. To check his my chart concerning recent CT results. Pt. Is scheduled for OV on 4/9 to discuss those results, wondering if they need to keep that appt. . Also sent Dr. Barragan response to CT scan to pt. My chart. voiced understanding. PSS please reach out to get CT scan of chest in 3 months scheduled, with OV couple days later to discuss results. Dr. Barragan please sign orders for CT chest , also would you want a NM bone whole body scan and CT scan of Abd/pelvis also. All orders pended ,sign what you want LFIP Van Paul A, DO 06/02/2024 5:[address] chest without contrast. No need for OV 06/04. F/U after next CT DO Ishmael Sims Pamela S, LPN 06/03/2024 8:23 AM Signed Spoke with pt informed No need for OV 06/04. PSS please schedule CT scan chest without contrast in about 3 months with OV couple days after, and notify pt. FLIP Van, Linh 06/03/2024 10:10 AM Signed Scheduled with spouse Allergies As of Date: 05/30/2024 Noted Allergy Reaction VICODIN (HYDROCODONE-ACETAMINOPHE*04/12/2006 9 - Itching Date Reviewed: 05/29/2024 Reviewed by: Marimar Merino, RT(R) - Fully Assessed Reason for Visit: Results [95] Primary Visit Diagnosis:Lung nodule [R91.1] Other Visit Diagnosis:Malignant neoplasm of prostate (HCC) [C61] Order(s):CT CHEST WO GIO [[id number]] Order #: [id number] FUTURE Prescriptions as of 06/03/2024 - aspirin 81 mg cap Take 1 tablet by mouth once daily. - traZODone (DESYREL) 50 mg tablet Take 50 mg by mouth daily at bedtime. - acetaminophen (TYLENOL EXTRA STRENGTH) 500 mg tablet Take 500 mg by mouth every 8 hours as needed. - sildenafil (VIAGRA) 100 mg tablet Take 1 tablet by mouth once daily as needed. - omeprazole (PRILOSEC) 40 mg capsule Take 40 mg by mouth once daily. - cetirizine (ZYRTEC) 10 mg tablet Take 10 mg by mouth once daily. - morphine SR (MS CONTIN) 15 mg 12 hr tablet Take 5 mg by mouth two times a day. - diphenhydrAMINE (BENADRYL) 25 mg tablet Take 50 mg by mouth at bedtime as needed. - apixaban (ELIQUIS) 5 mg tab(s) Take 5 mg by mouth twice daily. - losartan (COZAAR) 50 mg tablet Take 50 mg by mouth once daily. - citalopram (CELEXA) 20 mg tablet Take 40 mg by mouth once daily. - Cholecalciferol, Vitamin D3, 25 mcg (1,000 unit) cap Take 1,000 Units by mouth once daily. Problem List As Of Date 05/30/2024 Noted Resolved MALIGN NEOPL PROSTATE [C61] 05/11/2006 LOC PRIM OSTEOART-UNSPEC [M19.91] 08/19/2007 JOINT PAIN-UP/ARM [M25.529] 09/16/2007 SURGERY FOLLOWUP NEC [Z09] 10/10/2007 Pulmonary embolus (HCC) [I26.99] 09/07/2020 Encounter Status:Closed by BETTY QUIÑONES on 06/03/24 PROGRESS Observed: 05/20/2024 9:01 AM Status: COMPLETED Source: [facility] HNO ID: [id number] Author: RENITA ALBA LPN Service: ? Author Type: LICENSED NURSE Type: Progress Notes Filed: 05/20/2024 09:04 Note Text: Eligard and Prolia injections cancelled per Dr Barragan. See office visit note from today. Renita Alba LPN PROGRESS Observed: 05/20/2024 8:30 AM Status: COMPLETED Source: [facility] HNO ID: [id number] Author: CHAPIN BARRAGAN DO Service: ? Author Type: Physician Type: Progress Notes Filed: 05/20/2024 08:56 Note Text: Diagnosis: 1) Castrate sensitive prostate cancer. 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 Was found to have an elevated PSA in early 2006 as part of routine testing. Was referred to Dr. Song who repeated PSA (4.38 ng/mL) and performed biopsy 04/2006. 1. LEFT PROSTATE, NEEDLE BIOPSIES (A) - BENIGN PROSTATIC TISSUE. - BENIGN PORTION OF SEMINAL VESICLE/EJACULATORY. 2. RIGHT PROSTATE, NEEDLE BIOPSIES (B) - ADENOCARCINOMA OF THE PROSTATE, NANY SCORE 4+3=7 INVOLVING 6 OF 8 CORES (90%, 90%, 90%, 40%, 10%, AND 5% OF THE LENGTH OF EACH CORE). - HIGH-GRADE PROSTATIC INTRAEPITHELIAL NEOPLASIA. - PERINEURAL INVASION IS IDENTIFIED. - BENIGN FRAGMENT OF SEMINAL VESICLE/EJACULATORY DUCT. Patient sought opinion at [facility] where he underwent robotic prostatectomy summer 2006. Pathology showed extracapsular extension but negative margins. Pelvic lymph nodes were negative. He had been found to have a rising PSA following an undetectable PSA for approximately 2 years following surgery. In November 2008, the PSA was 0.1 ng per mL. Increase to 0.3 ng per mL in September of 2009. He was found to be 0.4 ng per mL in October 2010 with a subsequent increase to 1.44 ng/mL in April of 2012. Underwent salvage radiation 08/15/12 to 10/08/12. The patient has chronic low back pain. 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 MRI lumbar spine 10/18/2018: There is a new, large central and right paracentral disc protrusion at L3-L4 with inferior migration as described in detail above. Mild to moderate multilevel degenerative disc disease as described above. Underwent left knee replacement on 07/28/2019. Pathology demonstrated degenerative joint disease. He was on aspirin following surgery. He presented to the ED on 07/31 with complaints of increasing shortness of breath. CT chest 08/01/2019: There is evidence of intraluminal filling defects in the right interlobar artery as well as multiple branches in the right lower lobe pulmonary artery. This is in keeping with pulmonary emboli. There is also evidence of intraluminal filling defects in the left lower lobe pulmonary arterial branches. Normal thoracic aorta and visualized great vessels. There is no demonstrated aortic dissection. Normal heart and pericardium. There are visualized mediastinal lymph nodes, which are within normal size limits, and with normal morphology. Normal hilar regions. Normal visualized trachea and bronchi. The lungs are well expanded. Normal pulmonary parenchyma. Normal pleura. Normal chest wall structures. There are degenerative changes of thoracic spine. There is a 3 cm x 2.1 cm cyst in the medial upper pole of the left kidney. Small hiatal hernia. IMPRESSION: Pulmonary emboli in the right interlobar artery extending into the right lower lobe pulmonary arterial branches as well as multiple pulmonary emboli in left lower lobe pulmonary arterial branches. Only the proximal veins were examined on the right. On the left the proximal and below knee veins were assessed. Anticoagulated on Eliquis. His PCP advised him to seek my opinion regarding duration of anticoagulation and whether or not hypercoagulability testing indicated. Current therapy: 1) Leuprolide. Was having much more labile mood despite use of Celexa. He was also having more hot flashes and frustrated over lack of libido. Had a URI with cough. Blood tinged sputum. CTA chest [facility] 05/03. No PE. 2.1 x1.5 x1.7 cm spiculated mass peripheral lateral RUL. Referred to Dr. Parisi. PET 05/30/2022--RUL lesion 16.4 mm SUV 3.5 fulfilled criteria for neoplasm. Additional RUL nodule SUV 1.8. Not malignant. CT guided core needle (5 cores) of nodule 06/16/2022. Pathology: Mild fibrosis, anthracotic pigment, no cancer. Presents for ongoing oncologic management. Interim history: him 01/2024 due to mood swings and manic episodes. Has always been inclined toward this, but seems worse on leuprolide. Seeing a psychiatrist. Declines meds. Had several hot flashes since most recent injection. Stable nocturia. Continues with CPM for chronic LBP and hip pain. No change. PMH, medications and allergies personally reviewed by me today. Any changes documented in appropriate section. ROS: Constitutional: Denies episodes of fever and night sweats. Not significantly fatigued. Neuro: Denies NIETO, vertigo and imbalance. No symptoms of neuropathy. HEENT: No recent change in voice, vision or hearing. Resp: Denies cough, wheeze and hemoptysis. No shortness of breath at rest. No GRIFFIN. CVS: Denies exertional chest pain, PND, orthopnea and LE edema. GI: Denies reflux, n/v, change in bowel habits and abdominal pain. No symptoms of stomatitis. : See above. Endo: See above. Derm: No rash. Heme: No unusual bleeding or bruising. Psych: Depressed mood over current medical circumstances.. PHYSICAL EXAM: VITALS: Blood pressure 143/75, pulse 62, temperature 36.6 ?C (97.9 ?F), temperature source Temporal, weight 110.5 kg (243 lb 8 oz), SpO2 96%. Well-appearing and in no acute distress. EYES: Sclerae are anicteric bilaterally. LYMPHATIC: There is no palpable cervical or supraclavicular adenopathy. RESPIRATORY: Inspiratory breath sounds are of normal intensity in all vargas. No rales, wheezes or rhonchi. Expiratory phase is normal. CARDIOVASCULAR: Rhythm is regular, ABD: Non-distended. Extremities: No swelling or edema. ASSESSMENT/PLAN: (C61) Malignant neoplasm of prostate (HCC) (primary encounter diagnosis) Assessment: -Biochemical progression of prostate cancer following robotic prostatectomy summer 2006. -Underwent salvage radiation 07/2012. -Castration sensitive M0 disease. -Reviewed other labs as well. -History of mild hypercalcemia with high normal PTH. -Discussion of goals of care. Prolongation of survival with ADT, but his mental issues are quite significant--unclear if exacerbated by testosterone suppression. Plan: -Discontinue Zoldex. -See back after CT chest--consider bicalutamide. -Monitor calcium. -PCP to monitor lipids and other modifiable cardiovascular risk factors. -Monitor PSA. -Hold Prolia. (I27.82) Chronic pulmonary embolism without acute cor pulmonale, unspecified pulmonary embolism type (HCC) Assessment: -Postoperative pulmonary embolism. -Episode of pulmonary embolus him in 2015. Ultrasound legs at that time negative. No provoking factors. -He is tolerating anticoagulation without any unusual bleeding or unexplained bruising. Plan: -Indefinite anticoagulation (active malignancy and previous unprovoked PE). Lung nodule. Assessment: -Biopsy negative. 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 endorses hasn't seen him in over a year. Plan: -CT chest. Portions of this documentation were copied and pasted from my previous office visit note dated 2023 in order to provide a cohesive continuity of the history. The note has been reviewed and edited and updated as necessary. Chapin Barragan DO CNOVSP Observed: 05/20/2024 8:30 AM Status: COMPLETED Source: [facility] Visit (SP) Office (PAULINE) EMREJUNAID Jessica ([id number]) 1955 M Date Time Provider Department 05/20/24 8:30 AM CHAPIN BARRAGAN During your visit today, we recorded the following information about you: Temperature Pulse Blood pressure Weight 97.9 degrees 62/minute 143/75 110.5 kg Chapin Barragan DO 05/20/2024 8:56 AM Signed Diagnosis: 1) Castrate sensitive prostate cancer. 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 Was found to have an elevated PSA in early 2006 as part of routine testing. Was referred to Dr. Song who repeated PSA (4.38 ng/mL) and performed biopsy 04/2006. 1. LEFT PROSTATE, NEEDLE BIOPSIES (A) - BENIGN PROSTATIC TISSUE. - BENIGN PORTION OF SEMINAL VESICLE/EJACULATORY. 2. RIGHT PROSTATE, NEEDLE BIOPSIES (B) - ADENOCARCINOMA OF THE PROSTATE, NANY SCORE 4+3=7 INVOLVING 6 OF 8 CORES (90%, 90%, 90%, 40%, 10%, AND 5% OF THE LENGTH OF EACH CORE). - HIGH-GRADE PROSTATIC INTRAEPITHELIAL NEOPLASIA. - PERINEURAL INVASION IS IDENTIFIED. - BENIGN FRAGMENT OF SEMINAL VESICLE/EJACULATORY DUCT. Patient sought opinion at [facility] where he underwent robotic prostatectomy summer 2006. Pathology showed extracapsular extension but negative margins. Pelvic lymph nodes were negative. He had been found to have a rising PSA following an undetectable PSA for approximately 2 years following surgery. In November 2008, the PSA was 0.1 ng per mL. Increase to 0.3 ng per mL in September of 2009. He was found to be 0.4 ng per mL in October 2010 with a subsequent increase to 1.44 ng/mL in April of 2012. Underwent salvage radiation 08/15/12 to 10/08/12. The patient has chronic low back pain. 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 MRI lumbar spine 10/18/2018: There is a new, large central and right paracentral disc protrusion at L3-L4 with inferior migration as described in detail above. Mild to moderate multilevel degenerative disc disease as described above. Underwent left knee replacement on 07/28/2019. Pathology demonstrated degenerative joint disease. He was on aspirin following surgery. He presented to the ED on 07/31 with complaints of increasing shortness of breath. CT chest 08/01/2019: There is evidence of intraluminal filling defects in the right interlobar artery as well as multiple branches in the right lower lobe pulmonary artery. This is in keeping with pulmonary emboli. There is also evidence of intraluminal filling defects in the left lower lobe pulmonary arterial branches. Normal thoracic aorta and visualized great vessels. There is no demonstrated aortic dissection. Normal heart and pericardium. There are visualized mediastinal lymph nodes, which are within normal size limits, and with normal morphology. Normal hilar regions. Normal visualized trachea and bronchi. The lungs are well expanded. Normal pulmonary parenchyma. Normal pleura. Normal chest wall structures. There are degenerative changes of thoracic spine. There is a 3 cm x 2.1 cm cyst in the medial upper pole of the left kidney. Small hiatal hernia. IMPRESSION: Pulmonary emboli in the right interlobar artery extending into the right lower lobe pulmonary arterial branches as well as multiple pulmonary emboli in left lower lobe pulmonary arterial branches. Only the proximal veins were examined on the right. On the left the proximal and below knee veins were assessed. Anticoagulated on Eliquis. His PCP advised him to seek my opinion regarding duration of anticoagulation and whether or not hypercoagulability testing indicated. Current therapy: 1) Leuprolide. Was having much more labile mood despite use of Celexa. He was also having more hot flashes and frustrated over lack of libido. Had a URI with cough. Blood tinged sputum. CTA chest [facility] 05/03. No PE. 2.1 x1.5 x1.7 cm spiculated mass peripheral lateral RUL. Referred to Dr. Parisi. PET 05/30/2022--RUL lesion 16.4 mm SUV 3.5 fulfilled criteria for neoplasm. Additional RUL nodule SUV 1.8. Not malignant. CT guided core needle (5 cores) of nodule 06/16/2022. Pathology: Mild fibrosis, anthracotic pigment, no cancer. Presents for ongoing oncologic management. Interim history: him 01/2024 due to mood swings and manic episodes. Has always been inclined toward this, but seems worse on leuprolide. Seeing a psychiatrist. Declines meds. Had several hot flashes since most recent injection. Stable nocturia. Continues with CPM for chronic LBP and hip pain. No change. PMH, medications and allergies personally reviewed by me today. Any changes documented in appropriate section. ROS: Constitutional: Denies episodes of fever and night sweats. Not significantly fatigued. Neuro: Denies NIETO, vertigo and imbalance. No symptoms of neuropathy. HEENT: No recent change in voice, vision or hearing. Resp: Denies cough, wheeze and hemoptysis. No shortness of breath at rest. No GRIFFIN. CVS: Denies exertional chest pain, PND, orthopnea and LE edema. GI: Denies reflux, n/v, change in bowel habits and abdominal pain. No symptoms of stomatitis. : See above. Endo: See above. Derm: No rash. Heme: No unusual bleeding or bruising. Psych: Depressed mood over current medical circumstances.. PHYSICAL EXAM: VITALS: Blood pressure 143/75, pulse 62, temperature 36.6 ?C (97.9 ?F), temperature source Temporal, weight 110.5 kg (243 lb 8 oz), SpO2 96%. Well-appearing and in no acute distress. EYES: Sclerae are anicteric bilaterally. LYMPHATIC: There is no palpable cervical or supraclavicular adenopathy. RESPIRATORY: Inspiratory breath sounds are of normal intensity in all vargas. No rales, wheezes or rhonchi. Expiratory phase is normal. CARDIOVASCULAR: Rhythm is regular, ABD: Non-distended. Extremities: No swelling or edema. ASSESSMENT/PLAN: (C61) Malignant neoplasm of prostate (HCC) (primary encounter diagnosis) Assessment: -Biochemical progression of prostate cancer following robotic prostatectomy summer 2006. -Underwent salvage radiation 07/2012. -Castration sensitive M0 disease. -Reviewed other labs as well. -History of mild hypercalcemia with high normal PTH. -Discussion of goals of care. Prolongation of survival with ADT, but his mental issues are quite significant--unclear if exacerbated by testosterone suppression. Plan: -Discontinue Zoldex. -See back after CT chest--consider bicalutamide. -Monitor calcium. -PCP to monitor lipids and other modifiable cardiovascular risk factors. -Monitor PSA. -Hold Prolia. (I27.82) Chronic pulmonary embolism without acute cor pulmonale, unspecified pulmonary embolism type (HCC) Assessment: -Postoperative pulmonary embolism. -Episode of pulmonary embolus him in 2015. Ultrasound legs at that time negative. No provoking factors. -He is tolerating anticoagulation without any unusual bleeding or unexplained bruising. Plan: -Indefinite anticoagulation (active malignancy and previous unprovoked PE). Lung nodule. Assessment: -Biopsy negative. 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 endorses hasn't seen him in over a year. Plan: -CT chest. Portions of this documentation were copied and pasted from my previous office visit note dated 2023 in order to provide a cohesive continuity of the history. The note has been reviewed and edited and updated as necessary. Chapin Barragan DO Referring Provider: CHAPIN BARRAGAN [[id number]] Allergies As of Date: 05/20/2024 Noted Allergy Reaction VICODIN (HYDROCODONE-ACETAMINOPHE*04/12/2006 9 - Itching Date Reviewed: 05/20/2024 Reviewed by: Casey Carlin MA - Fully Assessed Reason for Visit: Established Patient [175] Primary Visit Diagnosis:Malignant neoplasm of prostate (HCC) [C61] Other Visit Diagnoses:Other chronic pulmonary embolism without acute cor pulmonale (HCC) [I27.82] Lung nodule [R91.1] Lung nodules [R91.8] Order(s):CT CHEST W IVCON [[id number]] Order #: [id number] FUTURE iv contrast (will be provided with radiology test)CT Chest W -Inject, intravenously, once for 1 dose.No IV access, insert saline lock prior to the beginning of sedation, infusion, injection of imaging exam. Discontinue saline lock post exam. If Pt. has a central line or IVAD, may access for administration according to line specific nursing protocol. Once exam is complete flush line and de-access according to line specific nursing protocol in the CT contrast administration guidelines link.Disp: 1 EachRfl: 0 Level of Service: OFFICE/OUTPATIENT ESTABLISHED MOD [facility] 30 MIN [19638] Follow-up and Disposition History for Encounter Date Provider Department Center 05/20/2024 [id number] BARRAGAN [facility] Prescriptions as of 05/20/2024 - aspirin 81 mg cap Take 1 tablet by mouth once daily. - traZODone (DESYREL) 50 mg tablet Take 50 mg by mouth daily at bedtime. - iv contrast (will be provided with radiology test) CT Chest W -Inject, intravenously, once for 1 dose.No IV access, insert saline lock prior to the beginning of sedation, infusion, injection of imaging exam. Discontinue saline lock post exam. If Pt. has a central line or IVAD, may access for administration according to line specific nursing protocol. Once exam is complete flush line and de-access according to line specific nursing protocol in the CT contrast administration guidelines link. - acetaminophen (TYLENOL EXTRA STRENGTH) 500 mg tablet Take 500 mg by mouth every 8 hours as needed. - sildenafil (VIAGRA) 100 mg tablet Take 1 tablet by mouth once daily as needed. - omeprazole (PRILOSEC) 40 mg capsule Take 40 mg by mouth once daily. - cetirizine (ZYRTEC) 10 mg tablet Take 10 mg by mouth once daily. - morphine SR (MS CONTIN) 15 mg 12 hr tablet Take 5 mg by mouth two times a day. - diphenhydrAMINE (BENADRYL) 25 mg tablet Take 50 mg by mouth at bedtime as needed. - apixaban (ELIQUIS) 5 mg tab(s) Take 5 mg by mouth twice daily. - losartan (COZAAR) 50 mg tablet Take 50 mg by mouth once daily. - citalopram (CELEXA) 20 mg tablet Take 40 mg by mouth once daily. - Cholecalciferol, Vitamin D3, 25 mcg (1,000 unit) cap Take 1,000 Units by mouth once daily. Facility-Administered Medications as of 05/20/2024 - denosumab 60 mg injection (PROLIA) Medication notes this encounter OMEPRAZOLE 40 MG CAPSULE,DELAYED RELEASE >> Casey Carlin MA 05/20/2024 8:25 AM >> CASEY CARLIN May 20, 2024 8:25 AM D/C >> Casey Carlin MA 05/20/2024 8:26 AM >> CASEY CARLIN May 20, 2024 8:26 AM Pt, states he does take MORPHINE ER 15 MG TABLET,EXTENDED RELEASE >> Casey Carlin MA 05/20/2024 8:29 AM >> CASEY CARLIN May 20, 2024 8:29 AM dosage decrease Problem List As Of Date 05/20/2024 Noted Resolved MALIGN NEOPL PROSTATE [C61] 05/11/2006 LOC PRIM OSTEOART-UNSPEC [M19.91] 08/19/2007 JOINT PAIN-UP/ARM [M25.529] 09/16/2007 SURGERY FOLLOWUP NEC [Z09] 10/10/2007 Pulmonary embolus (HCC) [I26.99] 09/07/2020 Encounter Status:Closed by CHAPIN BARRAGAN on 05/20/24 CBC W AUTO DIFF BLD Collected: 05/12/2024 7:[address] atus: F Source: [facility] Order Comment: Specimen Type : BLOOD SPECIMEN Ordering Facility: [facility] Address: [address] [place] [address] TYPE CODE TESTS RESULT OUT OF RANGE REFERENCE UNITS LAB 6690-2(LOINC) WBC # Bld Auto 6.55 3.70-11.00 k/uL LAB 789-8(LOINC) RBC # Bld Auto 3.94 Low 4.20-6.00 m/ uL LAB 718-7(LOINC) Hgb Bld-mCnc 12.4 Low 13.0-17.0 g/dL LAB 4544-3(LOINC) Hct VFr Bld Auto 36.0 Low 39.0-51.0 % LAB 787-2(LOINC) MCV RBC Auto 91.4 80.0-100.0 fL LAB 785-6(LOINC) MCH RBC Qn Auto 31.5 26.0-34.0 p g LAB 786-4([facility]) MCHC RBC Auto-mCnc 34.4 30.5-36.0 g/dL LAB 69794-4([facility]) RDW RBC-Rto 12.7 11.5-15.0 % LAB 777-3([facility]) Platelet # Bld Auto 233 150-400 k/uL LAB 39170-5([facility]) PMV Bld Auto 8.8 Low 9.0-12.7 fL LAB 770-8([facility]) Neutrophils/leuk NFr Bld Auto 60.8 % LAB 751-8([facility]) Neutrophils # Bld Auto 3.98 1.45-7.50 k/uL LAB 736-9([facility]) Lymphocytes/leuk NFr Bld Auto 20.9 % LAB 731-0([facility]) Lymphocytes # Bld Auto 1.37 1.00-4.00 k/uL LAB 5905-5([facility]) Monocytes/leuk NFr Bld Auto 13.7 % LAB 742-7([facility]) Monocytes # Bld Auto 0.90 High <0.87 k/uL LAB 713-8([facility]) Eosinophil/leuk NFr Bld Auto 3.5 % LAB 711-2([facility]) Eosinophil # Bld Auto 0.23 <0.46 k/uL LAB 706-2([facility]) Basophils/leuk NFr Bld Auto 0.6 % LAB 704-7([facility]) Basophils # Bld Auto 0.04 <0.11 k/uL LAB 29219-7([facility]) Imm Granulocytes/mary beth k NFr Bld Auto 0.5 % LAB 57874-4([facility]) Imm Granulocytes # Bld Auto 0.03 <0.10 k/uL LAB 74902-3([facility]) nRBC/100 WBC Bld-Rto 0.0 /100 WBC LAB 771-6([facility]) nRBC # Bld Auto <0.01 <0.01 k/u L LAB 72967-6([facility]) Differential method Bld Auto Performed By: #### [id number] # ### [facility] CLIA [id number] [address] [place] [id number] [place] [address] [place] PSA SERPL-MCNC Collected: 7:07 AM Status: F Source: [facility] Comment: Specimen Type : BLOOD SPECIMEN Ordering Facility: [facility] Address: [address] [place] [address] TYPE CODE TESTS RESULT OUT OF RANGE REFERENCE UNITS LAB 2857-1(LOINC) PSA SerPl-mCnc 0.08 <2.60 ng/mL Result Comment: Total PSA te st methodology used is the Electrochemiluminescence Immunoassay by [employer]. Total PSA values by differing methodologies cannot be interchanged. Performed By: #### 2857-1 ## ## [facility] CLIA [id number] [address] [place] [address] [place] COMP METAB 2000 PNL SERPL Collected: 7:07 AM Status: F Source: [facility] Comment: Specimen Type : BLOOD SPECIMEN Ordering Facility: [facility] Address: [address] [place] [address] TYPE CODE TESTS RESULT OUT OF RANGE REFERENCE UNITS LAB 2885-2(LOINC) Prot SerPl-mCnc 7.3 6.3-8.0 g/dL LAB 1751-7(LOINC) Albumin SerPl-mCnc 4.2 3.9-4.9 g/dL LAB 25366-8(LOINC) Calcium SerPl-mCnc 10.1 8.5-10.2 mg/dL LAB 1975-2(LOINC) Bilirub SerPl-mCnc 0.6 0.2-1.3 mg/dL LAB 6768-6(LOINC) ALP SerPl-cCnc 59 38-113 U/L LAB 1920-8(LOINC) AST SerPl-cCnc 32 14-40 U/L LAB 1742-6(LOINC) ALT SerPl-cCnc 33 10-54 U/L LAB 2345-7(LOINC) Glucose SerPl-mCnc 105 High 74-99 mg/dL Result Comment: The [place] [employer] (ADA) provides guidance for cutoff values for fasting glucose and random glucose. The ADA defines fasting as no caloric intake for at least 8 hours. Fasting plasma glucose results between 100 to 125 mg/dL indicate increased risk for diabetes (prediabetes). Fasting plasma glucose results greater than or equal to 126 mg/dL meet the criteria for diagnosis of diabetes. In the absence of unequivocal hyperglycemia, results should be confirmed by repeat testing. In a patient with classic symptoms of hyperglycemia or hyperglycemic crisis, random plasma glucose results greater than or equal to 200 mg/dL meet the criteria for diagnosis of diabetes. Reference: Standards of Medical Care in Diabetes 2016, [place] [employer]. Diabetes Care. 2016.39(Suppl 1). LAB 3094-0(LOINC) BUN SerPl-mCnc 21 9-24 mg/ dL LAB 2160-0(LOINC) Creat SerPl-mCnc 1.04 0.73-1.22 mg/dL LAB 2951-2(LOINC) Sodium SerPl-sCnc 134 Low 136-144 mmol/L LAB 2823-3(LOINC) Potassium SerPl-sCnc 4.1 3.7-5.1 mmol/L LAB 2075-0(LOINC) Chloride SerPl-sCnc 99 98-107 mmol/L LAB 2027-9(LOINC) CO2 SerPl-sCnc 22 22-30 mmo l/L LAB 70639-5(LOINC) Anion Gap SerPl-sCnc 13 8-15 mmol/L LAB 44937-3(LOINC) Creatinine + eGFR Pnl SerPlBld 77 >=60 mL/min/1 .73m??? Result Comment: Estimated Gl omerular Filtration Rate (eGFR) is calculated using the 2020 CKD-EPI creatinine equation. This equation utilizes serum creatinine, sex, and age as parameters. The creatinine assay has traceable calibration to isotope dilution-mass spectrometry. Refer to KDIGO guidelines for clinical interpretation. In patients with unstable renal function, e.g. those with acute kidney injury, the eGFR may not accurately reflect actual GFR. Performed By: #### [id number] # ### [facility] CLIA [id number] [address] [place] [address] [place] Observed: 02/14/2024 10:30 AM Status: COMPLETED Source: [facility] Visit (SP) Office (HEMRADHA) EMREJUNAID Davis ([id number]) 1955 M Date Time Provider Department 02/14/24 10:30 AM ISRAEL HERNÁNDEZ During your visit today, we recorded the following information about you: Temperature Pulse Blood pressure Weight 98.2 degrees 80/minute 128/81 111.1 kg Israel Hernández 02/15/2024 12:55 PM Signed Junaid Sahu 1955 02/14/2024 Diagnosis: 1) Castrate sensitive prostate cancer. 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 Was found to have an elevated PSA in early 2006 as part of routine testing. Was referred to Dr. Song who repeated PSA (4.38 ng/mL) and performed biopsy 04/2006. 1. LEFT PROSTATE, NEEDLE BIOPSIES (A) - BENIGN PROSTATIC TISSUE. - BENIGN PORTION OF SEMINAL VESICLE/EJACULATORY. 2. RIGHT PROSTATE, NEEDLE BIOPSIES (B) - ADENOCARCINOMA OF THE PROSTATE, NANY SCORE 4+3=7 INVOLVING 6 OF 8 CORES (90%, 90%, 90%, 40%, 10%, AND 5% OF THE LENGTH OF EACH CORE). - HIGH-GRADE PROSTATIC INTRAEPITHELIAL NEOPLASIA. - PERINEURAL INVASION IS IDENTIFIED. - BENIGN FRAGMENT OF SEMINAL VESICLE/EJACULATORY DUCT. Patient sought opinion at [facility] where he underwent robotic prostatectomy summer 2006. Pathology showed extracapsular extension but negative margins. Pelvic lymph nodes were negative. He had been found to have a rising PSA following an undetectable PSA for approximately 2 years following surgery. In November 2008, the PSA was 0.1 ng per mL. Increase to 0.3 ng per mL in September of 2009. He was found to be 0.4 ng per mL in October 2010 with a subsequent increase to 1.44 ng/mL in April of 2012. Underwent salvage radiation 08/15/12 to 10/08/12. The patient has chronic low back pain. 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 MRI lumbar spine 10/18/2018: There is a new, large central and right paracentral disc protrusion at L3-L4 with inferior migration as described in detail above. Mild to moderate multilevel degenerative disc disease as described above. Underwent left knee replacement on 07/28/2019. Pathology demonstrated degenerative joint disease. He was on aspirin following surgery. He presented to the ED on 07/31 with complaints of increasing shortness of breath. CT chest 08/01/2019: There is evidence of intraluminal filling defects in the right interlobar artery as well as multiple branches in the right lower lobe pulmonary artery. This is in keeping with pulmonary emboli. There is also evidence of intraluminal filling defects in the left lower lobe pulmonary arterial branches. Normal thoracic aorta and visualized great vessels. There is no demonstrated aortic dissection. Normal heart and pericardium. There are visualized mediastinal lymph nodes, which are within normal size limits, and with normal morphology. Normal hilar regions. Normal visualized trachea and bronchi. The lungs are well expanded. Normal pulmonary parenchyma. Normal pleura. Normal chest wall structures. There are degenerative changes of thoracic spine. There is a 3 cm x 2.1 cm cyst in the medial upper pole of the left kidney. Small hiatal hernia. IMPRESSION: Pulmonary emboli in the right interlobar artery extending into the right lower lobe pulmonary arterial branches as well as multiple pulmonary emboli in left lower lobe pulmonary arterial branches. Only the proximal veins were examined on the right. On the left the proximal and below knee veins were assessed. Anticoagulated on Eliquis. His PCP advised him to seek my opinion regarding duration of anticoagulation and whether or not hypercoagulability testing indicated. Current therapy: 1) Lupron 7.5mg IM monthly. Had a URI with cough about 6 months ago. Blood tinged sputum. CTA chest [facility] 05/03. No PE. 2.1 x1.5 x1.7 cm spiculated mass peripheral lateral RUL. Referred to Dr. Parisi. PET 05/30/2022--RUL lesion 16.4 mm SUV 3.5 fulfilled criteria for neoplasm. Additional RUL nodule SUV 1.8. Not malignant. CT guided core needle (5 cores) of nodule 06/16/2022. Pathology: Mild fibrosis, anthracotic pigment, no cancer. Presents for ongoing oncologic management. Interim history: Reviewed labs with him today. Denies new issue. [place] like he pulled a groin muscle lifting a few months back. No pain currently. Otherwise no new aches or pains. Appetite and energy level are stable. No unintentional weight loss. Denies any changes in bowel or bladder habits. No hematuria, hematochezia. Denies SOB, CP. No bleeding or bruising. Denies HF, NS currently He reports that he is talking vit d drinking milk nightly. Discussed rise in PSA and resuming lupron, he is agreeable. PMH, medications and allergies as below personally reviewed by me today. Any changes documented in appropriate section. ROS: Constitutional: Denies episodes of fever and night sweats. Not significantly fatigued. All systems reviewed on 02/14/2024 with pertinent positives and negatives as outlined in the interval history. PHYSICAL EXAM: VITALS: Blood pressure 128/81, pulse 80, temperature 36.8 ?C (98.2 ?F), weight 111.1 kg (245 lb), SpO2 97%. Well-appearing and in no acute distress. EYES: Sclerae are anicteric bilaterally. RESPIRATORY: Inspiratory breath sounds are of normal intensity in all vargas. No rales, wheezes or rhonchi. Expiratory phase is normal. CARDIOVASCULAR: Rhythm is regular. Normal intensity S1/S2. There is no gallop or murmur. ABD: Non-distended. Extremities: No swelling or edema. I have performed the physical exam today (02/14/2024) and have edited the note to correlate with current findings. LABS: Lab Results Component Value Date PSA 1.12 02/11/2024 PSA 0.37 2023 PSA 0.21 07/26/2023 PSA 0.07 04/26/2023 PSA <0.02 10/23/2022 PSA <0.02 07/31/2022 PSA <0.02 01/31/2022 PSA 0.02 07/26/2021 PSA 0.04 05/03/2021 PSA 0.06 02/10/2021 ASSESSMENT/PLAN: (C61) Malignant neoplasm of prostate (HCC) (primary encounter diagnosis) Assessment: -Biochemical progression of prostate cancer following robotic prostatectomy summer 2006. -Underwent salvage radiation 07/2012. -Castration sensitive M0 disease. -Was having much more labile mood despite use of Celexa. He was also having more hot flashes and frustrated over lack of libido. -Reviewed other labs as well. -Mild hypercalcemia with high normal PTH. Reviewed today's labs. -reviewed PSA doubling time would recommend resuming ADT. Pt state he was expecting this and is agreeable to restart lupron today. Plan: -Continue Lupron today, pt is agreeable -Monitor calcium. -PCP to monitor lipids and other modifiable cardiovascular risk factors. -Reassess with CMP/PSA/Testosterone followed by office visit and in Lupron in about 3 months. -Hold Prolia. (I27.82) Chronic pulmonary embolism without acute cor pulmonale, unspecified pulmonary embolism type (HCC) Assessment: -Postoperative pulmonary embolism. -Episode of pulmonary embolus him in 2015. Ultrasound legs at that time negative. No provoking factors. -He is tolerating anticoagulation without any unusual bleeding or unexplained bruising. Plan: -Indefinite anticoagulation (active malignancy and previous unprovoked PE). Lung nodule. Assessment: -Biopsy negative. Plan: -Follow-up with Dr. Parisi for further surveillance imaging if indicated. RTC in 3 months with labs. Israel Hernández APRN.HARDWARE MANAGER I spent a total of 30 minutes on the date of the service which included preparing to see the patient, [id number] patient care, completing clinical documentation, obtaining and/or reviewing separately obtained history, and performing a medically appropriate examination. Portions of this note including HPI, ROS, impression/plan may have been copied forward as to provide important historical information essential in contributing to medical decision making. Documentation has been reviewed and edited as necessary to support clinical decision making for today's visit and to reflect my own independent evaluation of this patient. Referring Provider: CHAPIN BARRAGAN [[id number]] Allergies As of Date: 02/14/2024 Noted Allergy Reaction VICODIN (HYDROCODONE-ACETAMINOPHE*04/12/2006 9 - Itching Date Reviewed: 02/14/2024 Reviewed by: Israel Hernández - Fully Assessed Reason for Visit: Established Patient [175] Primary Visit Diagnosis:Malignant neoplasm of prostate (HCC) [C61] Other Visit Diagnoses:Lung nodule [R91.1] Other chronic pulmonary embolism without acute cor pulmonale (HCC) [I27.82] Order(s):TREATMENT PARAMETER-NOT NEEDED [[id number]] Order #: [id number]: 1 BCN NURSING COMMUNICATION [[id number]] Order #: [id number]: 1 BCN NURSING COMMUNICATION [[id number]] Order #: [id number]: 1 STANDING [] leuprolide 22.5 mg injection (LUPRON DEPOT)Disp: Rfl: Disposition: Return in about 3 months (around 05/14/2024). Follow-up and Disposition History for Encounter Date Provider Department Center 02/14/2024 [id number] HERNÁNDEZ [place] [employer] Prescriptions as of 02/15/2024 - acetaminophen (TYLENOL EXTRA STRENGTH) 500 mg tablet Take 500 mg by mouth every 8 hours as needed. - sildenafil (VIAGRA) 100 mg tablet Take 1 tablet by mouth once daily as needed. - omeprazole (PRILOSEC) 40 mg capsule Take 40 mg by mouth once daily. - risperiDONE (RISPERDAL) 0.5 mg tablet Take 0.5 mg by mouth once daily. - TRELEGY ELLIPTA 200-62.5-25 mcg inhalation powder Inhale 1 Puff as instructed once daily. - cetirizine (ZYRTEC) 10 mg tablet Take 10 mg by mouth once daily. - morphine SR (MS CONTIN) 15 mg 12 hr tablet Take 15 mg by mouth twice daily. - diphenhydrAMINE (BENADRYL) 25 mg tablet Take 50 mg by mouth at bedtime as needed. - apixaban (ELIQUIS) 5 mg tab(s) Take 5 mg by mouth twice daily. - losartan (COZAAR) 50 mg tablet Take 50 mg by mouth once daily. - citalopram (CELEXA) 20 mg tablet Take 40 mg by mouth once daily. - Cholecalciferol, Vitamin D3, 25 mcg (1,000 unit) cap Take 1,000 Units by mouth once daily. Problem List As Of Date 02/14/2024 Noted Resolved MALIGN NEOPL PROSTATE [C61] 05/11/2006 LOC PRIM OSTEOART-UNSPEC [M19.91] 08/19/2007 JOINT PAIN-UP/ARM [M25.529] 09/16/2007 SURGERY FOLLOWUP NEC [Z09] 10/10/2007 Pulmonary embolus (HCC) [I26.99] 09/07/2020 Encounter Status:Closed by ISRAEL HERNÁNDEZ on 02/15/24 PROGRESS Observed: 02/14/2024 10:30 AM Status: COMPLETED Source: [facility] HNO ID: [id number] Author: ISRAEL HERNÁNDEZ, ? Service: ? Author Type: Nurse Practitioner Type: Progress Notes Filed: 02/15/2024 12:55 Note Text: Junaid Sahu 1955 02/14/2024 Diagnosis: 1) Castrate sensitive prostate cancer. 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 Was found to have an elevated PSA in early 2006 as part of routine testing. Was referred to Dr. Song who repeated PSA (4.38 ng/mL) and performed biopsy 04/2006. 1. LEFT PROSTATE, NEEDLE BIOPSIES (A) - BENIGN PROSTATIC TISSUE. - BENIGN PORTION OF SEMINAL VESICLE/EJACULATORY. 2. RIGHT PROSTATE, NEEDLE BIOPSIES (B) - ADENOCARCINOMA OF THE PROSTATE, NANY SCORE 4+3=7 INVOLVING 6 OF 8 CORES (90%, 90%, 90%, 40%, 10%, AND 5% OF THE LENGTH OF EACH CORE). - HIGH-GRADE PROSTATIC INTRAEPITHELIAL NEOPLASIA. - PERINEURAL INVASION IS IDENTIFIED. - BENIGN FRAGMENT OF SEMINAL VESICLE/EJACULATORY DUCT. Patient sought opinion at [facility] where he underwent robotic prostatectomy summer 2006. Pathology showed extracapsular extension but negative margins. Pelvic lymph nodes were negative. He had been found to have a rising PSA following an undetectable PSA for approximately 2 years following surgery. In November 2008, the PSA was 0.1 ng per mL. Increase to 0.3 ng per mL in September of 2009. He was found to be 0.4 ng per mL in October 2010 with a subsequent increase to 1.44 ng/mL in April of 2012. Underwent salvage radiation 08/15/12 to 10/08/12. The patient has chronic low back pain. 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 MRI lumbar spine 10/18/2018: There is a new, large central and right paracentral disc protrusion at L3-L4 with inferior migration as described in detail above. Mild to moderate multilevel degenerative disc disease as described above. Underwent left knee replacement on 07/28/2019. Pathology demonstrated degenerative joint disease. He was on aspirin following surgery. He presented to the ED on 07/31 with complaints of increasing shortness of breath. CT chest 08/01/2019: There is evidence of intraluminal filling defects in the right interlobar artery as well as multiple branches in the right lower lobe pulmonary artery. This is in keeping with pulmonary emboli. There is also evidence of intraluminal filling defects in the left lower lobe pulmonary arterial branches. Normal thoracic aorta and visualized great vessels. There is no demonstrated aortic dissection. Normal heart and pericardium. There are visualized mediastinal lymph nodes, which are within normal size limits, and with normal morphology. Normal hilar regions. Normal visualized trachea and bronchi. The lungs are well expanded. Normal pulmonary parenchyma. Normal pleura. Normal chest wall structures. There are degenerative changes of thoracic spine. There is a 3 cm x 2.1 cm cyst in the medial upper pole of the left kidney. Small hiatal hernia. IMPRESSION: Pulmonary emboli in the right interlobar artery extending into the right lower lobe pulmonary arterial branches as well as multiple pulmonary emboli in left lower lobe pulmonary arterial branches. Only the proximal veins were examined on the right. On the left the proximal and below knee veins were assessed. Anticoagulated on Eliquis. His PCP advised him to seek my opinion regarding duration of anticoagulation and whether or not hypercoagulability testing indicated. Current therapy: 1) Lupron 7.5mg IM monthly. Had a URI with cough about 6 months ago. Blood tinged sputum. CTA chest [facility] 05/03. No PE. 2.1 x1.5 x1.7 cm spiculated mass peripheral lateral RUL. Referred to Dr. Parisi. PET 05/30/2022--RUL lesion 16.4 mm SUV 3.5 fulfilled criteria for neoplasm. Additional RUL nodule SUV 1.8. Not malignant. CT guided core needle (5 cores) of nodule 06/16/2022. Pathology: Mild fibrosis, anthracotic pigment, no cancer. Presents for ongoing oncologic management. Interim history: Reviewed labs with him today. Denies new issue. [place] like he pulled a groin muscle lifting a few months back. No pain currently. Otherwise no new aches or pains. Appetite and energy level are stable. No unintentional weight loss. Denies any changes in bowel or bladder habits. No hematuria, hematochezia. Denies SOB, CP. No bleeding or bruising. Denies HF, NS currently He reports that he is talking vit d drinking milk nightly. Discussed rise in PSA and resuming lupron, he is agreeable. PMH, medications and allergies as below personally reviewed by me today. Any changes documented in appropriate section. ROS: Constitutional: Denies episodes of fever and night sweats. Not significantly fatigued. All systems reviewed on 02/14/2024 with pertinent positives and negatives as outlined in the interval history. PHYSICAL EXAM: VITALS: Blood pressure 128/81, pulse 80, temperature 36.8 ?C (98.2 ?F), weight 111.1 kg (245 lb), SpO2 97%. Well-appearing and in no acute distress. EYES: Sclerae are anicteric bilaterally. RESPIRATORY: Inspiratory breath sounds are of normal intensity in all vargas. No rales, wheezes or rhonchi. Expiratory phase is normal. CARDIOVASCULAR: Rhythm is regular. Normal intensity S1/S2. There is no gallop or murmur. ABD: Non-distended. Extremities: No swelling or edema. I have performed the physical exam today (02/14/2024) and have edited the note to correlate with current findings. LABS: Lab Results Component Value Date PSA 1.12 02/11/2024 PSA 0.37 2023 PSA 0.21 07/26/2023 PSA 0.07 04/26/2023 PSA <0.02 10/23/2022 PSA <0.02 07/31/2022 PSA <0.02 01/31/2022 PSA 0.02 07/26/2021 PSA 0.04 05/03/2021 PSA 0.06 02/10/2021 ASSESSMENT/PLAN: (C61) Malignant neoplasm of prostate (HCC) (primary encounter diagnosis) Assessment: -Biochemical progression of prostate cancer following robotic prostatectomy summer 2006. -Underwent salvage radiation 07/2012. -Castration sensitive M0 disease. -Was having much more labile mood despite use of Celexa. He was also having more hot flashes and frustrated over lack of libido. -Reviewed other labs as well. -Mild hypercalcemia with high normal PTH. Reviewed today's labs. -reviewed PSA doubling time would recommend resuming ADT. Pt state he was expecting this and is agreeable to restart lupron today. Plan: -Continue Lupron today, pt is agreeable -Monitor calcium. -PCP to monitor lipids and other modifiable cardiovascular risk factors. -Reassess with CMP/PSA/Testosterone followed by office visit and in Lupron in about 3 months. -Hold Prolia. (I27.82) Chronic pulmonary embolism without acute cor pulmonale, unspecified pulmonary embolism type (HCC) Assessment: -Postoperative pulmonary embolism. -Episode of pulmonary embolus him in 2015. Ultrasound legs at that time negative. No provoking factors. -He is tolerating anticoagulation without any unusual bleeding or unexplained bruising. Plan: -Indefinite anticoagulation (active malignancy and previous unprovoked PE). Lung nodule. Assessment: -Biopsy negative. Plan: -Follow-up with Dr. Parisi for further surveillance imaging if indicated. RTC in 3 months with labs. Israel Hernández APRN.HARDWARE MANAGER I spent a total of 30 minutes on the date of the service which included preparing to see the patient, [id number] patient care, completing clinical documentation, obtaining and/or reviewing separately obtained history, and performing a medically appropriate examination. Portions of this note including HPI, ROS, impression/plan may have been copied forward as to provide important historical information essential in contributing to medical decision making. Documentation has been reviewed and edited as necessary to support clinical decision making for today's visit and to reflect my own independent evaluation of this patient. TESTOSTERONE, FREE AND TOTAL , BY EQUILIBRIUM ULTRAFILTRATION MASS SPECTROMETRY Collected: 02/11/2024 10:14 AM Status: F Source: [facility] Order Comment: Specimen Type : BLOOD SPECIMEN Ordering Facility: [facility] Address: [address] [place] [address] TYPE CODE TESTS RESULT OUT OF RANGE REFERENCE UNITS LAB 2986-8(LOINC) Testost SerPl-mCnc 214.3 Low 264.0-916.0 ng/dL Result Comment: This [facility] LC/MS-MS method is currently certified by the CDC Hormone Standardization Program (HoSt). Adult male reference interval is based on a population of healthy nonobese males (BMI <30) between 19 and 39 years old. Mark, et.al. JCEM 2017,102;1526-5663. PMID: 35324629. LAB 2991-8(LOINC) Testost Free SerPl-mCnc 5.12 5.00-21.00 ng/dL LAB 71207-3(LOINC) Testost Free MFr SerPl 2.39 1.50-4.20 % Performed By: #### TFTEST ## ## [facility] CLIA [id number] [address] [place] [address] COMP METAB 2000 PNL SERPL Collected: 10:14 AM Status: F Source: [facility] Comment: Specimen Type : BLOOD SPECIMEN Ordering Facility: [facility] Address: [address] [place] [address] TYPE CODE TESTS RESULT OUT OF RANGE REFERENCE UNITS LAB 2885-2(LOINC) Prot SerPl-mCnc 7.6 6.3-8.0 g/dL LAB 1751-7(LOINC) Albumin SerPl-mCnc 4.6 3.9-4.9 g/dL LAB 20191-6(LOINC) Calcium SerPl-mCnc 10.6 High 8.5-10.2 mg/dL LAB 1975-2(LOINC) Bilirub SerPl-mCnc 0.5 0.2-1.3 mg/dL LAB 6768-6(LOINC) ALP SerPl-cCnc 36 Low 38-113 U/L LAB 1920-8(LOINC) AST SerPl-cCnc 38 14-40 U/L LAB 1742-6(LOINC) ALT SerPl-cCnc 35 10-54 U/L LAB 2345-7(LOINC) Glucose SerPl-mCnc 115 High 74-99 mg/dL Result Comment: The [place] Diabetes Association (ADA) provides guidance for cutoff values for fasting glucose and random glucose. The ADA defines fasting as no caloric intake for at least 8 hours. Fasting plasma glucose results between 100 to 125 mg/dL indicate increased risk for diabetes (prediabetes). Fasting plasma glucose results greater than or equal to 126 mg/dL meet the criteria for diagnosis of diabetes. In the absence of unequivocal hyperglycemia, results should be confirmed by repeat testing. In a patient with classic symptoms of hyperglycemia or hyperglycemic crisis, random plasma glucose results greater than or equal to 200 mg/dL meet the criteria for diagnosis of diabetes. Reference: Standards of Medical Care in Diabetes 2016, [place] [employer] Association. Diabetes Care. 2016.39(Suppl 1). LAB 3094-0(LOINC) BUN SerPl-mCnc 20 9-24 mg/ dL LAB 2160-0(LOINC) Creat SerPl-mCnc 1.13 0.73-1.22 mg/dL LAB 2951-2(LOINC) Sodium SerPl-sCnc 139 136-144 mmol/L LAB 2823-3(LOINC) Potassium SerPl-sCnc 4.3 3.7-5.1 mmol/L LAB 2075-0(LOINC) Chloride SerPl-sCnc 103 98-107 mmol/L LAB 2028-9(LOINC) CO2 SerPl-sCnc 26 22-30 mmo l/L LAB 95266-3(LOINC) Anion Gap SerPl-sCnc 10 8-15 mmol/L LAB 54943-2(LOINC) Creatinine + eGFR Pnl SerPlBld 70 >=60 mL/min/1 .73m??? Result Comment: Estimated Gl omerular Filtration Rate (eGFR) is calculated using the 2020 CKD-EPI creatinine equation. This equation utilizes serum creatinine, sex, and age as parameters. The creatinine assay has traceable calibration to isotope dilution-mass spectrometry. Refer to KDIGO guidelines for clinical interpretation. In patients with unstable renal function, e.g. those with acute kidney injury, the eGFR may not accurately reflect actual GFR. Performed By: #### [id number] # ### [facility] CLIA [id number] [address] [place] [address] [place] CBC W AUTO DIFF BLD Collected: 02/11/2024 10:14 AM S tatus: F Source: [facility] Order Comment: Specimen Type : BLOOD SPECIMEN Ordering Facility: [facility] Address: [address] [place] [address] TYPE CODE TESTS RESULT OUT OF RANGE REFERENCE UNITS LAB 6690-2([facility]) WBC # Bld Auto 4.64 3.70-11.00 k/uL LAB 789-8([facility]) RBC # Bld Auto 4.47 4.20-6.00 m/ uL LAB 718-7([facility]) Hgb Bld-mCnc 14.2 13.0-17.0 g/dL LAB 4544-3([facility]) Hct VFr Bld Auto 41.7 39.0-51.0 % LAB 787-2([facility]) MCV RBC Auto 93.3 80.0-100.0 fL LAB 785-6([facility]) MCH RBC Qn Auto 31.8 26.0-34.0 p g LAB 786-4([facility]) MCHC RBC Auto-mCnc 34.1 30.5-36.0 g/dL LAB 81436-5([facility]) RDW RBC-Rto 13.5 11.5-15.0 % LAB 777-3([facility]) Platelet # Bld Auto 267 150-400 k/uL LAB 44119-1([facility]) PMV Bld Auto 8.4 Low 9.0-12.7 fL LAB 770-8([facility]) Neutrophils/leuk NFr Bld Auto 51.6 % LAB 751-8([facility]) Neutrophils # Bld Auto 2.40 1.45-7.50 k/uL LAB 736-9([facility]) Lymphocytes/leuk NFr Bld Auto 30.0 % LAB 731-0([facility]) Lymphocytes # Bld Auto 1.39 1.00-4.00 k/uL LAB 5905-5([facility]) Monocytes/leuk NFr Bld Auto 13.4 % LAB 742-7([facility]) Monocytes # Bld Auto 0.62 <0.87 k/uL LAB 713-8([facility]) Eosinophil/leuk NFr Bld Auto 3.7 % LAB 711-2([facility]) Eosinophil # Bld Auto 0.17 <0.46 k/uL LAB 706-2([facility]) Basophils/leuk NFr Bld Auto 0.9 % LAB 704-7(LOINC) Basophils # Bld Auto 0.04 <0.11 k/uL LAB 19987-3(LOINC) Imm Granulocytes/mary beth k NFr Bld Auto 0.4 % LAB 09266-6(LOINC) Imm Granulocytes # Bld Auto <0.03 <0.10 k/uL LAB 58365-8(LOINC) nRBC/100 WBC Bld-Rto 0.0 /100 WBC LAB 771-6(LOINC) nRBC # Bld Auto <0.01 <0.01 k/u L LAB 30337-9(LOINC) Differential method Bld Auto Performed By: #### 48773-2 # ### [facility] CLIA [id number] [address] [place] [address] [place] PSA SERPL-MCNC Collected: 4 10:14 AM Status: F Source: [facility] Order Comment: Specimen Type : BLOOD SPECIMEN Ordering Facility: [facility] Address: [address] [place] [address] TYPE CODE TESTS RESULT OUT OF RANGE REFERENCE UNITS LAB 2857-1([facility]) PSA SerPl-mCnc 1.12 <2.60 ng/mL Result Comment: Total PSA te st methodology used is the Electrochemiluminescence Immunoassay by [employer]. Total PSA values by differing methodologies cannot be interchanged. Performed By: #### 2857-1 ## ## [facility] CLIA [id number] [address] [place] [address] [place] ALLERGIES DATE TYPE / CODE NAME / CODE REACTION SEVERITY SOURCE 04/12/2006 DRUG/[id number](SN OMED CT) HYDROCODONE-ACETA MINOPHEN ITCHING [facility] ENCOUNTERS ADMIT/DISCHARGE ACCOUNT NUMBER ADMITTING ENCOUNTER CLASS LOC ATION SOURCE 11/14/2024/ 5 [id number] [facility] HospitalBuild ing:WOL2 [facility] 11/14/2024/ 5 [id number] [facility] HospitalBuild ing:WOHE [facility] 11/12/2024/ 5 [id number] [facility] HospitalBuild ing:WOL2 [facility] 11/11/2024/ 5 [id number] [facility] HospitalBuild ing:WOL2 [facility] 09/02/2024 [id number] [facility] HospitalBuild ing:WOCT [facility] 05/30/2024/ 5 [id number] [facility] HospitalBuild ing:WOCT [facility] 05/20/2024/ 5 [id number] [facility] HospitalBuild ing:WOHE [facility] 05/20/2024/ 5 [id number] [facility] HospitalBuild ing:WOHE [facility] 05/12/2024/ 5 [id number] [facility] HospitalBuild ing:WOL2 [facility] 02/14/2024/ 4 [id number] [facility] HospitalBuild ing:WOHE [facility] 02/11/2024/ 4 [id number] [facility]WOL2 [facility] PAYERS ENCOUNTER GUARANTOR PAYER SUBSCRIBER SOURCE 11/14/2024 Primary Insuranc e:MEDICARE A AND BPolicy Number: [id number] Date:6137-54-36Epll Name:Pk POLLARD: [id number] [place] [address] [facility] 11/14/2024 Secondary Insura nce:AETNA MEDICARE SUPPLEMENTPolicy Number: [id number] Date:8620-20-76Kddc Name:Marcella POLLARD: [id number] [place] [address] [facility] 11/14/2024 Primary Insuranc e:MEDICARE A AND BPolicy Number: [id number] Date:4947-46-47Nsmk Name:Pk POLLARD: [id number] [place] [address] [facility] 11/14/2024 Secondary Insura nce:AETNA MEDICARE SUPPLEMENTPolicy Number: [id number] Date:5728-67-58Ykqq Name:Marcella MEADOWSOB: [id number] [place] [address] [facility] 11/12/2024 Primary Insuranc e:MEDICARE A AND BPolicy Number: [id number] Date:2268-80-26Dssa Name:Pk MEADOWSOB: [id number] [place], [place] [address] [place] [address] 11/12/2024 Secondary Insura nce:AETNA MEDICARE SUPPLEMENTPolicy Number: [id number] Date:9280-33-10Gbui Name:Marcella POWELLVITOOB: [id number] [place], [place] [address] [place] [address] 11/11/2024 Primary Insuranc e:MEDICARE A AND BPolicy Number: [id number] Date:4403-71-94Tlga Name:Pk MEADOWSTAO: [id number] [place] [address] [facility] 11/11/2024 Secondary Insura nce:AETNA MEDICARE SUPPLEMENTPolicy Number: [id number] Date:5200-33-59Nflg Name:Marcella MEADOWSOB: [id number] [place] [address] [facility] 09/02/2024 Primary Insuranc e:MEDICARE A AND BPolicy Number: [id number] Date:7049-21-31Hhds Name:Pk MEADOWSOB: [id number] [place] [address] [facility] 09/02/2024 Secondary Insura nce:AETNA MEDICARE SUPPLEMENTPolicy Number: [id number] Date:0347-51-63Livt Name:Marcella MEADOWSOB: [id number] [place] [address] [facility] 05/30/2024 Primary Insuranc e:MEDICARE A AND BPolicy Number: [id number] Date:2871-91-69Gggd Name:Pk MEADOWSOB: [id number] [place] [address] [facility] 05/30/2024 Secondary Insura nce:AETNA MEDICARE SUPPLEMENTPolicy Number: [id number] Date:0813-72-07Bxpy Name:Marcella MEADOWSOB: [id number] [place] [address] [facility] 05/20/2024 Primary Insuranc e:MEDICARE A AND BPolicy Number: [id number] Date:0657-19-30Crrg Name:Pk MEADOWSOB: [id number] [place] [address] [facility] 05/20/2024 Secondary Insura nce:AETNA MEDICARE SUPPLEMENTPolicy Number: [id number] Date:9443-18-72Fdci Name:Marcella MEADOWSOB: [id number] [place] [address] [facility] 05/20/2024 Primary Insuranc e:MEDICARE A AND BPolicy Number: [id number] Date:0492-62-85Soav Name:Pk MEADOWSOB: [id number] [place] [address] [facility] 05/20/2024 Secondary Insura nce:AETNA MEDICARE SUPPLEMENTPolicy Number: [id number] Date:1394-80-57Zgvy Name:Marcella MEADOWSOB: [id number] [place] [address] [facility] 05/12/2024 Primary Insuranc e:MEDICARE A AND BPolicy Number: [id number] Date:0601-47-52Yfab Name:Pk MEADOWSOB: [id number] [place] [address] [facility] 05/12/2024 Secondary Insura nce:AETNA MEDICARE SUPPLEMENTPolicy Number: [id number] Date:2926-53-73Lfby Name:Marcella POWELLVITOOB: [id number] [place] [address] [facility] 02/14/2024 Primary Insuranc e:MEDICARE A AND BPolicy Number: [id number] Date:0145-99-98Smld Name:Pk MEADOWSOB: [id number] [place] [address] [facility] 02/14/2024 Secondary Insura nce:AETNA MEDICARE SUPPLEMENTPolicy Number: [id number] Date:3095-74-01Vfkh Name:Marcella Jessica DORIOB: [id number] [place] [address] [facility] 02/11/2024 Primary Insuranc e:MEDICARE A AND BPolicy Number: [id number] Date:3417-24-81Vdpe Name:Pk POWELLVITOOB: [id number] [place] [address] [facility] 02/11/2024 Secondary Insura nce:AETNA MEDICARE SUPPLEMENTPolicy Number: [id number] Date:1015-73-44Sjnv Name:Marcella Jessica LATRICE: [id number] [place] [address] [facility]
--- NOTE | 2024-11-25 08:00 | PET_ITS ---
PROCEDURE: PET/CT TUMOR WB SUBS 11/25/2024 REASON FOR EXAM: 69 y/o M with PYLARIFY Malignant neoplasm of the prostate. TECHNIQUE: Procedure Code: [id number] Modality: PT Procedure: PET/CT TUMOR WB SUBS Following the intravenous administration of radionucleotide, image acquisition on a dedicated PET/CT unit was performed at one hour post injection. A preliminary CT study encompassing the Head, neck, chest, abdomen, pelvis, and bilateral lower extremities I think it is make no is above the with a Kelly not the correct the telephone no some of the switch than with the hemorrhage since 60 sounds good was performed for purposes of attenuation correction and anatomic localization. The proximal thighs were also included. RADIOPHARMACEUTICAL: 9.18 mCi Pylarify (Piflufolastat F18) - Prostate Specific Membrane Agent - IV was injected into he patient. RADIATION DOSE SUMMARY: Effective Dose: Approximately 7 mSv for a standard whole-body PET scan Organ Doses: Varies by organ, with higher doses typically to the bladder, liver, and brain COMPARISON: COMPARISON FROM CT, PET OR OTHER PERTINENT EXAMS: Prior PET-CT examination of 06/19/2023. FINDINGS: Physiologic uptake: There may be expected metabolic uptake within the brain, tongue and floor of the mouth and larynx/vocal cords, heart, trevor (many normal individuals have hilar uptake in less than 3 nodes with mildly avid hilar nodes less than 2.7 SUV), liver and spleen, system, and GI tract and symmetric muscle uptake. FDG AVID AND NON-AVID LESIONS. Reported avid SUV values (g/mL*) are maximum SUV. NECK: There are no significant neck abnormalities. CHEST: Prominent coronary artery calcification is noted. Right apical pleural-parenchymal scarring is noted. Chest wall- There are no significant chest wall abnormalities. Axilla- There are no significant axillary abnormalities. Lung parenchyma- There are no significant lung parenchyma abnormalities. Mediastinum- There are no significant hilar or mediastinal adenopathy. Pleura- There are no significant pleural abnormalities. ABDOMEN: Moderate aortic and iliac artery calcification is seen; no evidence of abdominal aortic aneurysm. Stomach- No significant abnormalities. Liver- No significant abnormalities. Spleen- No significant abnormalities. Pancrease- No significant abnormalities. Kidneys- No significant abnormalities. Bowel- Normal bowel activity. Spine- No significant abnormalities. PELVIS: Mild sigmoid diverticulosis. Bowel- Normal physiologic bowel activity is identified. Masses- There are no pelvic masses. LOWER EXTREMITIES: Metallic artifact from a left knee prosthesis noted. Bones- Prominent degenerative changes of the spine are noted. With the use of bone window settings, there are no osteolytic or osteoblastic lesions. There are no FDG avid lesions within the visualized portion of the axial skeleton. PET/PET/CT Tumor WB Subs IMPRESSION: FDG avid- No significant avid lesions. Other: 1. Prominent coronary artery calcification. 2. Moderate aortic and iliac artery calcification is seen; no evidence of abdom inal aortic aneurysm. 3. Mild sigmoid diverticulosis. 4. Prominent degenerative changes of the spine. Please note the low-dose CT scan was performed to facilitate PET image reconstr uction and anatomic localization and does not replace a diagnostic CT. Any diagnostic CT requested and performed at the time of the PET will be reported separately. Reading Location: [id number]
== END | disposition home or self-care (01) ==
PROVIDERS: PCP Internal Medicine; Referring Provider Internal Medicine Hematology & Oncology; Visit Provider Internal Medicine Hematology & Oncology
DX: C61 Malignant neoplasm of prostate (principal)
CPT/HCPCS: 78816; A9595

== ENCOUNTER → 2024-12-16 | Outpatient (CLI) | payer MEDICARE, OTHER, SELFPAY ==
--- NOTE | 2024-12-16 06:52 | MRI_ITS ---
PROCEDURE: BRAIN W/WO CONTRAST 12/16/2024 REASON FOR EXAM: PROSTATE CANCER, RISING PSA TECHNIQUE: Procedure Code: [id number] Modality: MR Procedure: BRAIN W/WO CONTRAST Multiplanar and multisequence images were obtained. CONTRAST: VOLUME: mL FINDINGS: Moderate generalized atrophy with commensurate ventriculomegaly. A few scattered FLAIR hyperintense foci are noted within the bilateral cerebral white matter, nonspecific and nonenhancing. Otherwise the brain parenchyma appears unremarkable. The morris-white matter differentiation is appropriate. The ventricles are normal in size and configuration. No midline shift. The midline structures are intact, specifically the corpus callosum, septum pellucidum, pituitary gland, and cerebellar vermis. The cervicomedullary junction appears unremarkable. The paranasal sinuses and mastoid air cells are clear. The visualized osseous structures appear unremarkable without focal signal abnormality. Evidence of bilateral cataract surgery. Diffusion-weighted images demonstrate no restricted diffusion. No abnormal enhancement pattern. MRI/Brain W/WO Contrast IMPRESSION: 1. Moderate generalized atrophy. 2. A few nonspecific, nonenhancing FLAIR hyperintense foci within the bilatera l cerebral white matter. Diagnostic considerations include minimal chronic microvascular ischemic changes and findi ngs which can be seen in patients experiencing migraine headaches. 3. No abnormal enhancement to suggest metastatic lesions. Reading Location: [id number]
== END | disposition home or self-care (01) ==
LOC: OPMRI 07:06
PROVIDERS: PCP Internal Medicine; Referring Provider Internal Medicine Hematology & Oncology; Visit Provider Internal Medicine Hematology & Oncology
DX: C61 Malignant neoplasm of prostate (principal); R25.1 Tremor, unspecified
CPT/HCPCS: 70553; A9575

== ENCOUNTER → 2025-01-06 | Outpatient (CLI) | payer MEDICARE, OTHER, SELFPAY ==
--- NOTE | 2025-01-06 08:50 | CDU_ITS ---
Reason For Study VL/Carotid Duplex Ultrasound
== END | disposition home or self-care (01) ==
LOC: CVS 08:45
PROVIDERS: PCP Internal Medicine
DX: R09.89 Other specified symptoms and signs involving the circulatory and respiratory systems (principal)
CPT/HCPCS: 93880

== ENCOUNTER → 2025-01-09 | Outpatient (CLI) | payer MEDICARE, OTHER, SELFPAY ==
--- NOTE | 2025-01-09 10:02 | NM_ITS ---
PROCEDURE: PARATHYROID SCAN REASON FOR EXAM: PARATHYROID SCAN TECHNIQUE: Procedure Code: NMPTHY Modality: NM Procedure: PARATHYROID SCAN Imaging performed following intravenous technetium-99m sestamibi administration. Anterior imaging of the neck through hours. RADIOPHARMACEUTICAL: Intravenous administration of 28.0 mCi technetium 99 M sestamibi COMPARISON: Prior study of 08/20/2023. FINDINGS: Immediate and delayed images show homogeneous and symmetric thyroid activity, markedly diminished on delayed imaging. No area of persistent or increased uptake is seen to suggest the presence of abnormal parathyroid tissue. NM/Parathyroid Scan IMPRESSION: Negative examination. No findings of abnormal parathyroid tissue within imaged areas. Reading Location: [place] [address]
== END | disposition home or self-care (01) ==
LOC: NM 09:58
PROVIDERS: PCP Internal Medicine; Referring Provider Internal Medicine; Visit Provider Internal Medicine
DX: R79.89 Other specified abnormal findings of blood chemistry (principal)
CPT/HCPCS: 78070; A9500